=== PATIENT | male | born 1960 | race Caucasian/White ===

== ENCOUNTER 2019-02-24 13:40 | Observation (INO) | payer OTHER ==
[~2019-02-24] VITALS: Ht 177.8 cm; Wt 127.0 kg
--- OUTSIDE RECORDS SUMMARY | 2019-02-24 13:43 | XMS REPORT ---
Author Author [facility] Address Unknown Phone Unavailable Care Team Providers Care Balance Bridge Inspector Name Role Phone ZENIA DAVIS Unavailable Unavailable COOKIE COMBS Unavailable Unavailable Problems This patient has no known problems. Allergies, Adverse Reactions, Alerts This patient has no known allergies or adverse reactions. Medications This patient has no known medications. Results Test Description Test Time Test Comments Text Results Atomic Results Result Comments BASIC METABOLIC PANEL 2018-07-15 05:49:00 SODIUM (BEAKER) (test hwum=167) 142 meq/L 136-145 POTASSIUM (BEAKER) (test wufd=665) 3.9 meq/L 3.5-5.1 CHLORIDE (BEAKER) (test mjma=371) 111 meq/L 98-107 CO2 (BEAKER) (test nboj=469) 22 meq/L 22-29 BLOOD UREA NITROGEN (BEAKER) (test ojmt=957) 16 mg/dL 7-21 CREATININE (BEAKER) (test usxi=147) 1.34 mg/dL 0.57-1.25 GLUCOSE RANDOM (BEAKER) (test relw=294) 94 mg/dL 70-105 CALCIUM (BEAKER) (test oicc=827) 8.6 mg/dL 8.4-10.2 EGFR (BEAKER) (test oucr=8307) 54 mL/min/1.73 sq m ESTIMATED GFR IS NOT ACCURATE CREATININE CLEARANCE IN PREDICTING GLOMERULAR FILTRATION RATE. ESTIMATED GFR IS NOT APPLICABLE FOR DIALYSIS PATIENTS. CBC (HEMOGRAM ONLY)2018-07-15 05:33:00* Test Item Value Reference Range Comments WHITE BLOOD CELL COUNT (BEAKER) (test mjtl=352) 5.8 K/ L 3.5-10.5 RED BLOOD CELL COUNT (BEAKER) (test hebu=355) 3.49 M/ L 4.63-6.08 HEMOGLOBIN (BEAKER) (test fuuy=399) 11.1 GM/DL 13.7-17.5 HEMATOCRIT (BEAKER) (test xgkd=467) 32.1 % 40.1-51.0 MEAN CORPUSCULAR VOLUME (BEAKER) (test qcit=309) 92.0 fL 79.0-92.2 MEAN CORPUSCULAR HEMOGLOBIN (BEAKER) (test xxjp=876) 31.8 pg 25.7-32.2 MEAN CORPUSCULAR HEMOGLOBIN CONC (BEAKER) (test xgxx=659) 34.6 GM/DL 32.3-36.5 RED CELL DISTRIBUTION WIDTH (BEAKER) (test rxrl=224) 13.8 % 11.6-14.4 PLATELET COUNT (BEAKER) (test flau=479) 80 K/CU MM 150-450 MEAN PLATELET VOLUME (BEAKER) (test ouuy=713) 11.7 fL 9.4-12.4 NUCLEATED RED BLOOD CELLS (BEAKER) (test sdby=811) 0 /100 WBC 0-0 [id number] 18:50:00* Test Item Value Reference Range Comments ACTIVATED CLOTTING TIME (BEAKER) (test dhvx=097) 268 sec TESTED AT [place] [id number] 18:50:00* Test Item Value Reference Range Comments ACTIVATED CLOTTING TIME (BEAKER) (test ujvu=936) 252 sec TESTED AT [place] [id number] 18:50:00* Test Item Value Reference Range Comments ACTIVATED CLOTTING TIME (BEAKER) (test tlat=458) 241 sec TESTED AT [address] [id number] 05:27:00* Test Item Value Reference Range Comments PHOSPHORUS (BEAKER) (test qlcp=668) 3.6 mg/dL 2.3-4.7 [id number] 05:27:00* Test Item Value Reference Range Comments MAGNESIUM (BEAKER) (test eceq=185) 2.0 mg/dL 1.6-2.6 BASIC METABOLIC [id number] 05:27:00* Test Item Value Reference Range Comments SODIUM (BEAKER) (test honq=471) 141 meq/L 136-145 POTASSIUM (BEAKER) (test bjhm=878) 3.6 meq/L 3.5-5.1 CHLORIDE (BEAKER) (test rywe=879) 110 meq/L 98-107 CO2 (BEAKER) (test tdlb=733) 22 meq/L 22-29 BLOOD UREA NITROGEN (BEAKER) (test nwwg=173) 19 mg/dL 7-21 CREATININE (BEAKER) (test bkxn=415) 1.37 mg/dL 0.57-1.25 GLUCOSE RANDOM (BEAKER) (test dbvr=960) 95 mg/dL 70-105 CALCIUM (BEAKER) (test pmgp=414) 8.7 mg/dL 8.4-10.2 EGFR (BEAKER) (test chiy=9978) 53 mL/min/1.73 sq m ESTIMATED GFR IS NOT ACCURATE CREATININE CLEARANCE IN PREDICTING GLOMERULAR FILTRATION RATE. ESTIMATED GFR IS NOT APPLICABLE FOR DIALYSIS PATIENTS. CBC (HEMOGRAM ONLY)2018-07-14 05:04:00* Test Item Value Reference Range Comments WHITE BLOOD CELL COUNT (BEAKER) (test cpje=875) 5.5 K/ L 3.5-10.5 RED BLOOD CELL COUNT (BEAKER) (test npzn=067) 3.75 M/ L 4.63-6.08 HEMOGLOBIN (BEAKER) (test yytl=275) 11.7 GM/DL 13.7-17.5 HEMATOCRIT (BEAKER) (test qait=207) 34.1 % 40.1-51.0 MEAN CORPUSCULAR VOLUME (BEAKER) (test ztxv=519) 90.9 fL 79.0-92.2 MEAN CORPUSCULAR HEMOGLOBIN (BEAKER) (test psju=778) 31.2 pg 25.7-32.2 MEAN CORPUSCULAR HEMOGLOBIN CONC (BEAKER) (test uugo=907) 34.3 GM/DL 32.3-36.5 RED CELL DISTRIBUTION WIDTH (BEAKER) (test uyks=759) 13.4 % 11.6-14.4 PLATELET COUNT (BEAKER) (test uitr=585) 91 K/CU MM 150-450 MEAN PLATELET VOLUME (BEAKER) (test lmtk=369) 11.3 fL 9.4-12.4 NUCLEATED RED BLOOD CELLS (BEAKER) (test wsdb=863) 0 /100 WBC 0-0 PET, CARDIAC PERFUSION MULTIPLE STUDIES, REST AND [id number] 15:25:00 Reason for exam:->Chest pain, recent PCIFINAL REPORT PROCEDURE: Rest/Stress MYOCARDIAL PERFUSION PET with regadenoson\XA9\ CPT CODE: 67445 INDICATION: Chest pain HISTORY: Cardiac risk factors: The diabetes, hypertension, hyperlipidemia, CKD. Other cardiovascular history: CAD, MS, PCI, CHF. Recent cardiac symptoms: Chest pain. Current cardiovascular-related medications: Aspirin, carvedilol, bumetanide, atorvastatin. PROTOCOL: Limited low-dose CT imaging was performed for attenuation correction. 40.0 mCi of Rb-82 chloride was injected iv at rest, and gated PET (positron emission tomography) images were obtained. Subsequently, 40.1 mCi of Rb-82 chloride was injected iv at expected peak pharmacologic effect, and gated PET images were obtained. PRELIMINARY STRESS TEST DATA FROM NONINVASIVE CARDIOLOGY: Pharmacologic stress was by 10-second iv infusion of 0 .4 mg of regadenoson. Radiotracer was injected 30 seconds after start of stress. Heart rate was 62 beats/min at rest and 77 beats/min (48% of MPHR) at tracer in jection. BP was 127/74 mmHg at rest and 121/60 mmHg at tracer injection. Stress was stopped for predetermined endpoint. The patient experienced palpitations; tr eatment was not required. Preliminary ECG evaluation revealed sinus rhythm at re st and no ischemic changes with stress. (Final ECG interpretation and other stre ss and monitoring data are reported separately by Cardiology.) IMAGING FINDINGS : Study quality is good. Images obtained after stress injection show redu edita perfusion in the mid anterior wall and basal anterolateral wall. Resting mary kay ges show normal perfusion. LV volume appears normal. RV volume appears normal. G ated images obtained immediately after stress show normal LV wall motion. Gated images obtained at rest show normal LV wall motion. LVEF at rest is 52%. LVEF at stress is 58%. IMPRESSION: 1. Abnormal study. 2. Appropriate pharmacologic s tress. 3. Abnormal myocardial perfusion. There is a mild severity, medium size , reversible, perfusion defect in the midanterior and basal anterolateral LV. 4 . Normal resting LV function. No deterioration of function is noted with pharmac ologic stress. 5. Extracardiac tracer distribution is normal. 6. No previous [facility] study for comparison. Signed: Felipe Chan Verified Date/Time: 07/13/2018 15:25:45 Reading Location: [address] Nuc Med Reading Room [id number] 05:20:00* Test Item Value Reference Range Comments PHOSPHORUS (BEAKER) (test biei=472) 3.8 mg/dL 2.3-4.7 [id number] 05:20:00* Test Item Value Reference Range Comments MAGNESIUM (BEAKER) (test icqq=635) 1.7 mg/dL 1.6-2.6 BASIC METABOLIC [id number] 05:20:00* Test Item Value Reference Range Comments SODIUM (BEAKER) (test lttv=720) 143 meq/L 136-145 POTASSIUM (BEAKER) (test pfqw=154) 3.4 meq/L 3.5-5.1 CHLORIDE (BEAKER) (test lfkn=852) 110 meq/L 98-107 CO2 (BEAKER) (test nkip=658) 21 meq/L 22-29 BLOOD UREA NITROGEN (BEAKER) (test dlym=425) 20 mg/dL 7-21 CREATININE (BEAKER) (test kaka=581) 1.40 mg/dL 0.57-1.25 GLUCOSE RANDOM (BEAKER) (test yvlf=250) 85 mg/dL 70-105 CALCIUM (BEAKER) (test kssn=464) 8.7 mg/dL 8.4-10.2 EGFR (BEAKER) (test hsna=3607) 52 mL/min/1.73 sq m ESTIMATED GFR IS NOT ACCURATE CREATININE CLEARANCE IN PREDICTING GLOMERULAR FILTRATION RATE. ESTIMATED GFR IS NOT APPLICABLE FOR DIALYSIS PATIENTS. CBC (HEMOGRAM ONLY)2018-07-13 04:55:00* Test Item Value Reference Range Comments WHITE BLOOD CELL COUNT (BEAKER) (test ycfw=719) 5.3 K/ L 3.5-10.5 RED BLOOD CELL COUNT (BEAKER) (test imou=848) 3.64 M/ L 4.63-6.08 HEMOGLOBIN (BEAKER) (test wepx=236) 11.5 GM/DL 13.7-17.5 HEMATOCRIT (BEAKER) (test tnqo=639) 33.0 % 40.1-51.0 MEAN CORPUSCULAR VOLUME (BEAKER) (test dqla=758) 90.7 fL 79.0-92.2 MEAN CORPUSCULAR HEMOGLOBIN (BEAKER) (test glxp=219) 31.6 pg 25.7-32.2 MEAN CORPUSCULAR HEMOGLOBIN CONC (BEAKER) (test tjqm=735) 34.8 GM/DL 32.3-36.5 RED CELL DISTRIBUTION WIDTH (BEAKER) (test qbos=162) 13.6 % 11.6-14.4 PLATELET COUNT (BEAKER) (test twrf=349) 81 K/CU MM 150-450 MEAN PLATELET VOLUME (BEAKER) (test czko=074) 11.4 fL 9.4-12.4 NUCLEATED RED BLOOD CELLS (BEAKER) (test rwfk=468) 0 /100 WBC 0-0 BASIC METABOLIC [id number] 22:55:00* Test Item Value Reference Range Comments SODIUM (BEAKER) (test ezvu=136) 139 meq/L 136-145 POTASSIUM (BEAKER) (test gqma=652) 3.4 meq/L 3.5-5.1 CHLORIDE (BEAKER) (test cwjd=704) 106 meq/L 98-107 CO2 (BEAKER) (test ebdl=098) 25 meq/L 22-29 BLOOD UREA NITROGEN (BEAKER) (test nxnf=976) 24 mg/dL 7-21 CREATININE (BEAKER) (test athv=098) 1.45 mg/dL 0.57-1.25 GLUCOSE RANDOM (BEAKER) (test xdyd=819) 129 mg/dL 70-105 CALCIUM (BEAKER) (test dcwn=791) 8.8 mg/dL 8.4-10.2 EGFR (BEAKER) (test ghom=3593) 50 mL/min/1.73 sq m ESTIMATED GFR IS NOT ACCURATE CREATININE CLEARANCE IN PREDICTING GLOMERULAR FILTRATION RATE. ESTIMATED GFR IS NOT APPLICABLE FOR DIALYSIS PATIENTS. [id number] 06:04:00* Test Item Value Reference Range Comments PHOSPHORUS (BEAKER) (test radc=425) 3.9 mg/dL 2.3-4.7 [id number] 06:04:00* Test Item Value Reference Range Comments MAGNESIUM (BEAKER) (test aieb=850) 2.0 mg/dL 1.6-2.6 LIPID [id number] 06:04:00* Test Item Value Reference Range Comments TRIGLYCERIDES (BEAKER) (test vnav=239) 159 mg/dL CHOLESTEROL (JESSICA) (test hvtq=755) 111 mg/dL HDL CHOLESTEROL (JESSICA) (test kduy=319) 30 mg/dL LDL CHOLESTEROL CALCULATED (JESSICA) (test dicn=546) 49 mg/dL Triglyceride Reference Range: Low Risk <150 Borderline 150-199 High Risk 200-499 Very High Risk >=500Cholesterol Reference Range: Low Risk <200 Borderline 200-239 High Risk >240HDL Cholesterol Reference Range: Low Risk >=60 High Risk <40LDL Cholesterol Reference Range: Optimal <100 Near Optimal 100-129 Borderline 130-159 High 160-189 Very High >=190 TROPONIN [id number] 14:44:00* Test Item Value Reference Range Comments TROPONIN I (JESSICA) (test qqiy=234) 0.07 ng/mL 0.00-0.03 Troponin I (TnI) levels must be interpreted in the context of the presenting sym ptoms and the clinical findings. Elevated TnI levels indicate myocardial damage, but are not specific for ischemic heart disease. Elevated TnI levels are seen in patients with other cardiac conditions (including myocarditis and congestive h eart failure), and slight TnI elevations occur in patients with other conditions , including sepsis, renal failure, acidosis, acute neurological disease, and per sistent tachyarrhythmia.TROPONIN [id number] 06:25:00* Test Item Value Reference Range Comments TROPONIN I (JESSICA) (test jojl=688) 0.07 ng/mL 0.00-0.03 Troponin I (TnI) levels must be interpreted in the context of the presenting sym ptoms and the clinical findings. Elevated TnI levels indicate myocardial damage, but are not specific for ischemic heart disease. Elevated TnI levels are seen in patients with other cardiac conditions (including myocarditis and congestive h eart failure), and slight TnI elevations occur in patients with other conditions , including sepsis, renal failure, acidosis, acute neurological disease, and per sistent tachyarrhythmia.RAD, CHEST, 1 VIEW, NON [id number] 01:02:00Reason for exam:->CHEST PAINFINAL REPORT Chest, 1 view. History: Chest pain Comparison: Chest, 02/17/2018.. Findings: The cardiomediastinal silhouette and pulmonary vasculature are within normal limits for a portable exam. The lungs are clear without evidence of consolidation or effusion. The soft tissues and osseous structures are intact. IMPRESSION: No acute cardiopulmonary abnormality. Signed: Cally Moon Verified Date/Time: 07/11/2018 01:02:58 Reading Location: [facility] C013T Transitional Reading Room ONIN [id number] 00:32:00* Test Item Value Reference Range Comments TROPONIN I (BEAKER) (test kezx=049) 0.08 ng/mL 0.00-0.03 Troponin I (TnI) levels must be interpreted in the context of the presenting sym ptoms and the clinical findings. Elevated TnI levels indicate myocardial damage, but are not specific for ischemic heart disease. Elevated TnI levels are seen in patients with other cardiac conditions (including myocarditis and congestive h eart failure), and slight TnI elevations occur in patients with other conditions , including sepsis, renal failure, acidosis, acute neurological disease, and per sistent tachyarrhythmia.B-TYPE NATRIURETIC FACTOR (BNP)2018-07-11 00:29:00* Test Item Value Reference Range Comments B-TYPE NATRIURETIC PEPTIDE (BEAKER) (test xnts=168) 92 pg/mL 0-100 [id number] 00:22:00* Test Item Value Reference Range Comments MAGNESIUM (BEAKER) (test frkb=198) 1.7 mg/dL 1.6-2.6 BASIC METABOLIC [id number] 00:22:00* Test Item Value Reference Range Comments SODIUM (BEAKER) (test nwcx=567) 143 meq/L 136-145 POTASSIUM (BEAKER) (test jhnf=240) 3.8 meq/L 3.5-5.1 CHLORIDE (BEAKER) (test uzsv=506) 107 meq/L 98-107 CO2 (BEAKER) (test btjz=134) 25 meq/L 22-29 BLOOD UREA NITROGEN (BEAKER) (test oyva=145) 24 mg/dL 7-21 CREATININE (BEAKER) (test kvmp=169) 1.71 mg/dL 0.57-1.25 GLUCOSE RANDOM (BEAKER) (test ufgh=586) 85 mg/dL 70-105 CALCIUM (BEAKER) (test ppab=335) 9.1 mg/dL 8.4-10.2 EGFR (BEAKER) (test ftsr=0668) 41 mL/min/1.73 sq m ESTIMATED GFR IS NOT ACCURATE CREATININE CLEARANCE IN PREDICTING GLOMERULAR FILTRATION RATE. ESTIMATED GFR IS NOT APPLICABLE FOR DIALYSIS PATIENTS. [id number] 00:19:00* Test Item Value Reference Range Comments PROTIME (BEAKER) (test ruep=878) 14.3 seconds 11.7-14.7 INR (BEAKER) (test axlz=883) 1.1 <=5.9 PARTIAL THROMBOPLASTIN TIME (BEAKER) (test wewz=931) 34.2 seconds 22.5-36.0 RECOMMENDED COUMADIN/WARFARIN INR THERAPY RANGESSTANDARD DOSE: 2.0 - 3.0 Inclu amy: PROPHYLAXIS for venous thrombosis, systemic embolization; TREATMENT for janet ous thrombosis and/or pulmonary embolus.HIGH RISK: Target INR is 2.5-3.5 for pat ients with mechanical heart valves.CBC W/PLT COUNT & AUTO [id number] 00:14:00* Test Item Value Reference Range Comments WHITE BLOOD CELL COUNT (BEAKER) (test tmdq=541) 6.9 K/ L 3.5-10.5 RED BLOOD CELL COUNT (BEAKER) (test wian=555) 3.82 M/ L 4.63-6.08 HEMOGLOBIN (BEAKER) (test copu=373) 12.2 GM/DL 13.7-17.5 HEMATOCRIT (BEAKER) (test eriu=957) 34.8 % 40.1-51.0 MEAN CORPUSCULAR VOLUME (BEAKER) (test wdmz=748) 91.1 fL 79.0-92.2 MEAN CORPUSCULAR HEMOGLOBIN (BEAKER) (test exve=897) 31.9 pg 25.7-32.2 MEAN CORPUSCULAR HEMOGLOBIN CONC (BEAKER) (test svkq=170) 35.1 GM/DL 32.3-36.5 RED CELL DISTRIBUTION WIDTH (BEAKER) (test gazr=895) 13.4 % 11.6-14.4 PLATELET COUNT (BEAKER) (test dgsj=562) 87 K/CU MM 150-450 MEAN PLATELET VOLUME (BEAKER) (test ytzw=577) 11.2 fL 9.4-12.4 NUCLEATED RED BLOOD CELLS (BEAKER) (test wwoe=598) 0 /100 WBC 0-0 NEUTROPHILS RELATIVE PERCENT (BEAKER) (test btvm=875) 63 % LYMPHOCYTES RELATIVE PERCENT (BEAKER) (test tycn=398) 17 % MONOCYTES RELATIVE PERCENT (BEAKER) (test rxpv=299) 16 % EOSINOPHILS RELATIVE PERCENT (BEAKER) (test uvli=616) 3 % BASOPHILS RELATIVE PERCENT (BEAKER) (test gges=219) 1 % NEUTROPHILS ABSOLUTE COUNT (BEAKER) (test lozh=977) 4.31 K/ L 1.78-5.38 LYMPHOCYTES ABSOLUTE COUNT (BEAKER) (test gddh=604) 1.15 K/ L 1.32-3.57 MONOCYTES ABSOLUTE COUNT (BEAKER) (test csku=931) 1.12 K/ L 0.30-0.82 EOSINOPHILS ABSOLUTE COUNT (BEAKER) (test qbwd=864) 0.21 K/ L 0.04-0.54 BASOPHILS ABSOLUTE COUNT (BEAKER) (test aayu=907) 0.04 K/ L 0.01-0.08 IMMATURE GRANULOCYTES-RELATIVE PERCENT (BEAKER) (test bbae=5441) 0 % 0-1 B-TYPE NATRIURETIC FACTOR (BNP)2018-02-17 03:54:00* Test Item Value Reference Range Comments B-TYPE NATRIURETIC PEPTIDE (BEAKER) (test bpsw=389) 122 pg/mL 0-100 TROPONIN [id number] 03:34:00* Test Item Value Reference Range Comments TROPONIN I (BEAKER) (test xdyb=158) < ng/mL 0.00-0.15 Troponin I (TnI) levels must be interpreted in the context of the presenting sym ptoms and the clinical findings. Elevated TnI levels indicate myocardial damage, but are not specific for ischemic heart disease. Elevated TnI levels are seen in patients with other cardiac conditions (including myocarditis and congestive h eart failure), and slight TnI elevations occur in patients with other conditions , including sepsis, renal failure, acidosis, acute neurological disease, and per sistent tachyarrhythmia.COMPREHENSIVE METABOLIC [id number] 03:31:00* Test Item Value Reference Range Comments TOTAL PROTEIN (BEAKER) (test iutl=237) 6.8 gm/dL 6.0-8.5 Specimen slightly hemolyzed ALBUMIN (BEAKER) (test zujx=4978) 4.3 g/dL 3.5-5.0 Specimen slightly hemolyzed ALKALINE PHOSPHATASE (BEAKER) (test dfdp=757) 68 U/L 30-115 BILIRUBIN TOTAL (BEAKER) (test ldlx=380) 0.6 mg/dL 0.1-1.2 Specimen slightly hemolyzed SODIUM (BEAKER) (test ierb=641) 144 meq/L 135-148 POTASSIUM (BEAKER) (test mdhi=964) 3.8 meq/L 3.6-5.5 Specimen slightly hemolyzed CHLORIDE (BEAKER) (test nqtk=112) 112 meq/L 98-106 CO2 (BEAKER) (test huzd=934) 19 meq/L 20-29 BLOOD UREA NITROGEN (BEAKER) (test zgjy=989) 30 mg/dL 10-26 CREATININE (BEAKER) (test pqog=599) 1.47 mg/dL 0.50-1.20 Specimen slightly hemolyzed GLUCOSE RANDOM (BEAKER) (test afru=958) 106 mg/dL 70-110 CALCIUM (BEAKER) (test qyhh=712) 8.8 mg/dL 8.5-10.5 AST (SGOT) (BEAKER) (test nosz=238) 18 U/L 5-40 Specimen slightly hemolyzed ALT (SGPT) (BEAKER) (test jfzq=875) 21 U/L 5-50 Specimen slightly hemolyzed EGFR (BEAKER) (test sptz=5509) 49 mL/min/1.73 sq m ESTIMATED GFR IS NOT ACCURATE CREATININE CLEARANCE IN PREDICTING GLOMERULAR FILTRATION RATE. ESTIMATED GFR IS NOT APPLICABLE FOR DIALYSIS PATIENTS. RAD, CHEST, 2 [id number] 03:18:00Reason for exam:->DIZZINESSFINAL REPORT Examination: Two view Chest X-ray. CLINICAL HISTORY: Dizziness COMPARISON: 09/30/2015 The cardiomediastinal and hilar contours are unremarkable. There is no focal consolidation, pleural effusion, pneumothorax or evidence of overt pulmonary edema. There is no acute bony abnormality. IMPRESSION: No acute abnormality. Signed: Tarik [place]port Verified Date /Time: 02/17/2018 03:18:42 Reading Location: [address] Reading [facility] W/PLT COUNT & AUTO [id number] 03:14:00* Test Item Value Reference Range Comments WHITE BLOOD CELL COUNT (BEAKER) (test cytr=702) 7.2 K/ L 4.0-10.0 RED BLOOD CELL COUNT (BEAKER) (test cpqr=526) 3.95 M/ L 4.20-5.80 HEMOGLOBIN (BEAKER) (test mrus=898) 12.7 GM/DL 13.0-16.8 HEMATOCRIT (BEAKER) (test hntp=842) 37.0 % 40.0-50.0 MEAN CORPUSCULAR VOLUME (BEAKER) (test tvua=602) 93.7 fL 82.0-98.0 MEAN CORPUSCULAR HEMOGLOBIN (BEAKER) (test ybml=169) 32.1 pg 27.0-33.0 MEAN CORPUSCULAR HEMOGLOBIN CONC (BEAKER) (test rlvy=659) 34.3 GM/DL 32.0-36.0 RED CELL DISTRIBUTION WIDTH (BEAKER) (test tbeg=774) 13.3 % 10.3-14.2 PLATELET COUNT (BEAKER) (test khtw=079) 122 K/CU MM 150-430 MEAN PLATELET VOLUME (BEAKER) (test ldfy=428) 10.0 fL 6.5-10.5 NUCLEATED RED BLOOD CELLS (BEAKER) (test gqcn=239) 0 /100 WBC 0-0 NEUTROPHILS RELATIVE PERCENT (BEAKER) (test osch=191) 65 % LYMPHOCYTES RELATIVE PERCENT (BEAKER) (test lcoj=156) 17 % MONOCYTES RELATIVE PERCENT (BEAKER) (test czzl=968) 13 % EOSINOPHILS RELATIVE PERCENT (BEAKER) (test znwi=401) 5 % BASOPHILS RELATIVE PERCENT (BEAKER) (test idtp=684) 1 % NEUTROPHILS ABSOLUTE COUNT (BEAKER) (test hzjo=119) 4.60 K/ L 1.80-8.00 LYMPHOCYTES ABSOLUTE COUNT (BEAKER) (test umix=164) 1.20 K/ L 1.48-4.50 MONOCYTES ABSOLUTE COUNT (BEAKER) (test qmoq=191) 0.90 K/ L 0.00-1.30 EOSINOPHILS ABSOLUTE COUNT (BEAKER) (test cpjx=950) 0.30 K/ L 0.00-0.50 BASOPHILS ABSOLUTE COUNT (BEAKER) (test ipel=936) 0.10 K/ L 0.00-0.20 CT, BRAIN, WITHOUT [id number] 03:13:00Reason for exam:->DIZZINESSWhat is the patient's sedation requirement?->No SedationFINAL REPORT CT, BRAIN, WITHOUT CONTRAST CLINICAL INDICATION: DIZZINESSvertigo COMPARISON: None TECHNIQUE: Noncontrast axial CT imaging of the brain and skull. DOSE REDUCTION: Dose modulation, iterative reconstruction, and/or weight-based adjustment of the mA/kV was utilized to reduce the radiation dose to as low as reasonably achievable. FINDINGS:Cerebral parenchyma: Unr emarkable.Midline structures: Normally positioned.Cerebellum and brainstem: Norm al.Ventricles: Normal volume.Extra-axial spaces: Unremarkable. Calvarium and sku ll base: Intact.Paranasal sinuses and mastoid air cells: Visible chambers are cl ear.Orbital contents: Included portions unremarkable. Additional findings: None. IMPRESSION: No acute intracranial abnormality. If there is persistent clinical concern for intracranial pathology, MR examination is recommended for further c haracterization. Signed: JR Angelita, Rufina Vallejo Verified Date/Time: 02/17/2018 03:13:59 Reading Location: [address] Body Reading Room [facility] signed by: RUFINA PERLA on 02/17/2018 03:13 AM URINALYSIS W/ [id number] 03:06:00* Test Item Value Reference Range Comments COLOR (BEAKER) (test stin=187) Yellow CLARITY (BEAKER) (test dnud=853) Clear SPECIFIC GRAVITY UA (BEAKER) (test uvxk=304) 1.015 1.001-1.035 PH UA (BEAKER) (test gnmg=605) 6.0 5.0-8.0 PROTEIN UA (BEAKER) (test uvdu=506) Negative Negative GLUCOSE UA (BEAKER) (test kxcp=962) Negative Negative KETONES UA (BEAKER) (test kdij=230) Negative Negative BILIRUBIN UA (BEAKER) (test katp=370) Negative Negative BLOOD UA (BEAKER) (test cnoi=737) Negative Negative NITRITE UA (BEAKER) (test cbpb=292) Negative Negative LEUKOCYTE ESTERASE UA (BEAKER) (test etju=168) Negative Negative UROBILINOGEN UA (BEAKER) (test ytxs=622) 0.2 mg/dL 0.2-1.0 BACTERIA (BEAKER) (test ytuq=411) Occasional RBC UA-MANUAL (BEAKER) (test ydfq=2531) <5 /HPF WBC UA-MANUAL (BEAKER) (test bjvv=1595) <5 /HPF SQUAMOUS EPITHELIAL MANUAL (BEAKER) (test bepp=4182) None Seen /HPF SOURCE(BEAKER) (test nigb=7495)
--- OUTSIDE RECORDS SUMMARY | 2019-02-24 13:43 | XMS REPORT | Clinical Summary ---
Author Author [facility] Address Unknown Phone Unavailable Care Team Providers Care Electrical And Radio Mechanic Name Role Phone Aldo Enriquez MD PCP Elizabeth Coleman MD ([place]) 9 Allergies No Known Allergies Medications End Date Status Medication Sig Dispensed Refills Start Date Active cholecalciferol (VITAMIN Take 5,000 0 D3) 1,000 units tablet Units by mouth daily. Active multivitamin (THERAGRAN) Take 1 tablet 0 tablet by mouth daily. Active glimepiride (AMARYL) 4 MG Take 2 mg by 0 tabletIndications: CAD mouth every (coronary artery morning disease), Hypertension, before Hyperlipidemia breakfast . Active linagliptin (TRADJENTA) 5 Take 5 mg by 0 mg TabIndications: CAD mouth daily. (coronary artery disease), Hypertension, Hyperlipidemia Active gabapentin (NEURONTIN) Take by mouth 0 300 MG 2 (two) times capsuleIndications: CAD daily . (coronary artery disease), Hypertension, Hyperlipidemia Active atorvastatin (LIPITOR) 80 Take 1 tablet 90 tablet 3 05/23/201 MG tabletIndications: CAD (80 mg total) 5 (coronary artery by mouth disease), Hypertension, daily. Hyperlipidemia Active carvedilol (COREG) 25 MG Take 1 tablet 60 tablet 3 tabletIndications: (25 mg total) 5 Hyperlipidemia by mouth 2 (two) times daily with breakfast and dinner. Active olmesartan (BENICAR) 40 Take 1 tablet 30 tablet 3 MG tablet (40 mg total) 5 by mouth daily. Active bumetanide (BUMEX) 0.5 MG Take 0.5 mg 0 tablet by mouth 2 (two) times daily . Active febuxostat 40 mg tablet Take 40 mg by 0 mouth daily. Active predniSONE (DELTASONE) 5 Take 5 mg by 0 MG tablet mouth daily. Active traMADol (ULTRAM) 50 mg Take 50 mg by 0 tablet mouth every 6 (six) hours as needed for Pain. Active amLODIPine (NORVASC) 10 Take 10 mg by 0 MG tablet mouth. 8 Active colchicine (COLCRYS) 0.6 Take 0.6 mg 0 mg tablet by mouth Only takes MWF. Active hydroxychloroquine Take 200 mg 0 (PLAQUENIL) 200 mg tablet by mouth. 6 Active aspirin 325 MG tablet Take 325 mg 0 by mouth daily. Active clopidogrel (PLAVIX) 75 Take 75 mg by 0 mg tablet mouth daily. Active brimonidine-timolol 1 drop 2 0 (COMBIGAN) 0.2-0.5 % (two) times ophthalmic solution daily. 07/08/2019 Active acetaminophen (TYLENOL) Take 2 30 tablet 0 325 MG tablet tablets (650 8 mg total) by mouth every 4 (four) hours as needed for up to 360 days. 07/13/2018 Discontinued olmesartan (BENICAR) 40 Take 40 mg by 0 MG tablet mouth. 8 07/13/2018 Discontinued atorvastatin (LIPITOR) 80 Take 80 mg by 0 MG tablet mouth. 8 07/13/2018 Discontinued bumetanide (BUMEX) 1 MG Take 1 mg by 0 tablet mouth. 8 07/13/2018 Discontinued carvedilol (COREG) 25 MG Take 25 mg by 0 tablet mouth. 7 02/27/2018 meclizine (ANTIVERT) 25 Take 1 tablet 30 tablet 0 mg tablet (25 mg total) 8 by mouth 3 (three) times daily as needed for up to 10 days. 08/13/2018 isosorbide mononitrate Take 1 tablet 30 tablet 0 (IMDUR) 60 MG 24 hr (60 mg total) 8 tablet by mouth daily for 30 days. Active Problems Problem Noted Date Hypokalemia 07/13/2018 Hypomagnesemia 07/13/2018 Hypothyroidism 07/13/2018 RA (rheumatoid arthritis) 07/13/2018 Metabolic acidosis 07/13/2018 Precordial pain 07/11/2018 Sinus tachycardia 12/28/2015 Myositis 12/28/2015 Inflammation around joint 12/28/2015 Pneumonia 09/30/2015 Hypertension 05/23/2015 Hyperlipidemia 05/23/2015 Symptomatic anemia 11/02/2014 Anemia 11/02/2014 Primary hyperparathyroidism 06/16/2014 Chronic kidney failure 04/11/2014 BP (high blood pressure) 04/11/2014 AVINASH (acute kidney injury) 03/26/2014 Hypercalcemia 03/26/2014 Hyperparathyroidism 03/26/2014 Nephrolithiasis 03/26/2014 Gout 03/26/2014 CAD (coronary artery disease) 03/26/2014 Encounters Care Team Description Date Type Specialty Jason Estrada MD L CATH & PCI 07/14/2018 Surgery Tim Grady MD Ibe, MD Sienna Estrada Khannan K., MD Narcisse, Demar Sam III, MD Precordial pain (Primary Dx); Dyspnea on minimal exertion; Elevated troponin; History of hypertension; History of coronary artery stent placement; AVINASH (acute kidney injury) (HCC); Chronic renal failure, stage 3 (moderate) (HCC); Hypertension, unspecified type; Unstable angina (HCC); Coronary artery disease involving [place] coronary artery of [place] heart with angina pectoris (HCC); Essential hypertension; Hypokalemia; Hypomagnesemia; Hypercalcemia; Mixed hyperlipidemia 07/11/2018 Hospital Cardiology - Encounter 07/15/2018 07/10/2018 Orders Only General Internal Medicine after 02/23/2018 Family History Medical History Relation Name Comments Hyperlipidemia Brother Heart disease Father Hypertension Father Colon cancer Mother Diabetes Sister Relation Name Status Comments Brother Father Mother Sister Social History Date Tobacco Use Types Packs/Day Years Used Former Smoker Smokeless Tobacco: Never Used Comments: quit smoking 2006 Alcohol Use Drinks/Week oz/Week Comments No Sex Assigned at Date Recorded Not on file Industry Job Start Date Occupation Not on file Not on file Not on file Travel End Travel History Travel Start No recent travel history available. Last Filed Vital Signs Time Taken Vital Sign Reading 07/15/2018 8:25 AM CDT Blood Pressure 151/71 07/15/2018 8:25 AM CDT Pulse 64 07/15/2018 8:25 AM CDT Temperature 37.2 C (99 F) 07/15/2018 8:25 AM CDT Respiratory Rate 18 07/15/2018 8:25 AM CDT Oxygen Saturation 98% 07/12/2018 7:00 PM CDT Inhaled Oxygen 21% Concentration 07/14/2018 8:14 AM CDT Weight 123.6 kg (272 lb 6.4 oz) 07/11/2018 3:45 AM CDT Height 182.9 cm (6') 07/14/2018 8:14 AM CDT Body Mass Index 36.94 Plan of Treatment Not on file Implants Device Identifier Shelf Expiration Date Model / Serial / Lot Implanted Type Area Manufactur er [id number] 05/26/2020 [id number] / / [id number] Synergy Cardiovasc N/A: Heart [place] Implanted: Qty: 1 on 07/14/2018 by ulJason Izaguirre MD [id number] 04/04/2019 [id number] / / [id number] Device Clsr Angio-Seal Vip 6fr Cardiovasc Right: Groin ST DANI [id number] - [id number] ular MED:CARDIA Implanted: Qty: 1 on 07/14/2018 by Jason Escobedo MD 12/04/2015 [id number] / / [id number] Stent,Uret F/G Contour Injection Uro Stent Bilateral: [place] 6.0/28 - [id number] Ureter SCIENTIFIC Implanted: Qty: 1 on 03/23/2014 by Melvin Loo MD Procedures Comments Procedure Name Priority Date/Time Associated Diagnosis VASCULAR DIAGRAM -SCAN 01/19/2019 12:43 PM CDT CARDIAC CATH REPORT - 07/16/2018 SCAN 11:00 AM CDT RHYTHM STRIP - SCAN 07/16/2018 11:00 AM CDT VASCULAR DIAGRAM -SCAN 07/16/2018 11:00 AM CDT CBC (HEMOGRAM ONLY) Routine 07/15/2018 5:25 AM CDT BASIC METABOLIC PANEL (7) Routine 07/15/2018 5:25 AM CDT L CATH & PCI 07/14/2018 Chest pain, unspecified 7:26 PM CDT type POCT-ACT Routine 07/14/2018 6:28 PM CDT POCT-ACT Routine 07/14/2018 5:53 PM CDT POCT-ACT Routine 07/14/2018 5:27 PM CDT CBC (HEMOGRAM ONLY) Routine 07/14/2018 4:22 AM CDT BASIC METABOLIC PANEL (7) Routine 07/14/2018 4:22 AM CDT PHOSPHORUS Routine 07/14/2018 4:22 AM CDT MAGNESIUM Routine 07/14/2018 4:22 AM CDT NM CARDIAC PET PERFUSION Routine 07/13/2018 REST AND/OR STRESS 8:45 AM CDT TREADMILL Routine 07/13/2018 TOLERANCE(NON-NUCLEAR 8:37 AM CDT TREADMILL) ECG 12-LEAD Routine 07/13/2018 8:25 AM CDT ECG 12-LEAD Routine 07/13/2018 8:25 AM CDT Procedure Note - Interface, External Ris In - 07/13/2018 8:54 AM CDT Ventricula r Rate 57 BPM Atrial Rate 57 BPM QRS Duration 86 ms Q-T Interval 468 ms QTC Calculatio n(Bazett) 455 ms R [place] 92 degrees T [place] 49 degrees Sinus bradycardi a Rightward axis Borderline ECG CBC (HEMOGRAM ONLY) Routine 07/13/2018 4:19 AM CDT BASIC METABOLIC PANEL (7) Routine 07/13/2018 4:19 AM CDT PHOSPHORUS Routine 07/13/2018 4:19 AM CDT MAGNESIUM Routine 07/13/2018 4:19 AM CDT BASIC METABOLIC PANEL (7) STAT 07/12/2018 10:19 PM CDT PHOSPHORUS Routine 07/12/2018 5:07 AM CDT MAGNESIUM Routine 07/12/2018 5:07 AM CDT LIPID PANEL Routine 07/12/2018 5:07 AM CDT TROPONIN I Routine 07/11/2018 2:04 PM CDT ECG 12-LEAD Routine 07/11/2018 8:47 AM CDT ECG 12-LEAD Routine 07/11/2018 8:47 AM CDT Procedure Note - Interface, External Ris In - 07/11/2018 8:52 AM CDT Ventricula r Rate 72 BPM Atrial Rate 72 BPM P-R Interval 166 ms QRS Duration 92 ms Q-T Interval 434 ms QTC Calculatio n(Bazett) 475 ms P [place] 51 degrees R [place] 31 degrees T [place] 28 degrees Normal sinus rhythm Normal ECG When compared with ECG of 8 23:45, No significan t change was found ED ECG INTERPRETATION Routine 07/11/2018 8:30 AM CDT TROPONIN I Routine 07/11/2018 5:45 AM CDT XR CHEST 1 VIEW STAT 07/11/2018 PORTABLE/BEDSIDE 12:41 AM CDT CBC W/PLT COUNT & AUTO STAT 07/10/2018 DIFFERENTIAL 11:59 PM CDT B-TYPE NATRIURETIC FACTOR STAT 07/10/2018 (BNP) 11:59 PM CDT PT/APTT STAT 07/10/2018 11:59 PM CDT CBC W/PLT COUNT & AUTO STAT 07/10/2018 DIFFERENTIAL 11:59 PM CDT TROPONIN I STAT 07/10/2018 11:59 PM CDT MAGNESIUM STAT 07/10/2018 11:59 PM CDT BASIC METABOLIC PANEL (7) STAT 07/10/2018 11:59 PM CDT ECG 12-LEAD STAT 07/10/2018 11:45 PM CDT after 02/23/2018 Results * VASCULAR DIAGRAM -SCAN (01/19/2019 12:43 PM CDT) Only the most recent of 2 results within the time period is included. Narrative Performed At * CARDIAC CATH REPORT - SCAN (07/16/2018 11:00 AM CDT) Narrative Performed At * RHYTHM STRIP - SCAN (07/16/2018 11:00 AM CDT) Narrative Performed At * CBC (Hemogram only) (07/15/2018 5:25 AM CDT) Only the most recent of 3 results within the time period is included. WBC 5.8 3.5 - 10.5 K/L [facility] RBC 3.49 (L) 4.63 - 6.08 M/L [facility] Hemoglobin 11.1 (L) 13.7 - 17.5 GM/DL [facility] Hematocrit 32.1 (L) 40.1 - 51.0 % [facility] MCV 92.0 79.0 - 92.2 fL [facility] MCH 31.8 25.7 - 32.2 pg [facility] MCHC 34.6 32.3 - 36.5 GM/DL [facility] RDW 13.8 11.6 - 14.4 % [facility] Platelets 80 (L) 150 - 450 K/CU MM [facility] MPV 11.7 9.4 - 12.4 fL [facility] nRBC 0 0 - 0 /100 WBC [facility] Specimen Blood Performing Organization Address City/State/Zipcode Phone Number [facility] [address] [place] [address] MEDICAL [facility]ENTER * Basic Metabolic Panel (07/15/2018 5:25 AM CDT) Only the most recent of 5 results within the time period is included. Sodium 142 136 - 145 meq/L [facility] Potassium 3.9 3.5 - 5.1 meq/L [facility] Chloride 111 (H) 98 - 107 meq/L [facility] CO2 22 22 - 29 meq/L [facility] BUN 16 7 - 21 mg/dL [facility] Creatinine 1.34 (H) 0.57 - 1.25 mg/dL [facility] Glucose 94 70 - 105 mg/dL [facility] Calcium 8.6 8.4 - 10.2 mg/dL [facility] EGFR 54Comment: ESTIMATED GFR IS mL/min/1.73 sq m [facility] NOT ACCURATE CREATININE [facility] CLEARANCE IN PREDICTING GLOMERULAR FILTRATION RATE. ESTIMATED GFR IS NOT APPLICABLE FOR DIALYSIS PATIENTS. Specimen Blood Performing Organization Address City/[facility] Phone Number [place] [phone] * POC ACTIVATED CLOTTING TIME (07/14/2018 6:28 PM CDT) Only the most recent of 3 results within the time period is included. Activated Clotting Time 268Comment: [place] [place] [address] Specimen Blood Performing Organization Address [facility] Cent[facility]ode Phone Number [place] [phone] [place] [address] * Phosphorus (07/14/2018 4:22 AM CDT) Only the most recent of 3 results within the time period is included. Phosphorus 3.6 2.3 - 4.7 mg/dL [facility] Specimen Blood Performing Organization Address City/[facility] [place] [address] [phone] [place] [address] * Magnesium (07/14/2018 4:22 AM CDT) Only the most recent of 4 results within the time period is included. Magnesium 2.0 1.6 - 2.6 mg/dL [facility] Specimen Blood Performing Organization Address City/State/Zipcode Phone Number [facility] [address] [place] [address] MEDICAL CENTER * NM myocardial perfusion PET (rest and stress) (07/13/2018 8:45 AM CDT) Specimen Narrative Performed At FINAL REPORT [facility] PROCEDURE:Rest/Stress MYOCARDIAL PERFUSION PET with regadenoson\XA9\ CPT CODE:11544 INDICATION:Chest pain HISTORY:Cardiac risk factors: The diabetes, hypertension, hyperlipidemia, CKD. Other cardiovascular history: CAD, MN, PCI, CHF. Recent cardiac symptoms: Chest pain. Current cardiovascular-related medications: Aspirin, carvedilol, bumetanide, atorvastatin. PROTOCOL:Limited low-dose CT imaging was performed for attenuation correction. 40.0 mCi of Rb-82 chloride was injected iv at rest, and gated PET (positron emission tomography) images were obtained. Subsequently, 40.1 mCi of Rb-82 chloride was injected iv at expected peak pharmacologic effect, and gated PET images were obtained. PRELIMINARY STRESS TEST DATA FROM NONINVASIVE CARDIOLOGY: Pharmacologic stress was by 10-second iv infusion of 0.4 mg of regadenoson. Radiotracer was injected 30 seconds after start of stress. Heart rate was 62 beats/min at rest and 77 beats/min (48% of MPHR) at tracer injection. BP was 127/74 mmHg at rest and 121/60 mmHg at tracer injection. Stress was stopped for predetermined endpoint. The patient experienced palpitations; treatment was not required. Preliminary ECG evaluation revealed sinus rhythm at rest and no ischemic changes with stress. (Final ECG interpretation and other stress and monitoring data are reported separately by Cardiology.) IMAGING FINDINGS:Study quality is good. Images obtained after stress injection show reduced perfusion in the mid anterior wall and basal anterolateral wall. Resting images show normal perfusion. LV volume appears normal. RV volume appears normal. Gated images obtained immediately after stress show normal LV wall motion. Gated images obtained at rest show normal LV wall motion. LVEF at rest is 52%. LVEF at stress is 58%. IMPRESSION: 1. Abnormal study.2. Appropriate pharmacologic stress.3. Abnormal myocardial perfusion.There is a mild severity, medium size, reversible, perfusion defect in the midanterior and basal anterolateral LV.4. Normal resting LV function. No deterioration of function is noted with pharmacologic stress.5. Extracardiac tracer distribution is normal.6. No previous [facility] study for comparison. Signed: Yuri Chan MD Report Verified Date/Time:07/13/2018 15:25:45 Reading Location: [address] [id number] [facility] Reading Room Procedure Note Interface, External Ris In - 07/13/2018 3:27 PM CDT FINAL REPORT PROCEDURE: Rest/Stress MYOCARDIAL PERFUSION PET with regadenoson\XA9\ CPT CODE: 74127 INDICATION: Chest pain HISTORY: Cardiac risk factors: The diabetes, hypertension, hyperlipidemia, CKD. Other cardiovascular history: CAD, MN, PCI, CHF. Recent cardiac symptoms: Chest pain. [...] stress was by 10-second iv infusion of 0.4 mg of regadenoson. Radiotracer was injected 30 seconds after start of stress. Heart rate was 62 beats/min at rest and 77 beats/min (48% of MPHR) at tracer injection. BP was 127/74 mmHg at rest and 121/60 mmHg at tracer injection. Stress was stopped for predetermined endpoint. The patient experienced palpitations; treatment was not required. Preliminary ECG evaluation revealed sinus rhythm at rest and no ischemic changes with stress. (Final ECG interpretation and other stress and monitoring data are reported separately by Cardiology.) IMAGING FINDINGS: Study quality is good. Images obtained after stress injection show reduced perfusion in the mid anterior wall and basal anterolateral wall. Resting images show normal perfusion. LV volume appears normal. RV volume appears normal. Gated images obtained immediately after stress show normal LV wall motion. Gated images obtained at rest show normal LV wall motion. LVEF at rest is 52%. LVEF at stress is 58%. IMPRESSION: 1. Abnormal study. 2. Appropriate pharmacologic stress. 3. Abnormal myocardial perfusion. There is a mild severity, medium size, reversible, perfusion defect in the midanterior and basal anterolateral LV. 4. Normal resting LV function. No deterioration of function is noted with pharmacologic stress. 5. Extracardiac tracer distribution is normal. 6. No previous [facility] study for comparison. Signed: Yuri Chan MD Report Verified Date/Time: 07/13/2018 15:25:45 Reading Location: [address] Reading Room Performing Organization Address City/State/Zipcode Phone Number [facility] * Treadmill tolerance(Non-Nuclear Treadmill) (07/13/2018 8:37 AM CDT) Specimen Narrative Performed At Protocol Name Regadenoson [facility] MUSE Time In Exercise Phase 00:01:00 Max. Systolic BP 121 mmHg Max Diastolic BP 60 mmHg Max Heart Rate 77 BPM Max Predicted Heart Rate 160 BPM Reason For Termination Predetermined end point Reason for Test Chest Pain Target HR Formula (220 - Age)*100% Arrhythmias none Resting ECG Normal sinus rhythm ST Changes No Significant Changes Overall Impression Indeterminate due to pharmacological stress Chest Pain none HR Response To Exercise BP Response To Exercise ASA,Carvedilol BUMEX lovenox LIPITOR Labetolol NORVASC Confirmed by fellow Allan Payne ([id number]) on 07/13/2018 9:04:12 AM Confirmed by MD ROWELL JOSEPH P ([id number]) on 08/07/2018 6:08:09 AM Procedure Note Interface, External Ris In - 08/07/2018 6:08 AM CDT Protocol Name Regadenoson Time In Exercise Phase 00:01:00 Max. Systolic BP 121 mmHg Max Diastolic BP 60 mmHg Max Heart Rate 77 BPM Max Predicted Heart Rate 160 BPM Reason For Termination Predetermined end point Reason for Test Chest Pain Target HR Formula (220 - Age)*100% Arrhythmias none Resting ECG Normal sinus rhythm ST Changes No Significant Changes Overall Impression Indeterminate due to pharmacological stress Chest Pain none HR Response To Exercise BP Response To Exercise ASA,Carvedilol BUMEX lovenox LIPITOR Labetolol NORVASC Confirmed by fellow Allan Payne ([id number]) on 07/13/2018 9:04:12 AM Confirmed by MD ROWELL JOSEPH P ([id number]) on 08/07/2018 6:08:09 AM Performing Organization Address City/State/Zipcode Phone Number [employer] MUSE * ECG 12 lead (07/13/2018 8:25 AM CDT) Only the most recent of 3 results within the time period is included. Specimen Narrative Performed At Ventricular Rate 57 BPM [facility] Atrial Rate 57 BPM QRS Duration 86 ms Q-T Interval 468 ms QTC Calculation(Bazett) 455 ms R Wood[place] 92 degrees T [place] 49 degrees Sinus bradycardia Rightward axis Borderline ECG Confirmed by MD NORMAN, IHAB ([id number]) on 07/13/2018 1:43:20 PM Procedure Note Interface, External Ris In - 07/13/2018 1:43 PM CDT Ventricular Rate 57 BPM Atrial Rate 57 BPM QRS Duration 86 ms Q-T Interval 468 ms QTC Calculation(Bazett) 455 ms R [place] 92 degrees T [place] 49 degrees Sinus bradycardia Rightward axis Borderline ECG Confirmed by MD NORMAN, IHAB ([id number]) on 07/13/2018 1:43:20 PM Performing Organization Address City/[facility] Phone Number [facility] * Lipid panel (07/12/2018 5:07 AM CDT) Triglycerides 159 mg/dL [facility] Cholesterol 111 mg/dL [facility] HDL 30 mg/dL [facility] LDL Calculated 49 mg/dL [facility] Specimen Blood Narrative Performed At Triglyceride Reference Range: [facility] Low Risk <150 [facility] [id number] High Risk 200-499 Very High Risk>=500 Cholesterol Reference Range: Low Risk <200 [id number] High Risk>240 HDL Cholesterol Reference Range: Low Risk >=60 High Risk <40 LDL Cholesterol Reference Range: Optimal<100 Near [id number] Very High >=190 Performing Organization Address City/State/Zipcode Phone Number [place] [phone] [place] [address] MEDICAL CENTER * Troponin I (07/11/2018 2:04 PM CDT) Only the most recent of 3 results within the time period is included. Troponin I 0.07 (H) 0.00 - 0.03 ng/mL [facility] Specimen Blood Narrative Performed At Troponin I (TnI) levels must be interpreted in the context of the presenting [facility] symptoms and the clinical findings. Elevated TnI levels indicate myocardial [facility] damage, but are not specific for ischemic heart disease. Elevated TnI levels are seen in patients with other cardiac conditions (including myocarditis and congestive heart failure), and slight TnI elevations occur in patients with other conditions, including sepsis, renal failure, acidosis, acute neurological disease, and persistent tachyarrhythmia. Performing Organization Address City/State/Zipcode Phone Number [facility] [address] [place] [address] [facility] * ED ECG Interpretation (07/11/2018 8:30 AM CDT) Narrative Performed At Tim Grady MD 07/11/20188:30 AM ECG/EKG Interpretation Date/Time: 07/10/2018 11:45 PM Performed by: TIM GRADY Authorized by: TIM GRADY The ECG was interpreted by ED physician. This ECG was compared with previous ECG(s).Rate is normal rate. Heart rate is 73 BPM. Conduction: conduction normal. ST segments normal. T waves normal. [place] is normal. Other findings: no other findings. Clinical Impression: normal ECGECG reviewed and does not meet STEMI criteria. * XR chest 1 view portable / bedside (07/11/2018 12:41 AM CDT) Specimen Narrative Performed At FINAL REPORT [facility] Chest, 1 view. History: Chest pain Comparison: Chest, 02/17/2018.. Findings: The cardiomediastinal silhouette and pulmonary vasculature are within normal limits for a portable exam. The lungs are clear without evidence of consolidation or effusion.The soft tissues and osseous structures are intact. IMPRESSION: No acute cardiopulmonary abnormality. Signed: Cally Moon MD Report Verified Date/Time:07/11/2018 01:02:58 Reading Location: [facility] C0[facility] Transitional Reading Room Procedure Note Interface, External Ris In - 07/11/2018 1:05 AM CDT FINAL REPORT Chest, 1 view. History: Chest pain Comparison: Chest, 02/17/2018.. Findings: The cardiomediastinal silhouette and pulmonary vasculature are within normal limits for a portable exam. The lungs are clear without evidence of consolidation or effusion. The soft tissues and osseous structures are intact. IMPRESSION: No acute cardiopulmonary abnormality. Signed: Cally Moon MD Report Verified Date/Time: 07/11/2018 01:02:58 Reading Location: [address] Transitional Reading Room Performing Organization Address City/[facility]/Zipcode Phone Number [facility] * PT/PTT (07/10/2018 11:59 PM CDT) Protime 14.3 11.7 - 14.7 seconds [facility] INR 1.1 <=5.9 [facility] PTT 34.2 22.5 - 36.0 seconds [facility] Specimen Blood Narrative Performed At RECOMMENDED COUMADIN/WARFARIN INR THERAPY RANGES [facility] STANDARD DOSE: 2.0 - 3.0 Includes: PROPHYLAXIS for venous thrombosis, [facility] systemic embolization; TREATMENT for venous thrombosis and/or pulmonary embolus. HIGH RISK: Target INR is 2.5-3.5 for patients with mechanical heart valves. Performing Organization Address [facility] Cent[facility]ode Phone Number [place] [phone] [place] [address] MEDICAL CENTER * CBC with platelet count + automated diff (07/10/2018 11:59 PM CDT) WBC 6.9 3.5 - 10.5 K/L [facility] RBC 3.82 (L) 4.63 - 6.08 M/L [facility] Hemoglobin 12.2 (L) 13.7 - 17.5 GM/DL [facility] [facility] Hematocrit 34.8 (L) 40.1 - 51.0 % [facility] MCV 91.1 79.0 - 92.2 fL [facility] MCH 31.9 25.7 - 32.2 pg [facility] MCHC 35.1 32.3 - 36.5 GM/DL [facility] RDW 13.4 11.6 - 14.4 % [facility] Platelets 87 (L) 150 - 450 K/CU MM [facility] MPV 11.2 9.4 - 12.4 fL [facility] nRBC 0 0 - 0 /100 WBC [facility] % Neutros 63 % [facility] % Lymphs 17 % [facility] % Monos 16 % [facility] % Eos 3 % [facility] % Baso 1 % [facility] # Neutros 4.31 1.78 - 5.38 K/L [facility] # Lymphs 1.15 (L) 1.32 - 3.57 K/L [facility] # Monos 1.12 (H) 0.30 - 0.82 K/L [facility] # Eos 0.21 0.04 - 0.54 K/L [facility] # Baso 0.04 0.01 - 0.08 K/L [facility] Immature 0 0 - 1 % [facility] Granulocytes-[facility] Specimen Blood Performing Organization Address City/State/Zipcode Phone Number [facility] [address] [place] [address] [facility] * B-type Natriuretic Factor (BNP) (07/10/2018 11:59 PM CDT) BNP 92 0 - 100 pg/mL [facility] Specimen Blood Performing Organization Address City/State/Zipcode Phone Number [facility] [address] [place] [address] [facility] after 02/23/2018 Insurance Payer Benefit Subscriber ID Type Phone Address Plan / Group AETNA - MGD CARE AETNA HMO xxxxxxxxxx HMO/POS POS QPOS Advance Directives For more information, please contact: [address] [phone] Date Inactivated Comments Code Status Date Activated 07/15/2018 1:58 PM Full Code 07/11/2018 5:15 AM This code status was determined by: Patient 01/03/2016 1:04 PM Full Code 12/28/2015 8:50 AM This code status was determined by: Patient 10/01/2015 4:50 PM Full Code 09/30/2015 5:06 AM This code status was determined by: Patient 11/08/2014 7:55 PM Full Code 11/02/2014 10:11 PM This code status was determined by: Patient 06/16/2014 6:24 PM Full Code 06/16/2014 7:54 AM This code status was determined by: Patient
[2019-02-24] MEDS ORDERED: ALBUTEROL/IPRATROPIUM 3 ML NEB NEB ONE (14:00)
[2019-02-24] MEDS ORDERED: ALBUTEROL/IPRATROPIUM 3 ML NEB ONE (14:22)
--- NOTE | 2019-02-24 14:32 | Diagnostic Imaging Report ---
Examination: Single AP view of the chest. COMPARISON: None. INDICATION: Chest pain shortness of breath DISCUSSION: The lungs are well-inflated and without focal consolidation, pleural effusion, or pneumothorax. Cardiomediastinal contour and pulmonary vasculature are within normal limits for portable, AP technique. No acute osseous abnormalities. IMPRESSION: 1. No acute cardiopulmonary abnormalities. Signed by: Dr. Jaspreet Landaverde M.D. on 02/24/2019 2:28 PM
--- NOTE | 2019-02-24 14:46 | NUR ---
DECLINED FLU TESTING. STATES, "I JUST JUST HAD A FLU TEST, AND IT WAS NEGATIVE." NOTIFIED.
--- OUTSIDE RECORDS SUMMARY | 2019-02-24 16:00 | XMS REPORT | Clinical Summary ---
Author Author DARIN [facility] Address Unknown Phone Unavailable Care Team Providers Care Earth Moving Technician Name Role Phone Aldo Enriquez MD PCP [...] Unstable angina (HCC); Coronary artery disease involving [place] coronary artery of [place] heart with angina pectoris (HCC); Essential hypertension; [...] / Lot Implanted Type Area Manufactur er [id number] 05/26/2020 [id number] / / [id number] Synergy Cardiovasc N/A: Heart [place] Implanted: Qty: 1 on 07/14/2018 by ulJason Izaguirre MD [id number] 04/04/2019 [id number] / / [id number] Device Clsr Angio-Seal Vip 6fr Cardiovasc Right: Groin ST DANI [id number] - [id number] ular MED:CARDIA Implanted: Qty: 1 on 07/14/2018 by Jason Escobedo MD 12/04/2015 [id number] / / [id number] Stent,Uret F/G Contour Injection Uro Stent Bilateral: [place] 6.0/28 - [id number] Ureter SCIENTIFIC Implanted: Qty: 1 on 03/23/2014 [...] ms QTC Calculatio n(Bazett) 455 ms R [place] 92 degrees T [place] 49 degrees Sinus bradycardi a Rightward axis [...] ms QTC Calculatio n(Bazett) 475 ms P [place] 51 degrees R [place] 31 degrees T [place] 28 degrees Normal sinus rhythm Normal ECG [...] included. WBC 5.8 3.5 - 10.5 K/L [facility] RBC 3.49 (L) 4.63 - 6.08 M/L [facility] Hemoglobin 11.1 (L) 13.7 - 17.5 GM/DL [facility] Hematocrit 32.1 (L) 40.1 - 51.0 % [facility] MCV 92.0 79.0 - 92.2 fL [facility] MCH 31.8 25.7 - 32.2 pg [facility] MCHC 34.6 32.3 - 36.5 GM/DL [facility] RDW 13.8 11.6 - 14.4 % [facility] Platelets 80 (L) 150 - 450 K/CU MM [facility] MPV 11.7 9.4 - 12.4 fL [facility] nRBC 0 0 - 0 /100 WBC [facility] Specimen Blood Performing Organization Address City/State/Zipcode Phone Number [facility] [address] [place] [address] MEDICAL [facility]ENTER * Basic Metabolic Panel (07/15/2018 5:25 AM CDT) Only the most recent of 5 results within the time period is included. Sodium 142 136 - 145 meq/L [facility] Potassium 3.9 3.5 - 5.1 meq/L [facility] Chloride 111 (H) 98 - 107 meq/L [facility] CO2 22 22 - 29 meq/L [facility] BUN 16 7 - 21 mg/dL [facility] Creatinine 1.34 (H) 0.57 - 1.25 mg/dL [facility] Glucose 94 70 - 105 mg/dL [facility] Calcium 8.6 8.4 - 10.2 mg/dL [facility] EGFR 54Comment: ESTIMATED GFR IS mL/min/1.73 sq m [facility] NOT ACCURATE CREATININE [facility] CLEARANCE IN PREDICTING GLOMERULAR FILTRATION RATE. ESTIMATED GFR IS NOT APPLICABLE FOR DIALYSIS PATIENTS. Specimen Blood Performing Organization Address City/[facility] Phone Number [place] [phone] * POC ACTIVATED CLOTTING TIME (07/14/2018 6:28 PM CDT) Only the most recent of 3 results within the time period is included. Activated Clotting Time 268Comment: [facility] sec [address] Specimen Blood Performing Organization Address [facility] Centercode Phone Number [place] [phone] [place] [address] * Phosphorus (07/14/2018 4:22 AM CDT) Only the most recent of 3 results within the time period is included. Phosphorus 3.6 2.3 - 4.7 mg/dL [facility] Specimen Blood Performing Organization Address City/[facility] [place] [address] [phone] [place] [address] * Magnesium (07/14/2018 4:22 AM CDT) Only the most recent of 4 results within the time period is included. Magnesium 2.0 1.6 - 2.6 mg/dL [facility] Specimen Blood Performing Organization Address City/State/Zipcode Phone Number [facility] [address] [place] [address] MEDICAL CENTER * NM myocardial perfusion PET (rest and stress) (07/13/2018 8:45 AM CDT) Specimen Narrative Performed At FINAL REPORT [employer] PROCEDURE:Rest/Stress MYOCARDIAL PERFUSION PET with regadenoson\XA9\ CPT CODE:81940 INDICATION:Chest pain HISTORY:Cardiac risk factors: The diabetes, hypertension, hyperlipidemia, CKD. Other cardiovascular history: CAD, VA, PCI, CHF. Recent cardiac symptoms: Chest pain. [...] Extracardiac tracer distribution is normal.6. No previous [facility] study for comparison. Signed: Yuri Chan MD Report Verified Date/Time:07/13/2018 15:25:45 Reading Location: [address] [id number] [facility] Reading Room Procedure Note Interface, External Ris In - 07/13/2018 3:27 PM CDT FINAL REPORT PROCEDURE: Rest/Stress MYOCARDIAL PERFUSION PET with regadenoson\XA9\ CPT CODE: [id number] INDICATION: Chest pain HISTORY: Cardiac risk factors: The diabetes, hypertension, hyperlipidemia, CKD. Other cardiovascular history: CAD, VA, PCI, CHF. Recent cardiac symptoms: Chest pain. [...] tracer distribution is normal. 6. No previous [facility] study for comparison. Signed: Yuri Chan MD Report Verified Date/Time: 07/13/2018 15:25:45 Reading Location: [address] Reading Room Performing Organization Address City/State/Zipcode [...] AM Confirmed by MD ROWELL JOSEPH P ([id number]) on 08/07/2018 6:08:09 AM Procedure Note Interface, [...] Labetolol NORVASC Confirmed by fellow Allan Payne ([id number]) on 07/13/2018 9:04:12 AM Confirmed by MD ROWELL JOSEPH P ([id number]) on 08/07/2018 6:08:09 AM Performing Organization Address City/State/Zipcode Phone Number [employer] MUSE * ECG 12 lead (07/13/2018 8:25 AM CDT) Only the most recent of 3 results within the time period is included. Specimen Narrative Performed At Ventricular Rate 57 BPM [facility] Atrial Rate 57 BPM QRS Duration 86 ms Q-T Interval 468 ms QTC Calculation(Bazett) 455 ms R [place] 92 degrees T [place] 49 degrees Sinus bradycardia Rightward axis Borderline ECG Confirmed by MD NORMAN, IHAB ([id number]) on 07/13/2018 1:43:20 PM Procedure Note Interface, External Ris In - 07/13/2018 1:43 PM CDT Ventricular Rate 57 BPM Atrial Rate 57 BPM QRS Duration 86 ms Q-T Interval 468 ms QTC Calculation(Bazett) 455 ms R [place] 92 degrees T [place] 49 degrees Sinus bradycardia Rightward axis Borderline ECG Confirmed by MD NORMAN, IHAB ([id number]) on 07/13/2018 1:43:20 PM Performing Organization Address City/[facility] Phone Number [facility] * Lipid panel (07/12/2018 5:07 AM CDT) Triglycerides 159 mg/dL [facility] Cholesterol 111 mg/dL [facility] HDL 30 mg/dL [facility] LDL Calculated 49 mg/dL [facility] Specimen Blood Narrative Performed At Triglyceride Reference Range: [facility] Low Risk <150 [facility] [id number] High Risk 200-499 Very High Risk>=500 Cholesterol Reference Range: Low Risk <200 [id number] High Risk>240 HDL Cholesterol Reference Range: Low Risk >=60 High Risk <40 LDL Cholesterol Reference Range: Optimal<100 Near [id number] [id number] [id number] Very High >=190 Performing Organization Address City/State/Zipcode Phone Number [place] [phone] [place] [address] MEDICAL CENTER * Troponin I (07/11/2018 2:04 PM CDT) Only the most recent of 3 results within the time period is included. Troponin I 0.07 (H) 0.00 - 0.03 ng/mL [facility] Specimen Blood Narrative Performed At Troponin I (TnI) levels must be interpreted in the context of the presenting [facility] symptoms and the clinical findings. Elevated TnI levels indicate myocardial [facility] damage, but are not specific for ischemic heart disease. Elevated TnI levels are seen in patients with other cardiac conditions (including myocarditis and congestive heart failure), and slight TnI elevations occur in patients with other conditions, including sepsis, renal failure, acidosis, acute neurological disease, and persistent tachyarrhythmia. Performing Organization Address City/State/Zipcode Phone Number [facility] [address] [place] [address] [facility] * ED ECG Interpretation (07/11/2018 8:30 AM CDT) Narrative Performed At Tim Grady MD 07/11/20188:30 AM ECG/EKG Interpretation Date/Time: 07/10/2018 11:45 PM Performed by: TIM GRADY Authorized by: TIM GRADY The ECG was interpreted by ED physician. This ECG was compared with previous ECG(s).Rate is normal rate. Heart rate is 73 BPM. Conduction: conduction normal. ST segments normal. T waves normal. [place] is normal. Other findings: no other findings. Clinical Impression: normal ECGECG reviewed and does not meet STEMI criteria. * XR chest 1 view portable / bedside (07/11/2018 12:41 AM CDT) Specimen Narrative Performed At FINAL REPORT [facility] Chest, 1 view. History: Chest pain Comparison: Chest, 02/17/2018.. Findings: The cardiomediastinal silhouette and pulmonary vasculature are within normal limits for a portable exam. The lungs are clear without evidence of consolidation or effusion.The soft tissues and osseous structures are intact. IMPRESSION: No acute cardiopulmonary abnormality. Signed: Cally Moon MD Report Verified Date/Time:07/11/2018 01:02:58 Reading Location: [facility] C0[facility] Transitional Reading Room Procedure Note Interface, External [...] Report Verified Date/Time: 07/11/2018 01:02:58 Reading Location: [address] Transitional Reading Room Performing Organization Address City/[facility]/Zipcode Phone Number GE RIS * PT/PTT (07/10/2018 11:59 PM CDT) Protime 14.3 11.7 - 14.7 seconds [facility] INR 1.1 <=5.9 [facility] PTT 34.2 22.5 - 36.0 seconds [facility] Specimen Blood Narrative Performed At RECOMMENDED COUMADIN/WARFARIN INR THERAPY RANGES [facility] STANDARD DOSE: 2.0 - 3.0 Includes: PROPHYLAXIS for venous thrombosis, [facility] systemic embolization; TREATMENT for venous thrombosis and/or pulmonary embolus. HIGH RISK: Target INR is 2.5-3.5 for patients with mechanical heart valves. Performing Organization Address [facility] Centercode Phone Number [place] [phone] [place] [address] MEDICAL CENTER * CBC with platelet count + automated diff (07/10/2018 11:59 PM CDT) WBC 6.9 3.5 - 10.5 K/L [facility] RBC 3.82 (L) 4.63 - 6.08 M/L [facility] Hemoglobin 12.2 (L) 13.7 - 17.5 GM/DL [facility] Hematocrit 34.8 (L) 40.1 - 51.0 % [facility] MCV 91.1 79.0 - 92.2 fL [facility] MCH 31.9 25.7 - 32.2 pg [facility] MCHC 35.1 32.3 - 36.5 GM/DL [facility] RDW 13.4 11.6 - 14.4 % [facility] Platelets 87 (L) 150 - 450 K/CU MM [facility] MPV 11.2 9.4 - 12.4 fL [facility] nRBC 0 0 - 0 /100 WBC [facility] % Neutros 63 % [facility] % Lymphs 17 % [facility] % Monos 16 % [facility] % Eos 3 % [facility] % Baso 1 % [facility] # Neutros 4.31 1.78 - 5.38 K/L [facility] # Lymphs 1.15 (L) 1.32 - 3.57 K/L [facility] # Monos 1.12 (H) 0.30 - 0.82 K/L [facility] # Eos 0.21 0.04 - 0.54 K/L [facility] # Baso 0.04 0.01 - 0.08 K/L [facility] Immature 0 0 - 1 % [facility] Granulocytes-[facility] Specimen Blood Performing Organization Address City/State/Zipcode Phone Number [facility] [address] [place] [address] [facility] * B-type Natriuretic Factor (BNP) (07/10/2018 11:59 PM CDT) BNP 92 0 - 100 pg/mL [facility] Specimen Blood Performing Organization Address City/State/Zipcode Phone Number [facility] [address] [place] [address] MEDICAL CENTER after 02/23/2018 Insurance Payer Benefit Subscriber ID Type Phone Address Plan / Group AETNA - MGD CARE AETNA HMO xxxxxxxxxx HMO/POS POS QPOS Advance Directives For more information, please contact: [address] [phone] Date Inactivated Comments Code Status Date Activated [...]
--- NOTE | 2019-02-24 16:01 | NUR ---
CALLED [facility] FOR TRANSPORT
[2019-02-24] MEDS ORDERED: ASPIRIN 81 MG CHEW TAB PO ONE (16:45)
--- NOTE | 2019-02-24 17:15 | NUR ---
received pt via stretcher from free standing ER. no c/o pain or SOB. AAOx4. left FA 20gauge SL. oriented to room and use of call light, call light placed within reach. states girlfriend will bring med list.
[2019-02-24 17:29] VITALS: BP 134/69
[2019-02-24] MEDS ORDERED: ALBUTEROL/IPRATROPIUM 3 ML NEB NEB PRN (17:45)
[2019-02-24] MEDS ORDERED: ACETAMINOPHEN 325 MG TAB PO PRN (17:45)
[2019-02-24] MEDS ORDERED: HYDROCODONE/APAP 5MG-325MG TAB PO PRN (18:00)
[2019-02-24] MEDS ORDERED: DEXTROSE 50% SYRINGE 50 ML IV PRN (18:00)
[2019-02-24] MEDS ORDERED: ONDANSETRON HCL INJ 2MG/ML 2ML 2 MG/ML VIAL IV PRN (18:00)
[2019-02-24 18:24] VITALS: BP 134/69
[2019-02-24 18:32] VITALS: BP 134/69
[2019-02-24 19:01] LABS: CREATINE KINASE MB 1.5 ng/mL (0-5.0)
[2019-02-24 20:00] VITALS: BP 174/78
[2019-02-24] MEDS: INSULIN REGULAR, HUMAN 100 UNIT/1 ML 3ML VIAL SQ SCH (20:35)
--- NOTE | 2019-02-24 20:35 | NUR ---
Patient refused to have finger stick to check his blood sugar
--- NOTE | 2019-02-24 20:39 | Diagnostic Imaging Report ---
Perfusion/Aerosol Lung Study Clinical Information: Shortness of breath Comparison: Chest radiograph 02/24/2019 Discussion: Ventilation images of the lungs were obtained in multiple projections following administration of 40 mCi of Tc-99m DTPA via nebulization. Distribution of tracer activity appears physiologic throughout the lungs. No segmental ventilatory defects are identified. Perfusion images of the lungs in multiple projections were obtained following intravenous administration of 7.5 mCi of Tc-99m MAA. Distribution of tracer activity appears physiologic throughout the lungs. There are no segmental perfusion defects of any size. The perfusion images are well matched to the aerosol images. The cardiac silhouette is unremarkable. Impression: Normal ventilation perfusion lung scan. Scan findings represent a VERY LOW probability for acute pulmonary embolic disease based on the PIOPED II criteria. Signed by: Dr. Geneva Castro M.D. on 02/24/2019 8:36 PM
[2019-02-24] MEDS ORDERED: ENOXAPARIN SODIUM INJ 100 MG/ML SYR SC SCH (21:00)
[2019-02-24] MEDS ORDERED: METHYLPREDNISOLONE SOD SUCC 125 MG/2ML VIAL IV ONE (22:30)
[2019-02-24] MEDS ORDERED: FUROSEMIDE INJ 10 MG/ML 2 ML VIAL IV ONE (22:30)
--- NOTE | 2019-02-24 23:45 | NUR ---
Continuity of care received. Rounded on pt and pt resting in bed and in no apparent distress. All safety measures ensured, bed alarm on, and pt call guzman near.
[2019-02-25] VITALS: BP 155/70
--- NOTE | 2019-02-25 02:51 | Consultation ---
DATE OF CONSULTATION: 02/24/2019 Pulmonary Medicine Consult REASON FOR REFERRAL: Shortness of breath. HISTORY OF PRESENT ILLNESS: Mr. Osei is a pleasant 58-year-old gentleman with shortness of breath. The patient began with a cold about six days ago. The patient with subjective fevers. He has had some airways congestion. He went to his doctor and was given Levaquin as well as diagnosed with urinary tract infection. He remains on his baseline Lasix 40 mg per day. Due to the presence of unrelenting and worsening, he comes to the hospital for evaluation and I am consulted. BNP level is high. Chest x-ray with vascular hyperemia. The patient normally on Lasix 40 mg a day for what he calls diastolic heart failure, but since he has had recent stents last in 2013, he has not had any heart failure problems. The patient normally at baseline has unlimited exercise tolerance. However, now he just goes to the restroom, he is extremely short of breath. The patient with obstructive sleep apnea on CPAP at ? 11 cm for two years, no asthma, no allergies. He does have GERD that is resolved when on famotidine. PAST MEDICAL HISTORY: 1. Gout, coronary artery disease, status post DC, status post three stents, last in 2013. 2. History of diabetes. 3. Hypertension. 4. Hyperlipidemia. MEDICATIONS: Medication list reviewed per the chart record. ALLERGIES: NO KNOWN DRUG ALLERGIES. SOCIAL HISTORY: No alcohol. No drugs. Denies smoking now. Smoked ages [age], 2ppd. FAMILY HISTORY: Noncontributory to this condition. REVIEW OF SYSTEMS: GENERAL: No weight changes. OPHTHALMOLOGIC: No double vision. ENT: No mouth ulcers. ENDOCRINE: No known thyroid disease. PULMONARY: No hemoptysis. CARDIAC: No recent arrhythmias. GI: There is no bleeding. : No dysuria. DERMATOLOGIC: No rashes. NEUROLOGIC: No seizures. PSYCHIATRIC: No depression. MUSCULOSKELETAL: There is mild arthritis. OBJECTIVE: VITAL SIGNS: Currently afebrile, vital signs noted and reviewed per the chart record. GENERAL: In no acute distress, alert and calm, while in bed. HEENT: Normocephalic and atraumatic. NECK: Supple. Throat midline. LUNGS: Bilateral air entry, limited breath sounds, limited air entry. CARDIOVASCULAR: S1, S2. No murmurs, rubs, or gallops. ABDOMEN: Soft and nontender. EXTREMITIES: No clubbing, no cyanosis, there is only trace edema. INTEGUMENT: No rash or purpura. LABORATORY DATA: Labs reviewed per the chart record. Internal labs are pending. IMPRESSION AND PLAN: 1. Severe shortness of breath, multifactorial and under evaluation. 2. Radiographic venous hyperemia, treat as bronchitis exacerbation. 3. Venous hyperemia treat for diastolic congestive heart failure exacerbation. 4. Known coronary artery disease, status post myocardial infarction and three stents. 5. History of diabetes. 6. Hypertension. 7. Hyperlipidemia. 8. History of gout. 9. Obesity. 10. Obstructive sleep apnea. 11. former smoker We will give a dose of steroids or two. Bronchodilators. We will also give diuretics. The patient, if he does not improve, we need to see if he has features that suggest bronchitis as the underlying problem or we need to think about his heart being causative to this condition. The patient will benefit for outpatient pulmonary function test. Sleep apnea treatment with CPAP. Furthermore, he deserves to have that GERD treatment to prevent more reflux. Thank you very much, Dr. Christiansen for this consult. Please feel free to call me with any questions. MD DYLAN Oneill/AGUS /[id number] MTDD
[2019-02-25 04:00] VITALS: BP 153/72
[2019-02-25 05:32] LABS: BASOPHILS % 0.4 % (0.0-1.0); EOSINOPHILS % 0.4 % (0.0-6.0); HEMATOCRIT 36.8 % (38.2-49.6); HEMOGLOBIN 12.2 g/dL (14.0-18.0); LYMPHOCYTES # (AUTO) 0.8 (1.0-3.2); LYMPHOCYTES % 10.4 % (18.0-39.1); MEAN CORPUSCULAR HEMOGLOBIN 31.4 pg (28-32); MEAN CORPUSCULAR HGB CONC 33.2 g/dL (31-35); MEAN CORPUSCULAR VOLUME 94.6 fL (81-99); MONOCYTES # (AUTO) 0.1 (0.2-0.8); MONOCYTES % 1.9 % (4.4-11.3); NEUTROPHILS # (AUTO) 6.4 (2.1-6.9); NEUTROPHILS % 85.2 % (38.7-80.0); PLATELET COUNT 162 x10e3/uL (140-360); RED BLOOD COUNT 3.89 x10e6/uL (4.3-5.7); RED CELL DISTRIBUTION WIDTH 12.8 % (11.7-14.4)
[2019-02-25 05:53] LABS: CREATINE KINASE MB 1.6 ng/mL (0-5.0)
--- NOTE | 2019-02-25 05:54 | Diagnostic Imaging Report ---
Examination: Single AP view of the chest. COMPARISON: None. INDICATION: Congestive heart failure DISCUSSION: Lines/tubes: None. Lungs: Pulmonary venous congestion Pleura: No pleural effusion or pneumothorax. Heart and mediastinum: Mild cardiomegaly. Bones and soft tissues: No acute bony abnormalities. IMPRESSION: 1. Mild cardiomegaly with pulmonary venous congestion Signed by: Dr. Jose Cuevas M.D. on 02/25/2019 5:51 AM
[2019-02-25 06:22] LABS: CHOL/HDL RATIO 3.5 (3.9-4.7)
--- NOTE | 2019-02-25 06:43 | NUR ---
Pt in bed playing his video games. Pt has no complaints and in no apparent distress. All safety measures ensured and pt call guzman near. Pt encouraged to use call guzman for assistance.
[2019-02-25 06:55] LABS: ALBUMIN 3.8 g/dL (3.5-5.0); ALBUMIN/GLOBULIN RATIO 1.1 (0.8-2.0); ANION GAP 19.2 mmol/L (8-16); CALCIUM 9.2 mg/dL (8.4-10.2); CREATININE, SERUM 2.07 mg/dL (0.72-1.25); POTASSIUM 4.2 mmol/L (3.5-5.1)
[2019-02-25] MEDS: INSULIN REGULAR, HUMAN 100 UNIT/1 ML 3ML VIAL SQ SCH ×2 (07:30→11:30)
[2019-02-25] MEDS ORDERED: HYDROCODONE/APAP 5MG-325MG TAB PO PRN (08:00)
[2019-02-25 08:03] VITALS: BP 147/76
[2019-02-25 08:50] VITALS: BP 147/76
[2019-02-25] MEDS ORDERED: HYDRALAZINE HCL50 MG (08:53)
[2019-02-25] MEDS ORDERED: FUROSEMIDE40 MG (08:53)
[2019-02-25] MEDS ORDERED: LEVOFLOXACIN500 MG (08:53)
[2019-02-25] MEDS ORDERED: ATORVASTATIN CA80 MG (08:53)
[2019-02-25] MEDS ORDERED: CLOPIDOGREL75 MG (08:53)
[2019-02-25] MEDS ORDERED: CARVEDILOL25 MG (08:53)
[2019-02-25] MEDS ORDERED: PREDNISONE5 MG (08:53)
[2019-02-25] MEDS ORDERED: AMLODIPINE BESY10 MG (08:53)
[2019-02-25] MEDS ORDERED: GLIMEPIRIDE4 MG (08:53)
[2019-02-25] MEDS ORDERED: ATORVASTATIN CA20 MG PO (08:59)
[2019-02-25] MEDS ORDERED: CLOPIDOGREL75 MG PO (08:59)
[2019-02-25] MEDS ORDERED: LEVAQUIN500 MG PO (08:59)
[2019-02-25] MEDS ORDERED: GLIMEPIRIDE4 MG PO (08:59)
[2019-02-25] MEDS ORDERED: AMLODIPINE BESY10 MG PO (08:59)
[2019-02-25] MEDS ORDERED: HYDRALAZINE HCL25 MG PO (08:59)
[2019-02-25] MEDS ORDERED: PREDNISONE5 MG PO (08:59)
[2019-02-25] MEDS ORDERED: CARVEDILOL12.5 MG PO (08:59)
[2019-02-25] MEDS ORDERED: FUROSEMIDE40 MG PO (08:59)
[2019-02-25] MEDS ORDERED: FUROSEMIDE INJ 10 MG/ML 4 ML VIAL IV SCH (09:00)
[2019-02-25] MEDS ORDERED: FUROSEMIDE 40 MG TAB PO SCH (10:30)
[2019-02-25] MEDS ORDERED: PREDNISONE 5 MG TAB PO SCH (10:30)
[2019-02-25] MEDS ORDERED: AMLODIPINE BESYLATE 10 MG TAB PO SCH (10:30)
[2019-02-25] MEDS ORDERED: LEVOFLOXACIN 500 MG TAB PO SCH (10:30)
[2019-02-25] MEDS ORDERED: CARVEDILOL 12.5 MG TAB PO SCH (10:30)
[2019-02-25] MEDS ORDERED: CLOPIDOGREL BISULFATE 75 MG TAB PO SCH (10:30)
[2019-02-25 12:06] VITALS: BP 137/71
[2019-02-25] MEDS ORDERED: PREDNISONE20 MG PO (12:26)
[2019-02-25] MEDS ORDERED: PROAIR HFA INH8.5 GM IH (12:26)
--- NOTE | 2019-02-25 12:36 | NUR ---
girlfriend came to nurses station to report patient leaving and stating he will call an "uber." patient found in front lobby sitting down with all personal belongings. explained to patient of this nurse obtaining d/c home order at this time and will take approx. 10mins to remove PIV, review d/c instructions with him and he will receive RX, patient refused to wait and states "I'm not waiting any longer." patient pulled out PIV from left arm with tip intact. he removed telemetry box, stood up while gathering his belongings and when this nurse asked him to sign AMA form if unwilling to await d/c instructions and RX he refused and states "I'm not signing anything." walked out the front lobby entrance with girlfriend following. in facility notified. air cargo specialist supervisor notified.
[2019-02-25] MEDS ORDERED: FUROSEMIDE INJ 10 MG/ML 4 ML VIAL IV NR (13:30)
[2019-02-25] MEDS ORDERED: HYDRALAZINE HCL 25 MG TAB PO SCH (15:00)
--- NOTE | 2019-02-25 16:45 | History and Physical ---
CHIEF COMPLAINT: Shortness of breath. HISTORY OF PRESENT ILLNESS: This is a 58-year-old male morbidly obese with history of hypertension, hyperlipidemia, type 2 diabetes, who comes into the ED with complaints of shortness of breath, chest pain ongoing since early yesterday morning on the day of arrival to the ED. The patient reports that earlier in the week, he was complaining of some dysuria and fever. At that time, he was evaluated by his [facility] physician, had a significant workup, found to have urinary tract infection and was given some oral Levaquin for underlying UTI. Since then, the patient was doing well. He reports that his fever improved and his dysuria improved, but of note yesterday, he noticed that he was very short of breath upon ambulation. He denies any chest pain or any palpitations. He reports that fever has ceased. No abdominal pain, cough or congestion. The patient was seen and evaluated at bedside on the medical floor. Currently, he is doing well with no other complaints at this time. The patient was seen at the outside ER, sent here to get a V/Q scan due to underlying CKD, found to be negative. REVIEW OF SYSTEMS: Pertinent positives: Shortness of breath on exertion. Pertinent negatives: Denies any chest pain, palpitation, nausea, vomiting, diarrhea, dysuria, hematuria, frequency, urgency, lightheadedness, dizziness, abdominal pain, headaches, cough, congestion, fever, or any other complaints. The rest of 14-point review of systems has been reviewed with the patient and are negative. ALLERGIES: NO KNOWN DRUG ALLERGIES. HOME MEDICATIONS: Amlodipine 10 mg daily, Lipitor 80 mg a day. Coreg 25 mg p.o. b.i.d., Plavix 75 mg daily, furosemide 40 mg daily, hydralazine 50 mg p.o. t.i.d., Levaquin 500 mg daily, prednisone 5 mg daily, glimepiride 4 mg daily. PAST MEDICAL HISTORY: Type 2 diabetes, hypertension, history of CAD, hyperlipidemia. PAST SURGICAL HISTORY: Reports none. FAMILY HISTORY: Hypertension, diabetes. SOCIAL HISTORY: No drugs. No alcohol. Was a former smoker. Currently nonsmoker and history of COPD. PHYSICAL EXAMINATION: VITAL SIGNS: Temperature is 97.4, pulse 68, respiratory rate is 20, blood pressure 147/76, pulse ox 100% on room air. GENERAL: Not in acute distress. Alert and oriented x3. Cooperative on examination. HEENT: Head is normocephalic and atraumatic. Eyes; pupils are equal, round, and reactive to light bilaterally. Extraocular movements are intact bilaterally. Throat, no evidence of any erythema or exudates in the posterior pharynx. Has poor dentition. NECK: Supple. Good range of motion. PULMONARY: Clear to auscultation bilaterally. No wheezing, no rales, no rhonchi, no crackles appreciated. PULMONARY: Clear to auscultation bilaterally. No wheezing, no rales, no rhonchi, no crackles appreciated. CARDIOVASCULAR: Positive S1, S2. No murmurs, rubs, or gallops. ABDOMEN: Soft, nondistended, and nontender to palpation. Bowel sounds present. MUSCULOSKELETAL: Strength is 5/5 throughout. No evidence of any muscle deficits on examination. No weakness appreciated. NEUROLOGICAL: Cranial nerves II through XII grossly intact. No evidence of any neurological deficits on exam. SKIN: Intact. Warm to touch. Good cap refill. PSYCHIATRIC: Normal affect and mood. EXTREMITIES: No edema. Good range of motion throughout. LAB FINDINGS: Show white count 7.4, hemoglobin 12.2, hematocrit is 36.8, platelets of 162. Chemistry; sodium 138, potassium 4.3, chloride 103, bicarb 20, anion gap of 19, BUN 35, creatinine is 2, glucose 155, , magnesium 2.1. Troponins were negative x2. LDL was 80. Albumin 3.8. MICROBIOLOGY: None. IMAGING STUDIES: V/Q scan was normal V/Q scan. Very low probability. Chest x-ray found to be negative. Repeat chest x-ray this morning shows some mild pulmonary venous congestion. IMPRESSION: 1. Acute shortness of breath, likely secondary to acute bronchitis with negative V/Q scan. 2. Recent urinary tract infection, on oral Levaquin. 3. Morbidly obese. 4. Type 2 diabetes. 5. Hypertension. 6. History of chronic obstructive pulmonary disease, on inhalers and steroids. PLAN: At this time, his shortness of breath seemed to have resolved. He has no wheezing on examination. Imaging studies showed negative V/Q scan. Chest x-ray was found to show mild pulmonary congestion. Pulmonary was consulted. The patient is already on steroids at home, which we will continue as well as neb treatments. Awaiting on a 2D echo for today. The patient already is on Levaquin as an outpatient for UTI, so in the event he does have underlying acute bronchitis, the Levaquin will take care of this issue. We are going to go ahead and resume here as well. He has 10 days worth of Levaquin, so there is no need for any more prescriptions. He is currently doing well with no other complaints. Resume same home medications. Await final recommendations from Pulmonary as well as echo for discharge home later today. The patient is otherwise doing well, doing great with no complaints. He seems very happy to be discharged home today. I did get repeat labs for today as well. MD TIFFANIE Brink/AGUS /[id number]
[2019-02-25] MEDS ORDERED: ATORVASTATIN 20 MG TAB PO SCH (21:00)
[2019-02-25] MEDS ORDERED: ATORVASTATIN 40 MG TAB PO SCH (21:00)
--- NOTE | 2019-02-26 00:31 | Progress Note ---
DATE: 02/25/2019 Pulmonary Medicine Progress Note SUBJECTIVE: Mr. Mendosa was seen and examined at bedside. The patient continues to have some improvement. He responded to combination of diuretics as well as medicines for airway disease. Today's oxygen saturation is 100% on room air FiO2 he says. Chest x-ray continues to show mild vascular congestion with left lower lobe atelectasis versus pneumonia. The patient does cite ability to move around independently. REVIEW OF SYSTEMS: No bleeding, no chest pain. OBJECTIVE: VITAL SIGNS: Afebrile, vital signs noted reviewed per the chart record. GENERAL: In no acute distress. Alert and calm. HEENT: Normocephalic, atraumatic. NECK: Supple. Throat midline. LUNGS: Bilateral air entry, mild rhonchi. CARDIOVASCULAR: S1, S2. No murmurs, rubs, or gallops. ABDOMEN: Soft, nontender. EXTREMITIES: No clubbing. No cyanosis. There is trace edema. INTEGUMENT: No rash or purpura. LABORATORY DATA: BUN 35, creatinine 2.1, 4.2 potassium, 20 bicarbonate, 8 white count, 37 hematocrit and 162 platelets. IMPRESSION AND PLAN: 1. Dyspnea, multifactorial. 2. Fluid overload, likely exacerbated by diastolic dysfunction plus chronic kidney disease. 3. Treat as bronchitis exacerbation, acute. Possible chronic obstructive pulmonary disease. 4. Obstructive sleep apnea. 5. Former smoker. Additional diuretic dose is recommended. The patient was given a dose of steroids yesterday and is recommended for further bronchodilators. Mobilization is important. Continue BiPAP during sleep. Continue to avoid nephrotoxic agents. For now, the patient is close to discharge soon and discussed with primary adult care provider regarding discharge planning if he continues to improve. I have left scripts in the chart. I then called in to follow as an outpatient. MD DYLAN Oneill/AGUS /[id number]
[2019-02-26] MEDS ORDERED: PANTOPRAZOLE SOD 40 MG TABEC PO SCH (08:15)
--- NOTE | 2019-02-27 03:13 | Discharge Summary ---
FINAL DISCHARGE DIAGNOSES: 1. He left against medical advice. 2. Acute bronchitis with negative V/Q scan. 3. Urinary tract infection on oral Levaquin as an outpatient. 4. Morbid obesity. 5. Type 2 diabetes. 6. Hypertension. 7. History of chronic obstructive pulmonary disease. CONSULTANTS: Pulmonary. PHYSICAL EXAMINATION: VITAL SIGNS: Temperature 97.1, pulse 66, respiratory rate is 18, blood pressure 137/71, and pulse ox 98% on room air. LAB FINDINGS: Show white count 7.4, hemoglobin 12, hematocrit is 37, and platelets are low at 162. Chemistry; sodium 138, potassium creatinine is 2, glucose 155, calcium 9.2. LFTs were normal. Troponins were negative. LDL was 80. MICROBIOLOGY: None. IMAGING STUDIES: V/Q scan showed very low probability for acute pulmonary embolism. Otherwise normal V/Q scan. Chest x-ray shows some mild pulmonary congestion. HOSPITAL COURSE: This is a 58-year-old male, came into the ED with complaints of shortness of breath that began one day prior to arrival to the hospital. The patient reports he was recently diagnosed with urinary tract infection by his PCP and was given Levaquin earlier in the week. Since then, he was sitting much throughout. He is doing well up until the day before admission. He complains of shortness of breath. The patient was admitted and Pulmonary was consulted. V/Q scan was found to be negative for any pulmonary embolism. The patient was given some IV diuretics as well. He was started on IV antibiotics as well. The patient was cleared from Pulmonary to discharge home and scripts were written to give to the patient, but the patient left against medical advice. The patient signed appropriate documentation and left the hospital. MEDICATIONS: Left against medical advice. DISPOSITION: Left medical advice. The patient left against medical advice prior to being further evaluated and monitored. MD TIFFANIE Brink/AGUS /[id number]
== END 2019-02-25 12:36 | disposition left against medical advice (07) ==
LOC: FSED 13:40 → ERHOLD 15:52 → IMCU 17:15
PROVIDERS: ADMIT Internal Medicine; ATTEND Internal Medicine
DX: I13.0 Hypertensive heart and chronic kidney disease with heart failure and stage 1 through stage 4 chronic kidney disease, or unspecified chronic kidney disease (principal); J20.9 Acute bronchitis, unspecified; N39.0 Urinary tract infection, site not specified; E66.01 Morbid (severe) obesity due to excess calories; Z68.41 Body mass index [BMI] 40.0-44.9, adult; M10.9 Gout, unspecified; I25.10 Atherosclerotic heart disease of native coronary artery without angina pectoris; Z95.5 Presence of coronary angioplasty implant and graft; I25.2 Old myocardial infarction; Z87.891 Personal history of nicotine dependence; I50.31 Acute diastolic (congestive) heart failure; G47.33 Obstructive sleep apnea (adult) (pediatric); E11.22 Type 2 diabetes mellitus with diabetic chronic kidney disease; N18.9 Chronic kidney disease, unspecified
CPT/HCPCS: 36415 ×2; 71045 ×2; 78582; 80053 ×2; 80061; 82550 ×2; 82553 ×2; 83735; 83880; 84484 ×2; 85025 ×2; 85379; 85610; 93005; 93306; 99284; G0378 ×2; J1650; J1817; J1940 ×2; J2930; J7512; S0164

== ENCOUNTER 2020-05-14 11:17 | Emergency (ER) | payer OTHER ==
[~2020-05-14] VITALS: Ht 177.8 cm; Wt 129.0 kg
[~2020-05-14 11:17] MED LIST: AMLODIPINE BESY10 MG; AMLODIPINE BESY10 MG PO; ATORVASTATIN CA20 MG PO; ATORVASTATIN CA80 MG; CARVEDILOL12.5 MG PO; CARVEDILOL25 MG; CLOPIDOGREL75 MG; CLOPIDOGREL75 MG PO; FUROSEMIDE40 MG; FUROSEMIDE40 MG PO; GLIMEPIRIDE4 MG; GLIMEPIRIDE4 MG PO; HYDRALAZINE HCL25 MG PO; HYDRALAZINE HCL50 MG; LEVAQUIN500 MG PO; LEVOFLOXACIN500 MG; PREDNISONE20 MG PO; PREDNISONE5 MG; PREDNISONE5 MG PO; PROAIR HFA INH8.5 GM IH
--- NOTE | 2020-05-14 11:36 | Emergency Department Note ---
History of Present Illnes History of Present Illness Chief Complaint: Chest Pain History of Present Illness This is a 60 year old male hx of CAD, gout, htn c/o chest pain twice this am, similar to his RI in the past. He has had 5 stents placed before. Historian: Patient Arrival Mode: Car Supervisor Education Required: No Onset (how long ago): hour(s) Radiation: Reports neck Severity: moderate Onset quality: gradual Duration (how long): hour(s) Progression: waxing and waning Chronicity: recurrent Relieving factors: none Exacerbating factors: none Associated symptoms: Reports other Treatments prior to arrival: aspirin Past Medical/Family History Physician Review I have reviewed the patient's past medical and family history. Any updates have been documented here. Past Medical History Past Medical History: Hypertension, Diabetes, Kidney Stones, Chronic Kidney Disease Other Medical History: CHRONIC GOUT (GETS IV INFUSIONS Q 2 WKS FOR TREATMENT) Past Surgical History: PCI Other Surgery: cardiac stent placement x 5 Social History Smoking Cessation: Never Smoker Alcohol Use: Social Any Illegal Drug Use: No TB Exposure/Symptoms: No Physically hurt or threatened: No Other Any Pre-Existing Lines (PICC,: No Review of Systems Review of Systems Constitutional: Reports no symptoms EENTM: Reports no symptoms Cardiovascular: Reports as per HPI Respiratory: Reports no symptoms Gastrointestinal: Reports no symptoms Genitourinary: Reports no symptoms Musculoskeletal: Reports no symptoms Integumentary: Reports no symptoms Neurological: Reports no symptoms Psychological: Reports no symptoms Endocrine: Reports no symptoms Hematological/Lymphatic: Reports no symptoms Physical Exam Related Data Allergies: Coded Allergies: No Known Allergies (Unverified , 02/24/19) Vital signs reviewed: Yes Physical Exam CONSTITUTIONAL Constitutional: Present well-developed, Present well-nourished HENT HENT: Present normocephalic, Present atraumatic, Present oropharynx clear/moist, Present nose normal HENT L/R: Present left ext ear normal, Present right ext ear normal EYES Eyes: Reports PERRL, Reports conjunctivae normal NECK Neck: Present ROM normal PULMONARY Pulmonary: Present effort normal, Present breath sounds normal CARDIOVASCULAR Cardiovascular: Present regular rhythm, Present heart sounds normal, Present capillary refill normal, Present normal rate GASTROINTESTINAL Abdominal: Present soft, Present nontender, Present bowel sounds normal GENITOURINARY Genitourinary: Present exam deferred SKIN Skin: Present warm, Present dry MUSCULOSKELETAL Musculoskeletal: Present ROM normal, Present deformity (gouty tophi elbows, knees) NEUROLOGICAL Neurological: Present alert, Present oriented x 3, Present no gross motor or sensory deficits PSYCHOLOGICAL Psychological: Present mood/affect normal, Present judgement normal Results Laboratory Lab results reviewed: Yes Imaging Imaging results reviewed: Yes Procedures 12 Lead ECG Interpretation ECG Interpretation : ECG: ECG 1 Supervisor Education: Interpreted by ED physician Date: May 14, 2020 Time: 11:24 Prior ECG tracings: reviewed Rhythm: sinus rhythm Rate: normal QRS axis: normal ST segments normal: Yes T waves flattening: III Clinical Impression: abnormal ECG Critical Care Time Total Critical Care Time (min): 45 Time ED Physician saw patient: 11:15 Critical care time exclusive o: treating other patients Critcal care necessary due to: other (Lovenox, nitro, ASA, statin, morphine) Critcal care time spent by me: develop tx plan w patient/surrogate, discussion w consultants, discussion w primary provider, evaluation patient response to tx, examination of patient, obtaining hx from patient/surrogate, order/perform tx or interventions, order/review laboratory studies, order/review radiographic studies, pulse oximetry, re-evaluation of patient condition Comments Critical care for unstable angina, treated with Lovenox, nitro, ASA, statin, morphine Clinical Decision Tools HEART Score Date Taken: May 14, 2020 HEART Score: HEART Score Response (Comments) Value History Highly suspicious 2 EKG Normal 0 Age 45 - 65 1 Risk factors 1 or 2 risk factors 1 Troponin < or = to normal limit Total 4 Assessment & Plan Medical Decision Making MDM ACS Reassessment Reassessment no chest pain now Assessment & Plan Final Impression: (1) Unstable angina Depart Disposition: ADMITTED Home Meds Active Scripts Albuterol Sulf* (PROAIR HFA INHALER*) 8.5 Gm Inh, 2 INH IH Q4HR PRN for SHORTNESS OF BREATH, #1 2 Refills Prov:COLE OAKLEY MD, ABIM 02/25/19 Reported Medications Olmesartan Medoxomil (BENICAR) 40 Mg Tablet, DAILY 05/14/20 Prednisone (PREDNISONE) 5 Mg Tablet, 5 MG PO DAILY 02/25/19 Hydralazine Hcl (HYDRALAZINE HCL) 25 Mg Tab, 50 MG PO TID, TAB 02/25/19 Glimepiride (GLIMEPIRIDE) 4 Mg Tablet, 4 MG PO DAILY 02/25/19 Furosemide (FUROSEMIDE) 40 Mg Tablet, 40 MG PO Daily, #30 TAB 02/25/19 Clopidogrel Bisulfate (CLOPIDOGREL) 75 Mg Tablet, 75 MG PO DAILY, #30 TAB 02/25/19 Carvedilol (CARVEDILOL) 12.5 Mg Tablet, 25 MG PO BID, #60 TAB 02/25/19 Atorvastatin Calcium (ATORVASTATIN CALCIUM) 20 Mg Tablet, 80 MG PO HS, #30 TAB 02/25/19 Amlodipine Besylate (AMLODIPINE BESYLATE) 10 Mg Tablet, 10 MG PO DAILY, #30 TAB 02/25/19 Discontinued Reported Medications Levofloxacin (LEVAQUIN) 500 Mg Tablet, 500 MG PO DAILY for 10 Days, TAB 02/25/19 Discontinued Scripts Prednisone (PREDNISONE) 20 Mg Tab, 20 MG PO DAILY, #5 0 Refills Prov:COLE OAKLEY MD, ABIM 02/25/19 Medications in the ED Lovenox, nitro, ASA, statin, morphine. Physician Attestation Provider Attestation case discussed with Dr Mcmanus, ROQUE Adrian MD May 14, 2020 11:36
[2020-05-14] MEDS ORDERED: ONDANSETRON HCL INJ 2MG/ML 2ML 2 MG/ML VIAL IV PRN ×2 (11:45→12:00)
[2020-05-14] MEDS ORDERED: ACETAMINOPHEN 325 MG TAB PO ONE (11:45)
[2020-05-14] MEDS ORDERED: NITROGLYCERIN 2% OINT 1 GM PKT TOP ONE (11:45)
[2020-05-14] MEDS ORDERED: ONDANSETRON HCL INJ 2MG/ML 2ML 2 MG/ML VIAL ONE (11:54)
[2020-05-14] MEDS ORDERED: ACETAMINOPHEN 325 MG TAB ONE (11:54)
[2020-05-14] MEDS ORDERED: NITROGLYCERIN 2% OINT 1 GM PKT ONE (11:55)
--- OUTSIDE RECORDS SUMMARY | 2020-05-14 11:58 | XMS REPORT | Summary of Care ---
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 Name Role Phone Aldo Enriquez MD PCP Reason for Referral * Radiology Services (Routine) Referred By Contact Referred To Contact Status Reason Specialty Diagnoses / Procedures Jason Estrada MD [address] [place] [address] Pending Cardiology Diagnoses Essential hypertension Coronary artery disease involving habematolel coronary artery of habematolel heart without angina pectoris P rocedures ECHO, COMPLETE Reason for Visit * Reason Comments Cardiology Follow-up Encounter Details Care Team Description Date Type Department Jason Estrada MD [address] [place] [address] Cardiology Follow-up 05/07/2019 Office Visit [facility] [address] [facility] [address] [place] [address] Allergies No Known Allergiesdocumented as of this encounter (statuses as of 05/07/2019) Medications End Date Status Medication Sig Dispensed Refills Start Date Active colchicine (COLCRYS) 0.6 Take 0.6 mg 0 MG tablet by mouth 3 times weekly. Active Cholecalciferol (VITAMIN Take 5,000 0 D OR) Units by mouth. Active Multiple Take by 0 Vitamins-Minerals mouth daily. (MULTIVITAL-M OR) Active famotidine (PEPCID) 20 MG Take 20 mg by 0 tablet mouth 2 times daily as needed for Other. Active aspirin 81 MG tablet Take 81 mg by 0 mouth daily. Active gabapentin (NEURONTIN) Take 300 mg 0 300 MG capsule by mouth 3 times daily. Active sodium chloride 0.9 % Inject 8 mg 0 SOLN 250 mL with into the vein pegloticase 8 MG/ML SOLN every 14 8 mg days. Active glimepiride (AMARYL) 4 MG Take 2 mg by 0 tablet mouth every morning. Active Linagliptin 5 MG TABS Take 5 mg by 0 mouth. Active predniSONE (DELTASONE) 5 Take 5 mg by 0 MG tablet mouth. Active tramadol (ULTRAM) 50 MG Take 50 mg by 0 tablet mouth. Active carvedilol (COREG) 25 MG Take 1 Tab by 180 Tab 3 tabletIndications: mouth two 8 Essential hypertension, times daily. Coronary artery disease involving habematolel coronary artery of habematolel heart without angina pectoris Active hydrALAZINE (APRESOLINE) Take 1 Tab by 270 Tab 3 50 MG tablet mouth 3 times 8 daily. Active clopidogrel (PLAVIX) 75 Take 1 Tab by 90 Tab 3 201 MG tablet mouth daily. 8 Active isosorbide mononitrate Take 1 Tab by 90 Tab 0 1 (IMDUR) 60 MG CR tablet mouth every 8 morning. Active amlodipine (NORVASC) 10 Take 1 Tab by 90 Tab 3 11/12/ MG tablet mouth daily. 9 Active furosemide (LASIX) 40 MG Take 1 Tab by 90 Tab 3 tablet mouth daily. 9 Active olmesartan (BENICAR) 40 Take 1 Tab by 90 Tab 3 MG tabletIndications: mouth daily. 9 Essential hypertension Active atorvastatin (LIPITOR) 80 Take 1 Tab by 90 Tab 1 MG tabletIndications: CKD mouth daily. 9 (chronic kidney disease) stage 3, GFR 30-59 ml/min, Essential hypertension, Hypercalcemia documented as of this encounter (statuses as of 05/07/2019) Active Problems Problem Noted Date Nephrolithiasis 12/23/2017 Hypercalcemia 04/14/2014 Hyperparathyroidism 04/14/2014 CAD (coronary artery disease) 04/11/2014 CRI (chronic renal insufficiency) 04/11/2014 HTN (hypertension) 04/11/2014 HLD (hyperlipidemia) 04/11/2014 documented as of this encounter (statuses as of 05/07/2019) Immunizations Name Administration Dates Next Due Influenza (whole) 06/29/2015 documented as of this encounter Social History Date Tobacco Use Types Packs/Day Years Used Never Smoker Smokeless Tobacco: Never Used Drinks/Week oz/Week Comments Alcohol Use Yes Sex Assigned at Date Recorded Not on file Industry Job Start Date Occupation Not on file Not on file Not on file Travel End Travel History Travel Start No recent travel history available. documented as of this encounter Last Filed Vital Signs Reading Time Taken Comments Vital Sign 134/73 05/07/2019 9:13 AM CDT Blood Pressure 52 05/07/2019 9:13 AM CDT Pulse - - Temperature 16 05/07/2019 9:13 AM CDT Respiratory Rate 96% 05/07/2019 9:13 AM CDT Oxygen Saturation - - Inhaled Oxygen Concentration 125.2 kg (276 lb) 05/07/2019 9:13 AM CDT Weight 182.9 cm (6') 05/07/2019 9:13 AM CDT Height 37.43 05/07/2019 9:13 AM CDT Body Mass Index documented in this encounter Progress Notes * Jason Estrada MD - 05/07/2019 9:40 AM CDT Chief Complaint Cardiology Follow-up History of Presenting Illness Deondre Osei is a 59 y.o. male with PMHX outlined including CAD s/p PCI to mid-L CX (Bare Metal Integrity 3.0 x 18mm stent) on 03/21/2014. He had staged PCI of mi d-RCA (Vision 3.0 x 15) and distal RCA (Vision 2.5 x 15mm) on 04/22/2014. Has und ergone parathyroidectomy for hypercalcemia resulting in CRI. He has been doing w ell. He has been compliant with his medications, no chest pain, did run out of h ydralazine a few weeks ago and felt short of breath. He has noticed skin itching and rash. He also is concerned about his anemia, hx of upper GI bleeding from an ulcer, had endoscopy at [facility]. Clinic Visit 05/07/19: Here for follow-up. Since last visit, he has been doing w ell. He had PCI to LAD done 07/14/18. No chest pain, doing overall better. No di zziness.Compliant with his medications. On CPAP for severe ERIC and feels a lot b gabi. Has minor bleeding due to hemorrhoids. He has no chest pain or shortness of breath with exertion. Review of Systems Review of Systems Constitution: Positive for weight loss. HENT: Negative. Eyes: Negative. Cardiovascular: Negative for chest pain, dyspnea on exertion and leg swelling. Respiratory: Negative. Gastrointestinal: Negative. Past Medical History Past Medical History: Diagnosis Date Arthritis Cardiomyopathy DM (diabetes mellitus) ED (erectile dysfunction) GERD (gastroesophageal reflux disease) Gout HTN (hypertension) Past Surgical History Past Surgical History: Procedure Laterality Date HX THYROID SURGERY Family History Family History Problem Relation Name Age of Onset Elevated Lipids Father Other (cad) Father Colon Cancer Mother Current Outpatient Medications Current Outpatient Medications Medication Sig Dispense Refill amlodipine (NORVASC) 10 MG tablet Take 1 Tab by mouth daily. 90 Tab 3 aspirin 81 MG tablet Take 81 mg by mouth daily. atorvastatin (LIPITOR) 80 MG tablet Take 1 Tab by mouth daily. 90 Tab 1 carvedilol (COREG) 25 MG tablet Take 1 Tab by mouth two times daily. 180 Tab 3 Cholecalciferol (VITAMIN D OR) Take 5,000 Units by mouth. clopidogrel (PLAVIX) 75 MG tablet Take 1 Tab by mouth daily. 90 Tab 3 colchicine (COLCRYS) 0.6 MG tablet Take 0.6 mg by mouth 3 times weekly. famotidine (PEPCID) 20 MG tablet Take 20 mg by mouth 2 times daily as needed for Other. furosemide (LASIX) 40 MG tablet Take 1 Tab by mouth daily. 90 Tab 3 gabapentin (NEURONTIN) 300 MG capsule Take 300 mg by mouth 3 times daily. glimepiride (AMARYL) 4 MG tablet Take 2 mg by mouth every morning. hydrALAZINE (APRESOLINE) 50 MG tablet Take 1 Tab by mouth 3 times daily. 270 Tab 3 isosorbide mononitrate (IMDUR) 60 MG CR tablet Take 1 Tab by mouth every mor chetna. 90 Tab 0 Linagliptin 5 MG TABS Take 5 mg by mouth. Multiple Vitamins-Minerals (MULTIVITAL-M OR) Take by mouth daily. olmesartan (BENICAR) 40 MG tablet Take 1 Tab by mouth daily. 90 Tab 3 predniSONE (DELTASONE) 5 MG tablet Take 5 mg by mouth. sodium chloride 0.9 % SOLN 250 mL with pegloticase 8 MG/ML SOLN 8 mg Inject 8 mg into the vein every 14 days. tramadol (ULTRAM) 50 MG tablet Take 50 mg by mouth. No current facility-administered medications for this visit. Allergies No Known Allergies Social History Social History Tobacco Use Smoking Status Never Smoker Smokeless Tobacco Never Used Social History Substance and Sexual Activity Alcohol Use Yes Social History Substance and Sexual Activity Drug Use Not on file Social History Substance and Sexual Activity Sexual Activity Not on file Physical Examination Vitals: Vital Signs Height: 6' (182.9 cm) Weight - Scale: 276 lb (125.2 kg) Pulse: 52 Respirations: 16 BP: 134/73 Physical Exam Constitutional: He appears healthy. No distress. HENT: Mouth/Throat: Oropharynx is clear. Eyes: Conjunctivae are normal. Neck: Thyroid normal. Neck supple. No JVD present. No neck adenopathy. Cardiovascular: Normal rate, regular rhythm, S1 normal and S2 normal. No extras ystoles are present. PMI is not displaced. Exam reveals no S3, no S4 and no decr eased pulses. No murmur heard. Pulmonary/Chest: Effort normal and breath sounds normal. He has no wheezes. He h as no rales. He exhibits no tenderness. Abdominal: Soft. There is no tenderness. Neurological: He is alert and oriented to person, place, and time. He has normal motor skills and intact cranial nerves. Gait normal. Skin: Skin is warm and dry. No jaundice or pallor. Laboratory Data Lab Results Component Value Date WBC 7.2 05/12/2014 HGB 11.7 (L) 06/13/2014 HCT 33.4 (L) 05/12/2014 MCV 85.0 05/12/2014 PLT 190 05/12/2014 Lab Results Component Value Date NA 145 12/23/2017 Lab Results Component Value Date K 4.3 12/23/2017 Lab Results Component Value Date BUN 22 (H) 12/23/2017 Lab Results Component Value Date CREATININE 1.57 (H) 12/23/2017 Lab Results Component Value Date ALT 9 10/20/2015 AST 13 10/20/2015 ALKPHOS 65 10/20/2015 BILITOT 0.7 10/20/2015 Lab Results Component Value Date CHOL 100 10/20/2015 LDLCALC 36 10/20/2015 TRIG 119 10/20/2015 No results found for: BNP 09/18/2016 Total Cholesterol 112 HDL 28 LDL 37 TG 237 CMP - normal Uric Acid 8.8 Recent Lipid Panel: MPI 09/2017 IMPRESSION: 1. Study performed per Hybrid protocol. Patient exercised on treadmill per the Protocol, completing a total of 07 minutes and 56 seconds. Max work load was 7 Mets. At 5 minutes into exercise, pharmacologic stress was performed by IV injection of Regadenoson ( Lexiscan) 0.4 mg over 10 seconds. Patient continued to exercise after injection of the Lexiscan. The heart rate was 60 at baseline and robert to 107 beats per minute during the hybrid protocol ( 66% of age predict ed max heart rate). Blood pressure was 131/77 mm Hg at baseline and 139/72 at p eak pharmacologic effect. The patient did not develop significant symptoms. 2. Small size, mild severity, reversible apical defect noted. Rest of the segmen ts show normal perfusion at rest and with stress. 3. LV is mildly dilated at stress and with rest. The post stress left ventricula r ejection fraction is 50 % with mild global hypokinesis. Interpreting Physician: Paola Rolon MD Op Note - Mike Stuart MD - 07/14/2018 6:51 PM CDT CARDIAC CATHETERIZATION LABORATORY Patient Information Name: Deondre Osei : 1960 (58 y.o. male) Setting Date: 07/14/2018 Sales Correspondence Clerk: Jason Estrada MD Chemicals Distiller(s): Mike Stuart MD; Dr. Draper, Dr. Duarte Pre-Procedure Diagnosis: UA, CAD Post-Procedure Diagnosis: Same Procedure(s) Performed Left heart catheterization Coronary arteriogram of the habematolel coronary arteries Percutaneous coronary intervention (PCI) with stent placement in the LAD Right femoral arteriogram Vascular closure device (Angio-Seal) iFR and FFR of the LAD Orbital Atherectomy of the LAD Description Presentation to Instrumentation Technician Indication(s) Unstable Angina - Progressively Worsening. Priority Status Urgent Chest Pain Symptoms Typical Angina Cardiovascular Instability Persistent Ischemic Symptoms (ongoing chest pain o r ST elevation) Ventricular Support None Vascular Access Vessel Size Closure Right common femoral artery 6F Angio-Seal Coronary Arteriogram Vessel Engagement: LCA: JL4.0 (5F) RCA: 3DRC (5F) [place] Vessels (Right Dominant) LM No significant obstructive disease. LAD Mid LAD (80% stenosis, FFR 0.80, iFR .89). + Calcified LCx Distal Stent Patent RCA Patent proximal and distal stent LVEDP 10-15 No gradient on LV to Ao pullback. Percutaneous Coronary Intervention Medications administered during procedure or within 24 hours prior: Antiplatelet: Aspirin and Clopidogrel Anticoagulant: Unfractionated Heparin Vessel Engagement: Guide Catheter(s): XB3.5 (6F) Guide Wire(s): [place], Whisper ; Tayo Blue Lesions # Segment(s) Culprit Previous PCI Pre-PCI Complexity Post-PCI 1 Mid LAD Yes No 80%. 15mm. ASNDRO-3. Type A/B. 0%. SANDRO-3. Intra-Coronary Devices Device Associated Lesion #'s Pre-Dilation Balloon: Emerge 2.0 x 12 mm 1 Pre-Dilation Balloon: Emerge 2.5 x 12 mm 1 Atherectomy: Diamondback 360 Coronary Orbital Atherectomy 1 Stent: Synergy 3.0 x 16 mm 1 Case Log Anesthesia Lidocaine 2% SQ, Moderate Sedation (60 min) Contrast 150 mL Specimens None Grafts/Implants Coronary Artery Stent(s) - see table above Estimated Blood Loss 30 mL Blood Products Administered None Complications None Condition on Transfer Chest Pain None Cardiac Rhythm Normal sinus rhythm. ST-Segment Deviation None Hemodynamic Status Stable Access Site Concerns None Impression Successful percutaneous coronary intervention. Recommendations Aspirin loading dose was not given. Continue 81mg daily. The next dose is due tomorrow morning. Clopidogrel loading dose was not given. Continue 75mg daily. The next dose is due tomorrow morning. Medications Taking/AdministeredAspirin Yes Statin Yes Other Lipid-Lowering No Beta Maribel Yes Calcium Channel Maribel Yes Long-Acting Nitrate No Ranolazine No Antiarrhythmic No Functional StatusHeart Failure No. CSHA Frailty Score 4 - Vulnerable (Activites are limited by symptoms. However, n ot dependent on others) Note Created By: Mike Stuart MD [facility] Dr. Estrada Associated attestation - Jason Estrada MD - 07/21/2018 11:49 PM CDT I was present for the entire procedure. I performed critical steps of the proced ure myself. I have reviewed the procedure details as documented by Cardiology fe llow Dr. Stuart and concur with the findings and recommendations. Jason Estrada MD, [facility], [facility] Grading Machine Feeder Medicine Section of Cardiology Department of Medicine [facility], [place], [place] Assessment and Plan Deondre Osei is a 57 y.o. male with PMHX outlined including CAD s/p PCI to mid-L CX (Bare Metal Integrity 3.0 x 18mm stent) on 03/21/2014. He had staged PCI of mi d-RCA (Vision 3.0 x 15) and distal RCA (Vision 2.5 x 15mm) on 04/22/2014. Has und ergone parathyroidectomy for hypercalcemia resulting in CRI. He has been doing w ell. He has been compliant with his medications, no chest pain, did run out of h ydralazine a few weeks ago and felt short of breath. He has noticed skin itching and rash. He also is concerned about his anemia, hx of upper GI bleeding from an ulcer, had endoscopy at [facility]. Clinic Visit 05/07/19: Here for follow-up. Since last visit, he has been doing w ell. He had PCI to LAD done 07/14/18. No chest pain, doing overall better. No di zziness.Compliant with his medications. On CPAP for severe ERIC and feels a lot b gabi. Has minor bleeding due to hemorrhoids. He has no chest pain or shortness of breath with exertion. 1. Stable CAD. Continue current medical therapy. S/p recent PCI to LAD in-stent restenosis. 2. Tolerating Coreg to 25mg BID, Hydralazine/Amlodipine. 3. Recommend compression stockings. 4. Echocardiogram prior to next visit. 5. Lipid panel and LPa levels. RTC in 6 months. ICD-10-CM 1. Coronary artery disease involving habematolel coronary artery of habematolel heart with out angina pectoris I25.10 2. Essential hypertension I10 3. Dyslipidemia E78.5 documented in this encounter Plan of Treatment Date/Time Name Type Priority Associated Diag noses 05/07/2019 9:15 AM CDT ELECTROCARDIOGRAM ECG Routine Essential hy pertension COMPLETE Order Schedule Name Type Priority Associated Diag noses Ordered: 05/07/2019 LIPID PANEL Lab Routine Essential hyper tension Coronary artery disease involving habematolel coronary artery of habematolel heart without angina pectoris Dyslipidemia Expected: 05/07/2019, Expires: 0 ECHO, COMPLETE Cardiac Routine Essential hyper tension Services Coronary artery disease involving habematolel coronary artery of habematolel heart without angina pectoris Ordered: 05/07/2019 LIPOPROTEIN A (LPA) Lab Routine Essential hypertension Coronary artery disease involving habematolel coronary artery of habematolel heart without angina pectoris Dyslipidemia Health Maintenance Due Date Last Done Comments BMI FOLLOW UP PLAN 1976 HEPATITIS C SCREENING 1976 HIV SCREENING 1976 FLU VACCINE > 6 MONTHS 05/06/2019 06/29/2015 COLON CANCER SCREENIN11/08/2024 11/08/2014 COLONOSCOPY TETANUS SHOT (ADULT) 12/28/2028 12/28/2018 documented as of this encounter Procedures Comments Procedure Name Priority Date/Time Associated Diag nosis ELECTROCARDIOGRAM Routine 05/07/2019 Essential hy pertension COMPLETE 9:15 AM CDT documented in this encounter Results Not on filedocumented in this encounter Visit Diagnoses Diagnosis Coronary artery disease involving nativ e coronary artery of habematolel heart without angina pectoris - Primary Essential hypertension Unspecified essential hypertension Dyslipidemia Other and unspecified hyperlipidemia documented in this encounter Insurance Type Payer Benefit Subscriber ID Effective Phone Address Plan / Dates Group PPO CARDIOVASCULAR CARE CVCP-AETNA xxxxxxxxxx [id number] PROVIDERS resent [facility] [address] [place] [address] Guarantor Name Account Relation to Date of Phone Gee calderón Address Type Patient Deondre Osei Personal/F Self 1960 [address] 1960 [address] (Home) [place] [address] documented as of this encounter
--- OUTSIDE RECORDS SUMMARY | 2020-05-14 11:58 | XMS REPORT | Continuity of Care Document ---
Author Author [facility] t Organization [facility] Address [address] [place] [address] Phone Unavailable Care Team Providers Care Theatre Instructor Name Role Phone NONSTAFF PCP Unavailable Sean MAYNARD, Jason Attphys DAHU, S JIRIES Attphys Unavailable ZENIA DAVIS Attphys Unavailable GARRETCOOKIE Attphys Unavailable DAHU, S JIRIES Admphys Unavailable JUD, TONYA CHIMKAMA Admphys Unavailable Payers Payer Name Policy Type Policy Number Effective Date Expiration Date Filemon Ramos Pos [id number] 2015 00:00:00 [facility] Problems Condition Name Condition Details Condition Category Status Onset Date Resolution Date Last Treatment Date Treating Clinician Comments Source Hypokalemia Hypokalemia Disease Active 2018-07-13 00:00:00 [facility] Hypomagnesemia Hypomagnesemia Disease Active 2018-07-13 00:00:00 [facility] Hypothyroidism Hypothyroidism Disease Active 2018-07-13 00:00:00 [facility] RA (rheumatoid arthritis) RA (rheumatoid arthritis) Disease Ac tive 2018-07-13 00:00:00 [facility] Metabolic acidosis Metabolic acidosis Disease Active 2018-07-13 00:00:0 0 [facility] Precordial pain Precordial pain Disease Active 2018-07-11 00:00:00 [facility] Sinus tachycardia Sinus tachycardia Disease Active 2015-12-28 00:00:00 [facility] Myositis Myositis Disease Active 2015-12-28 00:00:00 [facility] Inflammation around joint Inflammation around joint Disease Ac tive 2015-12-28 00:00:00 [facility] Pneumonia Pneumonia Disease Active 2015-09-30 00:00:00 [facility] Hypertension Hypertension Disease Active 2015-05-23 00:00:00 [facility] Hyperlipidemia Hyperlipidemia Disease Active 2015-05-23 00:00:00 [facility] Anemia Anemia Disease Active 2014-11-02 00:00:00 [facility] Primary hyperparathyroidism Primary hyperparathyroidism Disease Active 2014-06-16 00:00:00 [facility] Chronic kidney failure Chronic kidney failure Disease Active 2014-04-11 00:00:00 [facility] BP (high blood pressure) BP (high blood pressure) Disease Acti ve 2014-04-11 00:00:00 [facility] AVINASH (acute kidney injury) AVINASH (acute kidney injury) Disease Ac tive 2014-03-26 00:00:00 [facility] Hypercalcemia Hypercalcemia Disease Active 2014-03-26 00:00:00 [facility] Hyperparathyroidism Hyperparathyroidism Disease [facility] 2014-03[facility]26 [facility] Nephrolithiasis Disease Active 2014-03-26 00:00:00 [facility] Gout Gout Disease Active 2014-03-26 00:00:00 [facility] CAD (coronary artery disease) CAD (coronary artery disease) Disease Active 2014-03-26 00:00:00 [facility] Exercise-induced angina Angina effort Problem Active [facility] Dyspnea Dyspnea Problem Active [facility] Allergies, Adverse Reactions, Alerts This patient has no known allergies or adverse reactions. Family History Family Member Diagnosis Comments Start Date Stop Date Source Natural brother Hyperlipidemia [facility] Natural father Heart disease [facility] Natural father Hypertension [facility] Natural mother Colon cancer [facility] Natural sister Diabetes [facility] Social History Social Habit Start Date Stop Date Quantity Comments Source Sex Assigned At [facility] Tobacco Comment 2014-06-13 00:00:00 2014-06-13 00:00:00 quit smoking 2006 [facility] Smoking Status Start Date Stop Date Source Former smoker 2018-07-15 00:00:00 2018-07-15 00:00:00 [facility] Medications Ordered Medication Name Filled Medication Name Start Date Stop Da te Current Medication? Ordering Clinician Indication Dosage Frequency Signature (SIG) Comments Components Source Albuterol Sulfate (Proair Hfa Inhaler*) 8.5 Gm Inh Alb uterol Sulfate (Proair Hfa Inhaler*) 8.5 Gm Inh 2019-02-25 00:00:00 Yes Cole Oakley Md 2 Every 4 Hours as needed for Shortness Of Breath [facility] Prednisone 20 Mg Tab Prednisone 20 Mg Tab 2019-02-25 00:00:00 Yes Cole Oakley Md 20 Daily [facility] acetaminophen (TYLENOL) 325 MG tablet 2018-07-13 00:00 :00 2019-07-08 23:59:00 No 650mg Take 2 tablets (650 mg total) by mouth every 4 (four) hours as needed for up to 360 days. [facility] brimonidine-timolol (COMBIGAN) 0.2-0.5 % ophthalmic solution 2018-07-11 04:15:39 Yes 1[drp] Q.5D 1 drop 2 (two) times daily. [facility] gabapentin (NEURONTIN) 300 MG capsule 2018-07-11 01:09:46 Yes Hyperlipidemia Q.5D Take by mouth 2 (two) times daily . [facility] clopidogrel (PLAVIX) 75 mg tablet 2018-07-11 01:09:46 Yes 75mg QD Take 75 mg by mouth daily. [facility] glimepiride (AMARYL) 4 MG tablet 2018-07-11 01:07:42 Yes Hyperlipidemia 2mg Take 2 mg by mouth every morning before breakfast . [facility] bumetanide (BUMEX) 0.5 MG tablet 2018-07-11 01:07:42 Yes .5mg Q.5D Take 0.5 mg by mouth 2 (two) times daily . [facility] colchicine (COLCRYS) 0.6 mg tablet 2018-07-11 01:07:42 Yes .6mg Take 0.6 mg by mouth Only takes MWF. [facility] aspirin 325 MG tablet 2018-07-11 01:07:42 Yes 325mg QD Take 325 mg by mouth daily. [facility] amLODIPine (NORVASC) 10 MG tablet 2017-11-19 00:00:00 Yes 10mg Take 10 mg by mouth. [facility] predniSONE (DELTASONE) 5 MG tablet 2015-12-28 18:50:22 Yes 5mg QD Take 5 mg by mouth daily. [facility] traMADol (ULTRAM) 50 mg tablet 2015-12-28 18:50:22 Yes 50mg Take 50 mg by mouth every 6 (six) hours as needed for Pain. [facility] febuxostat 40 mg tablet 2015-12-28 04:52:49 Yes 40mg QD Take 40 mg by mouth daily. [facility] hydroxychloroquine (PLAQUENIL) 200 mg tablet 2015-11-24 00:00:00 Yes 200mg Take 200 mg by mouth. [facility] olmesartan (BENICAR) 40 MG tablet 2015-10-01 00:00:00 Yes 40mg QD Take 1 tablet (40 mg total) by mouth daily. [facility] carvedilol (COREG) 25 MG tablet 2015-06-16 00:00:00 Yes Hyperlipidemia 25mg Take 1 tablet (25 mg total) by mouth 2 (two) times daily with breakfast and dinner. [facility] linagliptin (TRADJENTA) 5 mg Tab 2015-05-23 10:21:23 Yes Hyperlipidemia 5mg QD Take 5 mg by mouth daily. [facility] atorvastatin (LIPITOR) 80 MG tablet 2015-05-23 00:00:00 Yes Hyperlipidemia 80mg QD Take 1 tablet (80 mg total) by mouth daily. [facility] cholecalciferol (VITAMIN D3) 1,000 units tablet 2014-04-21 12:56 :22 Yes 5000U QD Take 5,000 Units by mouth daily. [facility] multivitamin (THERAGRAN) tablet 2014-04-21 12:56:22 Yes 1{tbl} QD Take 1 tablet by mouth daily. [facility] Amlodipine Besylate 10 Mg Tablet Amlodipine Besylate 10 Mg Tablet Yes 10 Daily [facility] Atorvastatin Calcium 20 Mg Tablet Atorvastatin Calcium 20 Mg Tablet Yes 80 Bedtime [facility] Carvedilol 12.5 Mg Tablet Carvedilol 12.5 Mg Tablet Yes 25 Twice A Day [facility] Clopidogrel Bisulfate (Clopidogrel) 75 Mg Tablet Clopi dogrel Bisulfate (Clopidogrel) 75 Mg Tablet Yes 75 Daily [facility] Furosemide 40 Mg Tablet Furosemide 40 Mg Tablet Yes 40 Daily [facility] Glimepiride 4 Mg Tablet Glimepiride 4 Mg Tablet Yes 4 Daily [facility] Hydralazine Hcl 25 Mg Tab Hydralazine Hcl 25 Mg Tab Yes 50 Three Times A Day [facility] Levofloxacin (Levaquin) 500 Mg Tablet Levofloxacin (Levaquin) 500 M g Tablet Yes 500 Daily [facility] Prednisone 5 Mg Tablet Prednisone 5 Mg Tablet Yes 5 Daily [facility] Amlodipine Besylate 10 Mg Tablet, Amlodipine Besylate 10 Mg Tabl et, 2019-02-25 00:00:[address] [facility] Atorvastatin Calcium 80 Mg Tablet, Atorvastatin Calcium 80 Mg Ta blet, 2019-02-25 00:00:00 [facility] Carvedilol 25 Mg Tablet, Carvedilol 25 Mg Tablet, 2019-02-25 00: 00:00 [facility] Clopidogrel Bisulfate (Clopidogrel) 75 Mg Tablet, Clop idogrel Bisulfate (Clopidogrel) 75 Mg Tablet, 2019-02-25 00:00:00 [facility] Furosemide 40 Mg Tablet, Furosemide 40 Mg Tablet, 2019-02-25 00: 00:00 [facility] Glimepiride 4 Mg Tablet, Glimepiride 4 Mg Tablet, 2019-02-25 00: 00:00 [facility] Hydralazine Hcl 50 Mg Tablet, Hydralazine Hcl 50 Mg Tablet, 2019-02-25 00:00:00 No [facility] Levofloxacin 500 Mg Tablet, Levofloxacin 500 Mg Tablet, 2019-02-25 00:00:00 No [facility] Prednisone 5 Mg Tablet, Prednisone 5 Mg Tablet, 2019-02-25 00:00 :00 No [facility] Procedures This patient has no known procedures. Plan of Care Planned Activity Planned Date Details Comments Source Future Scheduled Test 2024-11-08 00:00:00 Screening for jasvir gnant neoplasm of colon (procedure) [code = 811819112] [facility] Future Scheduled Test 2021-07-12 00:00:00 Lipid panel (proce dure) [code = 33413036] [facility] Future Scheduled Test 2020-06-06 00:00:00 INFLUENZA VACCINE (#1) [code = INFLUENZA VACCINE (#1)] [facility] Future Scheduled Test 1966 00:00:00 PNEUMOCOCCAL VACCI NE 2-64 YEARS AT RISK (1 of 3 - PCV13) [code = PNEUMOCOCCAL VACCINE 2-64 YEARS AT RISK (1 of 3 - PCV13)] [facility] Encounters Start Date/Time End Date/Time Encounter Type Ad[facility] Encounter ID Source 2019-05-07 08:16:36 2019-05-07 09:51:34 Office Visit Jason Estrada [facility] [id number] 2019-02-24 15:52:00 2019-02-25 12:36:00 Discharged Inpatient (obs) 1 JAVIER HITCHCOCK [facility] [id number] [facility] Results Test Description Test Time Test Comments Results Result Comments Source Sodium Level 2019-02-25 07:00:00 Test Item Sodium Level (test code = 2951-2) 138 136-145 [facility] [id number] 07:00:00* Test Item Value Reference Range Interpretation Comments Potassium Level (test code = 2823-3) 4.2 3.5-5.1 [facility]Chloride Fpewp0217-12-45 07:00:00* Test Item Value Reference Range Interpretation Comments Chloride Level (test code = 2075-0) 103 98-107 [facility]Car[facility] Dioxide Jwxga8891-79-38 07:00:00* Test Item Value Reference Range Interpretation Comments Carbon Dioxide Level (test code = 2028-9) 20 22-29 L [facility] HospitalAnion Qsx5902-00-00 07:00:00* Test Item Value Reference Range Interpretation Comments Anion Gap (test code = 71983-3) 19.2 8-16 H [facility] Urea Hqwyapgl8138-93-11 07:00:00* Test Item Value Reference Range Interpretation Comments Blood Urea Nitrogen (test code = 3094-0) 35 7-26 H [facility] HospitalCreatinine2019-05-23 07:00:00* Test Item Value Reference Range Interpretation Comments Creatinine (test code = 2160-0) 2.07 0.72-1.25 H [facility] HospitalBUN/Creatinine Qooac3950-59-43 07:00:00* Test Item Value Reference Range Interpretation Comments BUN/Creatinine Ratio (test code = 3097-3) 17 6-25 [facility]Estimat Glomerular Filtration Rate 2019-02-25 07:00:00* Test Item Value Reference Range Interpretation Comments Estimat Glomerular Filtration Rate (test code = 623695034) 33 >60 L Ranges were taken from the National Kidney Disease Education Program and the [facility] literature.Reference ranges:60 or greater: Drgbat92-21 ( for 3 consecutive months): Chronic kidney disease 15 or less: Kidney failureSeymour HospitalGlucose Juhlg6921-97-03 07:00:00* Test Item Value Reference Range Interpretation Comments Glucose Level (test code = ZBC0649) 155 74-118 H [facility] HospitalCalcium Dauao6458-14-29 07:00:00* Test Item Value Reference Range Interpretation Comments Calcium Level (test code = 53664-5) 9.2 8.4-10.2 [facility] HospitalTotal Dyvpqlfho5692-11-28 07:00:00* Test Item Value Reference Range Interpretation Comments Total Bilirubin (test code = 1975-2) 0.6 0.2-1.2 [facility] HospitalAspartate Amino Transf (AST/SGOT) 2019-02-25 07:00:00* Test Item Value Reference Range Interpretation Comments Aspartate Amino Transf (AST/SGOT) (test code = Aspartate Amino Transf (AST/SGOT)) 32 5-34 [facility] HospitalAlanine Aminotransferase (ALT/SGPT) 2019-02-25 07:00:00* Test Item Value Reference Range Interpretation Comments Alanine Aminotransferase (ALT/SGPT) (test code = 1742-6) 43 0-55 [facility] HospitalTotal Wmhrlkk4162-89-75 07:00:00* Test Item Value Reference Range Interpretation Comments Total Protein (test code = 2885-2) 7.2 6.5-8.1 [facility] HospitalAlbumin2019-05-23 07:00:00* Test Item Value Reference Range Interpretation Comments Albumin (test code = 1751-7) 3.8 3.5-5.0 [facility] HospitalGlobulin2019-05-23 07:00:00* Test Item Value Reference Range Interpretation Comments Globulin (test code = 89181-3) 3.4 2.3-3.5 [facility] HospitalAlbumin/Globulin Ltbvv4620-49-98 07:00:00 * Test Item Value Reference Range Interpretation Comments Albumin/Globulin Ratio (test code = 1759-0) 1.1 0.8-2.0 [facility] HospitalAlkaline Agfaukfvwxv4046-91-98 07:00:00* Test Item Value Reference Range Interpretation Comments Alkaline Phosphatase (test code = 6768-6) 52 40-150 [facility] HospitalTriglycerides Buyjy5745-54-30 06:22:00* Test Item Value Reference Range Interpretation Comments Triglycerides Level (test code = 2571-8) 106 0-149 [facility] HospitalCholesterol Arncp0482-53-62 06:22:00* Test Item Value Reference Range Interpretation Comments Cholesterol Level (test code = 2093-3) 141 0-199 Less than 200 mg/dL Low Rwod311 - 239 mg/dL Borderline Voxo710 m g/dl and greater High Risk [facility] HospitalLDL Axfegvuyxik0750-70-76 06:22:00* Test Item Value Reference Range Interpretation Comments LDL Cholesterol (test code = 2089-1) 80 60-130 [facility] HospitalHDL Vlixcywunly1121-58-73 06:22:00* Test Item Value Reference Range Interpretation Comments HDL Cholesterol (test code = 2085-9) 40 40-60 [facility] HospitalCholesterol/HDL Txtbk5320-74-09 06:22:00 * Test Item Value Reference Range Interpretation Comments Cholesterol/HDL Ratio (test code = 9830-1) 3.5 3.9-4.7 L [facility] HospitalMagnesium Wztgo7425-55-44 06:07:00* Test Item Value Reference Range Interpretation Comments Magnesium Level (test code = 89495-2) 2.1 1.3-2.1 [facility] HospitalCreatine Prunmg6765-12-46 05:59:00* Test Item Value Reference Range Interpretation Comments Creatine Kinase (test code = 2157-6) 219 30-200 H [facility] HospitalCreatine Kinase LU4703-87-88 05:54:00* Test Item Value Reference Range Interpretation Comments Creatine Kinase MB (test code = 34470-1) 1.60 0-5.0 [facility] HospitalTroponin D8145-92-65 05:54:00* Test Item Value Reference Range Interpretation Comments Troponin I (test code = KBM7244) 0.009 0-0.300 [facility] HospitalCHEST SINGLE (PORTABLE)2019-02-25 05:49:00 [facility] [address] [address] Patient Name: SUHA MARIE MR #: [id number] : 1960 Age/Sex: 58/M Req #: [id number] Adm Physician: JAVIER HITCHCOCK MD Ordered by: COLE OAKLEY MD Report #: [id number] Location: [facility] Room/Bed: [address] [address] Procedure: [id number] DX/ CHEST SINGLE (PORTABLE) Exam Date: 02/25/19 Exam Edward e: 0530 REPORT STATUS: Signed Ex amination: Single AP view of the chest. COMPARISON: None. INDICATION: Congestive heart failure DISCUSSION: Lines/tubes: None. Dominic gs: Pulmonary venous congestion Pleura: No pleural effusion or pneumothor ax. Heart and mediastinum: Mild cardiomegaly. Bones and soft tissues: No acute bony abnormalities. IMPRESSION: 1. Mild cardiomegaly with pulmonary venous congestion Signed by: Dr. Hahn Santana M.D. on 5:51 AM Dictated By: HANH SANTANA MD 0 Transcribed By: HOLGER on 02/25/19 COPY TO: COLE OAKLEY MD, [facility] White Blood Hgzap2574-96-61 05:35:00* Test Item Value Reference Range Interpretation Comments White Blood Count (test code = 6690-2) 7.47 4.8-10.8 [facility] HospitalRed Blood Lynjl2663-34-97 05:35:00* Test Item Value Reference Range Interpretation Comments Red Blood Count (test code = 789-8) 3.89 4.3-5.7 L [facility] HospitalHemoglobin2019-05-23 05:35:00* Test Item Value Reference Range Interpretation Comments Hemoglobin (test code = 29592-1) 12.2 14.0-18.0 L [facility] HospitalHematocrit2019-05-23 05:35:00* Test Item Value Reference Range Interpretation Comments Hematocrit (test code = 4544-3) 36.8 38.2-49.6 L [facility] HospitalMean Corpuscular Rnkkiq4557-68-06 05:35:00* Test Item Value Reference Range Interpretation Comments Mean Corpuscular Volume (test code = 787-2) 94.6 81-99 [facility] HospitalMean Corpuscular Uhnlkycgln0380-36-49 05:35:00* Test Item Value Reference Range Interpretation Comments Mean Corpuscular Hemoglobin (test code = 785-6) 31.4 28-32 [facility] HospitalMean Corpuscular Hemoglobin Concent 2019-02-25 05:35:00* Test Item Value Reference Range Interpretation Comments Mean Corpuscular Hemoglobin Concent (test code = 786-4) 33.2 31-35 [facility] HospitalRed Cell Distribution Zqaah5310-68-77 05:35:00* Test Item Value Reference Range Interpretation Comments Red Cell Distribution Width (test code = 27755-8) 12.8 11.7 -14.4 [facility] HospitalPlatelet Doqqx0301-37-44 05:35:00* Test Item Value Reference Range Interpretation Comments Platelet Count (test code = 777-3) 162 140-360 [facility] HospitalNeutrophils (%) (Auto)2019-02-25 05:35:00 * Test Item Value Reference Range Interpretation Comments Neutrophils (%) (Auto) (test code = 10702-8) 85.2 38.7-80.0 H [facility] HospitalLymphocytes (%) (Auto)2019-02-25 05:35:00 * Test Item Value Reference Range Interpretation Comments Lymphocytes (%) (Auto) (test code = 736-9) 10.4 18.0-39.1 L [facility] HospitalMonocytes (%) (Auto)2019-02-25 05:35:00* Test Item Value Reference Range Interpretation Comments Monocytes (%) (Auto) (test code = 5905-5) 1.9 4.4-11.3 L [facility] HospitalEosinophils (%) (Auto)2019-02-25 05:35:00 * Test Item Value Reference Range Interpretation Comments Eosinophils (%) (Auto) (test code = 713-8) 0.4 0.0-6.0 [facility] HospitalBasophils (%) (Auto)2019-02-25 05:35:00* Test Item Value Reference Range Interpretation Comments Basophils (%) (Auto) (test code = 706-2) 0.4 0.0-1.0 [facility] HospitalIM GRANULOCYTES %2019-02-25 05:35:00* Test Item Value Reference Range Interpretation Comments IM GRANULOCYTES % (test code = IM GRANULOCYTES %) 1.7 0.0- 1.0 H [facility] HospitalNeutrophils # (Auto)2019-02-25 05:35:00* Test Item Value Reference Range Interpretation Comments Neutrophils # (Auto) (test code = 751-8) 6.4 2.1-6.9 [facility] HospitalLymphocytes # (Auto)2019-02-25 05:35:00* Test Item Value Reference Range Interpretation Comments Lymphocytes # (Auto) (test code = 47529-9) 0.8 1.0-3.2 L [facility] HospitalMonocytes # (Auto)2019-02-25 05:35:00* Test Item Value Reference Range Interpretation Comments Monocytes # (Auto) (test code = 742-7) 0.1 0.2-0.8 L [facility] HospitalEosinophils # (Auto)2019-02-25 05:35:00* Test Item Value Reference Range Interpretation Comments Eosinophils # (Auto) (test code = 711-2) 0.0 0.0-0.4 [facility] HospitalBasophils # (Auto)2019-02-25 05:35:00* Test Item Value Reference Range Interpretation Comments Basophils # (Auto) (test code = 704-7) 0.0 0.0-0.1 [facility] HospitalAbsolute Immature Granulocyte (auto 2019-02-25 05:35:00* Test Item Value Reference Range Interpretation Comments Absolute Immature Granulocyte (auto (brittany t code = Absolute Immature Granulocyte (auto) 0.13 0-0.1 H [facility] SYFKRQAVU7174-24-48 20:33:00 [facility] [address] [address] Patient Name: SUHA MARIE MR #: [id number] : 1960 Age/Sex: 58/M Req #: [id number] Adm Physician: JAVIER HITCHCOCK MD Ordered by: DELROY KUHN MD Report #: [id number] Location: [facility] Room/Bed: [address] [address] Procedure: [id number] N M/VQ LUNG SCAN VENT PERFUSION Exam Date: Exam Ti me: REPORT STATUS: Signed Perfu angela/Aerosol Lung Study Clinical Information: Shortness of breath Comp arison: Chest radiograph 02/24/2019 Discussion: Ventilation images of the [facility] were obtained in multiple projections following administration of 40 mCi o f Tc-99m DTPA via nebulization. Distribution of tracer activity appears physi ologic throughout the lungs. No segmental ventilatory defects are identified. Perfusion images of the lungs in multiple projections were obtained follow ing intravenous administration of 7.5 mCi of Tc-99m MAA. Distribution of trace r activity appears physiologic throughout the lungs. There are no segmental perfusion defects of any size. The perfusion images are well matched to the a erosol images. The cardiac silhouette is unremarkable. Impression: Normal ventilation perfusion lung scan. Scan findings represent a VERY LOW probability for acute pulmonary embolic disease based on the PIOPED II criteri a. Signed by: Dr. Twyla Castro M.D. on 02/24/2019 8:36 PM Di ctated By: TWYLA CASTRO MD 35 Transcribed By: HOLGER on 02/24/192035 COPY TO: DELROY KUHN MD CXR 1 VEW - [id number] 14:26:[address] [address] Patient Name: SUHA MARIE MR #: [id number] : 1960 Age/Sex: 58/M Req #: [id number] Adm Physician: Ordered by: DELROY KUHN MD Report #: [id number] Location: [facility] Room/Bed: Procedure: [id number] PD[facility] 1 [facility] Ex[facility] Date: 02/24/19 Exam Time: REPORT STATUS: Signed Examin ation: Single AP view of the chest. COMPARISON: None. INDICATION: Ches t pain shortness of breath DISCUSSION: The lungs are well-inflate d and without focal consolidation, pleural effusion, or pneumothorax. Cardiome diastinal contour and pulmonary vasculature are within normal limits for jasmina ble, AP technique. No acute osseous abnormalities. IMPRESSION: 1. No acute cardiopulmonary abnormalities. Signed by: Dr. Sen hayden M.D. on 02/24/2019 2:28 PM Dictated By: SEN NDIAYE MD Electronica lly Signed By: SEN NDIAYE MD on 02/24/191427 Transcribed By: HOLGER on 1427 COPY TO: DELROY KUHN MD BASIC METABOLIC PANEL 2018-07-15 05:49:00* Test Item Value Reference Range Interpretation Comments SODIUM (BEAKER) (test code = 381) 142 meq/L 136-145 POTASSIUM (BEAKER) (test code = 379) 3.9 meq/L 3.5-5.1 CHLORIDE (BEAKER) (test code = 382) 111 meq/L 98-107 H CO2 (BEAKER) (test code = 355) 22 meq/L 22-29 BLOOD UREA NITROGEN (BEAKER) (test code = 354) 16 mg/dL 7-21 CREATININE (BEAKER) (test code = 358) 1.34 mg/dL 0.57-1.25 H GLUCOSE RANDOM (BEAKER) (test code = 652) 94 mg/dL 70-105 CALCIUM (BEAKER) (test code = 697) 8.6 mg/dL 8.4-10.2 EGFR (BEAKER) (test code = 1092) 54 mL/min/1.73 sq m ESTIMATED GFR IS NOT ACCURATE CREATININE CLEARANCE IN PREDICTING GLOMERULAR FILTRATION RATE. ESTIMATED GFR IS NOT APPLICABLE FOR DIALYSIS PATIENTS. CBC (HEMOGRAM ONLY)2018-07-15 05:33:00* Test Item Value Reference Range Interpretation Comments WHITE BLOOD CELL COUNT (BEAKER) (test code = 775) 5.8 K/ L 3.5- 10.5 RED BLOOD CELL COUNT (BEAKER) (test code = 761) 3.49 M/ L 4.63-6 .08 L HEMOGLOBIN (BEAKER) (test code = 410) 11.1 GM/DL 13.7-17.5 L HEMATOCRIT (BEAKER) (test code = 411) 32.1 % 40.1-51.0 L MEAN CORPUSCULAR VOLUME (BEAKER) (test code = 753) 92.0 fL 79. 0-92.2 MEAN CORPUSCULAR HEMOGLOBIN (BEAKER) (test code = 751) 31.8 pg 25.7-32.2 MEAN CORPUSCULAR HEMOGLOBIN CONC (BEAKER) (test code = 752) 34.6 GM/DL 32.3-36.5 RED CELL DISTRIBUTION WIDTH (BEAKER) (test code = 412) 13.8 % 11.6-14.4 PLATELET COUNT (BEAKER) (test code = 756) 80 K/CU MM 150-450 L MEAN PLATELET VOLUME (BEAKER) (test code = 754) 11.7 fL 9.4-12 .4 NUCLEATED RED BLOOD CELLS (BEAKER) (test code = 413) 0 /100 WBC 0 -0 [id number]-[id number] 18:50:00* Test Item Value Reference Range Interpretation Comments ACTIVATED CLOTTING TIME (BEAKER) (test code = 441) 268 sec TESTED AT [facility] [address] [facility] [address] [id number] 18:50:00* Test Item Value Reference Range Interpretation Comments ACTIVATED CLOTTING TIME (BEAKER) (test code = 441) 252 sec TESTED AT [place] [id number] [facility] [address] [id number] 18:50:00* Test Item Value Reference Range Interpretation Comments ACTIVATED CLOTTING TIME (BEAKER) (test code = 441) 241 sec TESTED AT [address] [address] [id number] 05:27:00* Test Item Value Reference Range Interpretation Comments PHOSPHORUS (BEAKER) (test code = 604) 3.6 mg/dL 2.3-4.7 [id number] 05:27:00* Test Item Value Reference Range Interpretation Comments MAGNESIUM (BEAKER) (test code = 627) 2.0 mg/dL 1.6-2.6 BASIC METABOLIC [id number] 05:27:00* Test Item Value Reference Range Interpretation Comments SODIUM (BEAKER) (test code = 381) 141 meq/L 136-145 POTASSIUM (BEAKER) (test code = 379) 3.6 meq/L 3.5-5.1 CHLORIDE (BEAKER) (test code = 382) 110 meq/L 98-107 H CO2 (BEAKER) (test code = 355) 22 meq/L 22-29 BLOOD UREA NITROGEN (BEAKER) (test code = 354) 19 mg/dL 7-21 CREATININE (BEAKER) (test code = 358) 1.37 mg/dL 0.57-1.25 H GLUCOSE RANDOM (BEAKER) (test code = 652) 95 mg/dL 70-105 CALCIUM (BEAKER) (test code = 697) 8.7 mg/dL 8.4-10.2 EGFR (BEAKER) (test code = 1092) 53 mL/min/1.73 sq m ESTIMATED GFR IS NOT ACCURATE CREATININE CLEARANCE IN PREDICTING GLOMERULAR FILTRATION RATE. ESTIMATED GFR IS NOT APPLICABLE FOR DIALYSIS PATIENTS. CBC (HEMOGRAM ONLY)2018-07-14 05:04:00* Test Item Value Reference Range Interpretation Comments WHITE BLOOD CELL COUNT (BEAKER) (test code = 775) 5.5 K/ L 3.5- 10.5 RED BLOOD CELL COUNT (BEAKER) (test code = 761) 3.75 M/ L 4.63-6 .08 L HEMOGLOBIN (BEAKER) (test code = 410) 11.7 GM/DL 13.7-17.5 L HEMATOCRIT (BEAKER) (test code = 411) 34.1 % 40.1-51.0 L MEAN CORPUSCULAR VOLUME (BEAKER) (test code = 753) 90.9 fL 79. 0-92.2 MEAN CORPUSCULAR HEMOGLOBIN (BEAKER) (test code = 751) 31.2 pg 25.7-32.2 MEAN CORPUSCULAR HEMOGLOBIN CONC (BEAKER) (test code = 752) 34.3 GM/DL 32.3-36.5 RED CELL DISTRIBUTION WIDTH (BEAKER) (test code = 412) 13.4 % 11.6-14.4 PLATELET COUNT (BEAKER) (test code = 756) 91 K/CU MM 150-450 L MEAN PLATELET VOLUME (BEAKER) (test code = 754) 11.3 fL 9.4-12 .4 NUCLEATED RED BLOOD CELLS (BEAKER) (test code = 413) 0 /100 WBC 0 -0 PET, CARDIAC PERFUSION MULTIPLE STUDIES, REST AND [id number] 15:25:00 Reason for exam:->Chest pain, recent PCIFINAL REPORT PROCEDURE: Rest/Stress MYOCARDIAL PERFUSION PET with regadenoson\XA9\ CPT CODE: 86242 INDICATION: Chest pain HISTORY: Cardiac risk factors: The diabetes, hypertension, hyperlipidemia, CKD. Other cardiovascular history: CAD, MT, PCI, CHF. Recent cardiac symptoms: Chest pain. [...] tracer distribution is normal. 6. No previous [facility] study for comparison. Signed: Yuri Chan MDReport Verified Date/Time: 07/13/2018 15:25:45 Reading Location: [address] Reading Room [id number] 05:20:00* Test Item Value Reference Range Interpretation Comments PHOSPHORUS (BEAKER) (test code = 604) 3.8 mg/dL 2.3-4.7 [id number] 05:20:00* Test Item Value Reference Range Interpretation Comments MAGNESIUM (BEAKER) (test code = 627) 1.7 mg/dL 1.6-2.6 BASIC METABOLIC [id number] 05:20:00* Test Item Value Reference Range Interpretation Comments SODIUM (BEAKER) (test code = 381) 143 meq/L 136-145 POTASSIUM (BEAKER) (test code = 379) 3.4 meq/L 3.5-5.1 L CHLORIDE (BEAKER) (test code = 382) 110 meq/L 98-107 H CO2 (BEAKER) (test code = 355) 21 meq/L 22-29 L BLOOD UREA NITROGEN (BEAKER) (test code = 354) 20 mg/dL 7-21 CREATININE (BEAKER) (test code = 358) 1.40 mg/dL 0.57-1.25 H GLUCOSE RANDOM (BEAKER) (test code = 652) 85 mg/dL 70-105 CALCIUM (BEAKER) (test code = 697) 8.7 mg/dL 8.4-10.2 EGFR (BEAKER) (test code = 1092) 52 mL/min/1.73 sq m ESTIMATED GFR IS NOT ACCURATE CREATININE CLEARANCE IN PREDICTING GLOMERULAR FILTRATION RATE. ESTIMATED GFR IS NOT APPLICABLE FOR DIALYSIS PATIENTS. CBC (HEMOGRAM ONLY)2018-07-13 04:55:00* Test Item Value Reference Range Interpretation Comments WHITE BLOOD CELL COUNT (BEAKER) (test code = 775) 5.3 K/ L 3.5- 10.5 RED BLOOD CELL COUNT (BEAKER) (test code = 761) 3.64 M/ L 4.63-6 .08 L HEMOGLOBIN (BEAKER) (test code = 410) 11.5 GM/DL 13.7-17.5 L HEMATOCRIT (BEAKER) (test code = 411) 33.0 % 40.1-51.0 L MEAN CORPUSCULAR VOLUME (BEAKER) (test code = 753) 90.7 fL 79. 0-92.2 MEAN CORPUSCULAR HEMOGLOBIN (BEAKER) (test code = 751) 31.6 pg 25.7-32.2 MEAN CORPUSCULAR HEMOGLOBIN CONC (BEAKER) (test code = 752) 34.8 GM/DL 32.3-36.5 RED CELL DISTRIBUTION WIDTH (BEAKER) (test code = 412) 13.6 % 11.6-14.4 PLATELET COUNT (BEAKER) (test code = 756) 81 K/CU MM 150-450 L MEAN PLATELET VOLUME (BEAKER) (test code = 754) 11.4 fL 9.4-12 .4 NUCLEATED RED BLOOD CELLS (BEAKER) (test code = 413) 0 /100 WBC 0 -0 BASIC METABOLIC [id number] 22:55:00* Test Item Value Reference Range Interpretation Comments SODIUM (BEAKER) (test code = 381) 139 meq/L 136-145 POTASSIUM (BEAKER) (test code = 379) 3.4 meq/L 3.5-5.1 L CHLORIDE (BEAKER) (test code = 382) 106 meq/L 98-107 CO2 (BEAKER) (test code = 355) 25 meq/L 22-29 BLOOD UREA NITROGEN (BEAKER) (test code = 354) 24 mg/dL 7-21 H CREATININE (BEAKER) (test code = 358) 1.45 mg/dL 0.57-1.25 H GLUCOSE RANDOM (BEAKER) (test code = 652) 129 mg/dL 70-105 H CALCIUM (BEAKER) (test code = 697) 8.8 mg/dL 8.4-10.2 EGFR (BEAKER) (test code = 1092) 50 mL/min/1.73 sq m ESTIMATED GFR IS NOT ACCURATE CREATININE CLEARANCE IN PREDICTING GLOMERULAR FILTRATION RATE. ESTIMATED GFR IS NOT APPLICABLE FOR DIALYSIS PATIENTS. [id number] 06:04:00* Test Item Value Reference Range Interpretation Comments PHOSPHORUS (BEAKER) (test code = 604) 3.9 mg/dL 2.3-4.7 [id number] 06:04:00* Test Item Value Reference Range Interpretation Comments MAGNESIUM (BEAKER) (test code = 627) 2.0 mg/dL 1.6-2.6 LIPID [id number] 06:04:00* Test Item Value Reference Range Interpretation Comments TRIGLYCERIDES (BEAKER) (test code = 540) 159 mg/dL CHOLESTEROL (BEAKER) (test code = 631) 111 mg/dL HDL CHOLESTEROL (BEAKER) (test code = 976) 30 mg/dL LDL CHOLESTEROL CALCULATED (BEAKER) (test code = 633) 49 mg/dL Triglyceride Reference Range: Low Risk <150 Borderline 150-199 High Risk 200-499 Very High Risk >=500Cholesterol Reference Range: Low Risk <200 Borderline 200-239 High Risk >240HDL Cholesterol Reference Range: Low Risk >=60 High Risk <40LDL Cholesterol Reference Range: Optimal <100 Near Optimal 100-129 Borderline 130-159 High 160-189 Very High >=190 TROPONIN [id number] 14:44:00* Test Item Value Reference Range Interpretation Comments TROPONIN I (JESSICA) (test code = 397) 0.07 ng/mL 0.00-0.03 H Troponin I (TnI) levels must be interpreted [...] acute neurological disease, and per sistent tachyarrhythmia.TROPONIN [id number] 06:25:00* Test Item Value Reference Range Interpretation Comments TROPONIN I (JESSICA) (test code = 397) 0.07 ng/mL 0.00-0.03 H Troponin I (TnI) levels must be interpreted [...] per sistent tachyarrhythmia.RAD, CHEST, 1 VIEW, NON [id number] 01:02:00Reason for exam:->CHEST PAINFINAL REPORT Chest, 1 view. History: Chest pain Comparison: Chest, 02/17/2018.. Findings: The cardiomediastinal silhouette and pulmonary vasculature are within normal limits for a portable exam. The lungs are clear without evidence of consolidation or effusion. The soft tissues and osseous structures are intact. IMPRESSION: No acute cardiopulmonary abnormality. Signed: Cally Moon Verified Date/Time: 07/11/2018 01:02:58 Reading Location: [address] Reading Room ONIN [id number] 00:32:00* Test Item Value Reference Range Interpretation Comments TROPONIN I (BEAKER) (test code = 397) 0.08 ng/mL 0.00-0.03 H Troponin I (TnI) levels must be interpreted [...] (BNP)2018-07-11 00:29:00* Test Item Value Reference Range Interpretation Comments B-TYPE NATRIURETIC PEPTIDE (BEAKER) (test code = 700) 92 pg/mL 0-100 [id number] 00:22:00* Test Item Value Reference Range Interpretation Comments MAGNESIUM (BEAKER) (test code = 627) 1.7 mg/dL 1.6-2.6 BASIC METABOLIC [id number] 00:22:00* Test Item Value Reference Range Interpretation Comments SODIUM (BEAKER) (test code = 381) 143 meq/L 136-145 POTASSIUM (BEAKER) (test code = 379) 3.8 meq/L 3.5-5.1 CHLORIDE (BEAKER) (test code = 382) 107 meq/L 98-107 CO2 (BEAKER) (test code = 355) 25 meq/L 22-29 BLOOD UREA NITROGEN (BEAKER) (test code = 354) 24 mg/dL 7-21 H CREATININE (BEAKER) (test code = 358) 1.71 mg/dL 0.57-1.25 H GLUCOSE RANDOM (BEAKER) (test code = 652) 85 mg/dL 70-105 CALCIUM (BEAKER) (test code = 697) 9.1 mg/dL 8.4-10.2 EGFR (BEAKER) (test code = 1092) 41 mL/min/1.73 sq m ESTIMATED GFR IS NOT ACCURATE CREATININE CLEARANCE IN PREDICTING GLOMERULAR FILTRATION RATE. ESTIMATED GFR IS NOT APPLICABLE FOR DIALYSIS PATIENTS. [id number] 00:19:00* Test Item Value Reference Range Interpretation Comments PROTIME (BEAKER) (test code = 759) 14.3 seconds 11.7-14.7 INR (BEAKER) (test code = 370) 1.1 <=5.9 PARTIAL THROMBOPLASTIN TIME (BEAKER) (test code = 760) 34.2 seconds 22.5-36.0 RECOMMENDED COUMADIN/WARFARIN INR THERAPY RANGESSTANDARD DOSE: 2.0 - 3.0 Inclu amy: PROPHYLAXIS for venous thrombosis, systemic embolization; TREATMENT for janet ous thrombosis and/or pulmonary embolus.HIGH RISK: Target INR is 2.5-3.5 for pat ients with mechanical heart valves.CBC W/PLT COUNT & AUTO [id number] 00:14:00* Test Item Value Reference Range Interpretation Comments WHITE BLOOD CELL COUNT (BEAKER) (test code = 775) 6.9 K/ L 3.5- 10.5 RED BLOOD CELL COUNT (BEAKER) (test code = 761) 3.82 M/ L 4.63-6 .08 L HEMOGLOBIN (BEAKER) (test code = 410) 12.2 GM/DL 13.7-17.5 L HEMATOCRIT (BEAKER) (test code = 411) 34.8 % 40.1-51.0 L MEAN CORPUSCULAR VOLUME (BEAKER) (test code = 753) 91.1 fL 79. 0-92.2 MEAN CORPUSCULAR HEMOGLOBIN (BEAKER) (test code = 751) 31.9 pg 25.7-32.2 MEAN CORPUSCULAR HEMOGLOBIN CONC (BEAKER) (test code = 752) 35.1 GM/DL 32.3-36.5 RED CELL DISTRIBUTION WIDTH (BEAKER) (test code = 412) 13.4 % 11.6-14.4 PLATELET COUNT (BEAKER) (test code = 756) 87 K/CU MM 150-450 L MEAN PLATELET VOLUME (BEAKER) (test code = 754) 11.2 fL 9.4-12 .4 NUCLEATED RED BLOOD CELLS (BEAKER) (test code = 413) 0 /100 WBC 0 -0 NEUTROPHILS RELATIVE PERCENT (BEAKER) (test code = 429) 63 % LYMPHOCYTES RELATIVE PERCENT (BEAKER) (test code = 430) 17 % MONOCYTES RELATIVE PERCENT (BEAKER) (test code = 431) 16 % EOSINOPHILS RELATIVE PERCENT (BEAKER) (test code = 432) 3 % BASOPHILS RELATIVE PERCENT (BEAKER) (test code = 437) 1 % NEUTROPHILS ABSOLUTE COUNT (BEAKER) (test code = 670) 4.31 K/ L 1.78-5.38 LYMPHOCYTES ABSOLUTE COUNT (BEAKER) (test code = 414) 1.15 K/ L 1.32-3.57 L MONOCYTES ABSOLUTE COUNT (BEAKER) (test code = 415) 1.12 K/ L 0. 30-0.82 H EOSINOPHILS ABSOLUTE COUNT (BEAKER) (test code = 416) 0.21 K/ L 0.04-0.54 BASOPHILS ABSOLUTE COUNT (BEAKER) (test code = 417) 0.04 K/ L 0. 01-0.08 IMMATURE GRANULOCYTES-RELATIVE PERCENT (BEAKER) (test code = 2801) 0 % 0-1 B-TYPE NATRIURETIC FACTOR (BNP)2018-02-17 03:54:00* Test Item Value Reference Range Interpretation Comments B-TYPE NATRIURETIC PEPTIDE (BEAKER) (test code = 700) 122 pg/mL 0-100 H TROPONIN [id number] 03:34:00* Test Item Value Reference Range Interpretation Comments TROPONIN I (BEAKER) (test code = 397) < ng/mL 0.00-0.15 Troponin I (TnI) levels [...] neurological disease, and per sistent tachyarrhythmia.COMPREHENSIVE METABOLIC [id number] 03:31:00* Test Item Value Reference Range Interpretation Comments TOTAL PROTEIN (BEAKER) (test code = 770) 6.8 gm/dL 6.0-8.5 Specimen slightly hemolyzed ALBUMIN (BEAKER) (test code = 1145) 4.3 g/dL 3.5-5.0 Specimen slightly hemolyzed ALKALINE PHOSPHATASE (BEAKER) (test code = 346) 68 U/L 30-115 BILIRUBIN TOTAL (BEAKER) (test code = 377) 0.6 mg/dL 0.1-1.2 Specimen slightly hemolyzed SODIUM (BEAKER) (test code = 381) 144 meq/L 135-148 POTASSIUM (BEAKER) (test code = 379) 3.8 meq/L 3.6-5.5 Specimen slightly hemolyzed CHLORIDE (BEAKER) (test code = 382) 112 meq/L 98-106 H CO2 (BEAKER) (test code = 355) 19 meq/L 20-29 L BLOOD UREA NITROGEN (BEAKER) (test code = 354) 30 mg/dL 10-26 H CREATININE (BEAKER) (test code = 358) 1.47 mg/dL 0.50-1.20 H Specimen slightly hemolyzed GLUCOSE RANDOM (BEAKER) (test code = 652) 106 mg/dL 70-110 CALCIUM (BEAKER) (test code = 697) 8.8 mg/dL 8.5-10.5 AST (SGOT) (BEAKER) (test code = 353) 18 U/L 5-40 Specimen slightly hemolyzed ALT (SGPT) (BEAKER) (test code = 347) 21 U/L 5-50 Specimen slightly hemolyzed EGFR (BEAKER) (test code = 1092) 49 mL/min/1.73 sq m ESTIMATED GFR IS NOT ACCURATE CREATININE CLEARANCE IN PREDICTING GLOMERULAR FILTRATION RATE. ESTIMATED GFR IS NOT APPLICABLE FOR DIALYSIS PATIENTS. RAD, CHEST, 2 [id number] 03:18:00Reason for exam:->DIZZINESSFINAL REPORT Examination: Two view Chest X-ray. CLINICAL HISTORY: Dizziness COMPARISON: 09/30/2015 The cardiomediastinal and hilar contours are unremarkable. There is no focal consolidation, pleural effusion, pneumothorax or evidence of overt pulmonary edema. There is no acute bony abnormality. IMPRESSION: No acute abnormality. Signed: Tarik Beth MDReport Verified Date /Time: 02/17/2018 03:18:42 Reading Location: [address] Reading [facility] W/PLT COUNT & AUTO [id number] 03:14:00* Test Item Value Reference Range Interpretation Comments WHITE BLOOD CELL COUNT (BEAKER) (test code = 775) 7.2 K/ L 4.0- 10.0 RED BLOOD CELL COUNT (BEAKER) (test code = 761) 3.95 M/ L 4.20-5 .80 L HEMOGLOBIN (BEAKER) (test code = 410) 12.7 GM/DL 13.0-16.8 L HEMATOCRIT (BEAKER) (test code = 411) 37.0 % 40.0-50.0 L MEAN CORPUSCULAR VOLUME (BEAKER) (test code = 753) 93.7 fL 82. 0-98.0 MEAN CORPUSCULAR HEMOGLOBIN (BEAKER) (test code = 751) 32.1 pg 27.0-33.0 MEAN CORPUSCULAR HEMOGLOBIN CONC (BEAKER) (test code = 752) 34.3 GM/DL 32.0-36.0 RED CELL DISTRIBUTION WIDTH (BEAKER) (test code = 412) 13.3 % 10.3-14.2 PLATELET COUNT (BEAKER) (test code = 756) 122 K/CU MM 150-430 L MEAN PLATELET VOLUME (BEAKER) (test code = 754) 10.0 fL 6.5-10 .5 NUCLEATED RED BLOOD CELLS (BEAKER) (test code = 413) 0 /100 WBC 0 -0 NEUTROPHILS RELATIVE PERCENT (BEAKER) (test code = 429) 65 % LYMPHOCYTES RELATIVE PERCENT (BEAKER) (test code = 430) 17 % MONOCYTES RELATIVE PERCENT (BEAKER) (test code = 431) 13 % EOSINOPHILS RELATIVE PERCENT (BEAKER) (test code = 432) 5 % BASOPHILS RELATIVE PERCENT (BEAKER) (test code = 437) 1 % NEUTROPHILS ABSOLUTE COUNT (BEAKER) (test code = 670) 4.60 K/ L 1.80-8.00 LYMPHOCYTES ABSOLUTE COUNT (BEAKER) (test code = 414) 1.20 K/ L 1.48-4.50 L MONOCYTES ABSOLUTE COUNT (BEAKER) (test code = 415) 0.90 K/ L 0. 00-1.30 EOSINOPHILS ABSOLUTE COUNT (BEAKER) (test code = 416) 0.30 K/ L 0.00-0.50 BASOPHILS ABSOLUTE COUNT (BEAKER) (test code = 417) 0.10 K/ L 0. 00-0.20 CT, BRAIN, WITHOUT [id number] 03:13:00Reason for exam:->DIZZINESSWhat is the patient's sedation [...] recommended for further c haracterization. Signed: JR Goldstein Robert MDReport Verified Date/Time: 02/17/2018 03:13:59 Reading Location: [facility] C013Y CT Body Reading Room [facility] signed by: RUFINA GOLDSTEIN on 02/17/2018 03:13 AM URINALYSIS W/ [id number] 03:06:00* Test Item Value Reference Range Interpretation Comments COLOR (BEAKER) (test code = 470) Yellow CLARITY (BEAKER) (test code = 469) Clear SPECIFIC GRAVITY UA (BEAKER) (test code = 468) 1.015 1.001-1 .035 PH UA (BEAKER) (test code = 467) 6.0 5.0-8.0 PROTEIN UA (BEAKER) (test code = 464) Negative Negative GLUCOSE UA (BEAKER) (test code = 365) Negative Negative KETONES UA (BEAKER) (test code = 371) Negative Negative BILIRUBIN UA (BEAKER) (test code = 462) Negative Negative BLOOD UA (BEAKER) (test code = 461) Negative Negative NITRITE UA (BEAKER) (test code = 465) Negative Negative LEUKOCYTE ESTERASE UA (BEAKER) (test code = 466) Negative Negat barbara UROBILINOGEN UA (BEAKER) (test code = 463) 0.2 mg/dL 0.2-1.0 BACTERIA (BEAKER) (test code = 517) Occasional RBC UA-MANUAL (BEAKER) (test code = 1659) <5 /HPF WBC UA-MANUAL (BEAKER) (test code = 1661) <5 /HPF SQUAMOUS EPITHELIAL MANUAL (BEAKER) (test code = 1663) None Seen /H PF SOURCE(Adify) (test code = 2795)
--- OUTSIDE RECORDS SUMMARY | 2020-05-14 11:58 | XMS REPORT | Clinical Summary ---
Author Author DARIN [facility]St[facility] CenterAmminexAst[facility] Organization [facility] Address Unknown Phone Unavailable Care Team Providers Care Cable Reeler Name Role Phone Aldo Enriquez MD PCP Unavailable Elizabeth Coleman MD ([place]) 9 Unavaila ble Allergies No Known Allergies Medications End Date [...] 80 Take 1 tablet 90 tablet 3 MG tabletIndications: CAD (80 mg total) 5 [...] % (two) times ophthalmic solution daily. 07/08/2019 acetaminophen (TYLENOL) Take 2 30 tablet 0 325 MG tablet tablets (650 8 mg total) by mouth every 4 (four) hours as needed for up to 360 days. Active Problems Problem Noted Date Hypokalemia [...] Gout 03/26/2014 CAD (coronary artery disease) 03/26/2014 Family History Medical History Relation Name Comments Hyperlipidemia Brother Heart disease Father Hypertension Father Colon cancer Mother Diabetes Sister Relation Name Status Comments Brother Father Mother Sister Social History Date Tobacco Use Types Packs/Day Years Used Former Smoker Smokeless Tobacco: Never Used Comments: quit smoking 2005 Alcohol Use Drinks/Week oz/Week Comments No Sex Assigned at Date Recorded Not on file Industry Job Start Date Occupation Not on file Not on file Not on file Travel End Travel History Travel Start No recent travel history available. Last Filed Vital Signs Not on file Plan of Treatment Health Maintenance Due Date Last Done Comments PNEUMOCOCCAL VACCINE 2-64 1966 YEARS AT RISK (1 of 3 - PCV13) INFLUENZA VACCINE (#1) 2020 06/29/2015 LIPID PANEL 07/12/2021 07/12/2018, 014 COLON CANCER SCREENING 11/08/2024 11/08/2014 COLONOSCOPY Implants Device Identifier Shelf Expiration Date Model / Serial / L ot Implanted Type Area Manufactur er [id number] 05/26/2020 [id number] / / [id number] Synergy Cardiovasc N/A: Heart [place] Implanted: Qty: 1 on 07/14/2018 by lukas SCI ENTIFIC Jason Estrada MD [id number] 04/04/2019 [id number] / / [id number] Device Clsr Angio-Seal Vip 6fr Cardiovasc Right: Groin ST DANI [id number] - [id number] ular MED:CARDIA Implanted: Qty: 1 on 07/14/2018 by C SURG Jason Estrada MD 12/04/2015 [id number] / / [id number] Stent,Uret F/G Contour Injection Uro Stent Bilateral: [place] 6.0/28 - [id number] Ureter SCIENTIFIC Implanted: Qty: 1 on 03/23/2014 by Melvin Loo MD Results Not on fileafter 05/14/2019 Insurance Payer Benefit Subscriber ID Type Phone Address Plan / Group AETNA - MGD CARE AETNA HMO xxxxxxxxxx HMO/POS POS QPOS Guarantor Name Account Relation to Date of Phone Billin g Address Type Patient Deondre Osei Personal/F Self 1960 [address] (Home) [place] [address] Advance Directives For more information, please contact: [facility] [address] [place] [address] Date Inactivated Comments Code Status Date Activated [...]
[2020-05-14] MEDS ORDERED: ZOLPIDEM TARTRATE 5 MG TAB PO PRN (12:00)
[2020-05-14] MEDS ORDERED: NITROGLYCERIN 2% OINT 1 GM PKT TOP SCH (12:00)
[2020-05-14] MEDS ORDERED: ACETAMINOPHEN 325 MG TAB PO PRN (12:00)
[2020-05-14] MEDS ORDERED: MORPHINE SULFATE 2 MG/ML SYR 1ML IV PRN (12:00)
[2020-05-14] MEDS ORDERED: DIPHENHYDRAMINE HCL INJ 50 MG/ML VIAL IV PRN (12:00)
[2020-05-14] MEDS ORDERED: ENOXAPARIN SOD INJ 40 MG/0.4 ML SYR SC ONE (12:00)
[2020-05-14] MEDS ORDERED: ENALAPRILAT IV INJ 1.25 MG/ML VIAL IV PRN (12:00)
[2020-05-14] MEDS ORDERED: MORPHINE SULFATE INJ 4 MG/ML INJ 1ML IV PRN (12:00)
[2020-05-14] MEDS ORDERED: FAMOTIDINE 20 MG TAB PO SCH (12:00)
--- NOTE | 2020-05-14 12:13 | Diagnostic Imaging Report ---
EXAMINATION: CXR 2 VIEW - HOPD INDICATION: ^chest pain ^[id number] ^1158 COMPARISON: Chest x-ray 02/25/2019 FINDINGS: PA and lateral views TUBES and LINES: None. LUNGS: Lung volumes are diminished but clear. There is no evidence of pneumonia or pulmonary edema. PLEURA: Mild eventration of the left diaphragm. No pleural effusion or pneumothorax. HEART AND MEDIASTINUM: The cardiomediastinal silhouette is unremarkable. BONES AND SOFT TISSUES: No focal osseous lesions. Soft tissues are unremarkable. UPPER ABDOMEN: Unremarkable. IMPRESSION: No acute thoracic abnormality. Signed by: Dr. Sylvester Gray MD on 05/14/2020 12:10 PM
[2020-05-14] MEDS ORDERED: ENOXAPARIN SODIUM INJ 100 MG/ML SYR SC ONE ×2 (12:15→12:57)
[2020-05-14] MEDS ORDERED: DEXTROSE 50% SYRINGE 50 ML IV PRN (12:30)
[2020-05-14] MEDS ORDERED: BENICAR40 MG (12:31)
--- NOTE | 2020-05-14 12:55 | NUR ---
Called [facility] for transport to room 205
[2020-05-14] MEDS ORDERED: FAMOTIDINE 20 MG TAB ONE (12:56)
--- OUTSIDE RECORDS SUMMARY | 2020-05-14 13:02 | XMS REPORT | Clinical Summary ---
Author Author DARIN Pencil [facility]Port[facility]uf [facility] CenterT[facility] SquareAst[facility] Organization [facility] Address Unknown Phone Unavailable Care Team Providers Care Lead Software Developer Name Role Phone Aldo Enriquez MD PCP [...] L ot Implanted Type Area Manufactur er [id number] 05/26/2020 [id number] / / [id number] Synergy Cardiovasc N/A: Heart [place] Implanted: Qty: 1 on 07/14/2018 by lukas SCI ENTIFIC Jason Estrada MD [id number] 04/04/2019 [id number] / / [id number] Device Clsr Angio-Seal Vip 6fr Cardiovasc Right: Groin ST DANI [id number] - [id number] ular MED:CARDIA Implanted: Qty: 1 on 07/14/2018 by C SURG Jason Estrada MD 12/04/2015 [id number] / / [id number] Stent,Uret F/G Contour Injection Uro Stent Bilateral: [place] 6.0/28 - [id number] Ureter SCIENTIFIC Implanted: Qty: 1 on 03/23/2014 by Melvin Loo MD Results Not on fileafter 05/14/2019 Insurance Payer Benefit Subscriber ID Type Phone Address Plan / Group AETNA - MGD CARE AETNA HMO xxxxxxxxxx HMO/POS POS QPOS Guarantor Name Account Relation to Date of Phone Billin g Address Type Patient Deondre Osei Personal/F Self 1960 [address] (Home) [place] [address] Advance Directives For more information, please contact: [facility] [address] [place] [address] Date Inactivated Comments Code Status [...]
--- OUTSIDE RECORDS SUMMARY | 2020-05-14 13:02 | XMS REPORT | Continuity of Care Document ---
Author Author [facility] t Organization [facility] t Address [address] [place] [address] Phone Unavailable Care Team Providers Care Electric Welder Helper Name Role Phone NONSTAFF PCP Unavailable Codie GUSTAFSON Attphys Unavailable Sean [facility]ARD[facility] DAHU, S JIRIES Attphys Unavailable ZENIA DAVIS Attphys Unavailable COOKIE COMBS Attphys Unavailable NELSONKARMA SHELBY Admphys Unavailable DAHU, S JIRIES Admphys Unavailable JUD, TONYA CHIMKAMA Admphys Unavailable Payers Payer Name Policy Type Policy Number Effective Date Expiration Date Filemon Ramos Pos [id number] 2015 00:00:00 [facility] Problems Condition Name Condition Details Condition Category Status Onset Date Resolution Date Last Treatment Date Treating Clinician Comments Source Hypokalemia Hypokalemia Disease Active 2018-07-13 00:00:00 [facility] Hypomagnesemia Hypomagnesemia Disease Active 2018-07-13 00:00:00 [facility] Hypothyroidism Hypothyroidism Disease Active 2018-07-13 00:00:00 [facility] RA (rheumatoid arthritis) RA (rheumatoid arthritis) Disease Ac tive 2018-07-13 00:00:00 [facility] Metabolic acidosis Metabolic acidosis Disease Active 2018-07-13 00:00:0 0 [facility] Precordial pain Precordial pain Disease Active 2018-07-11 00:00:00 [facility] Sinus tachycardia Sinus tachycardia Disease Active 2015-12-28 00:00:00 [facility] Myositis Myositis Disease Active 2015-12-28 00:00:00 [facility] Inflammation around joint Inflammation around joint Disease Ac tive 2015-12-28 00:00:00 [facility] Pneumonia Pneumonia Disease Active 2015-09-30 00:00:00 [facility] Hypertension Hypertension Disease Active 2015-05-23 00:00:00 [facility] Hyperlipidemia Hyperlipidemia Disease Active 2015-05-23 00:00:00 [facility] Anemia Anemia Disease Active 2014-11-02 00:00:00 [facility] Primary hyperparathyroidism Primary hyperparathyroidism Disease Active 2014-06-16 00:00:00 [facility] Chronic kidney failure Chronic kidney failure Disease Active 2014-04-11 00:00:00 [facility] BP (high blood pressure) BP (high blood pressure) Disease Acti ve 2014-04-11 00:00:00 [facility] AVINASH (acute kidney injury) AVINASH (acute kidney injury) Disease Ac tive 2014-03-26 00:00:00 [facility] Hypercalcemia Hypercalcemia Disease Active 2014-03-26 00:00:00 [facility] Hyperparathyroidism Hyperparathyroidism Disease Active 2014-03-26 [facility] Ne[facility]rolithiasis Nephrolithiasis Disease Active 2014-03-26 00:00:00 [facility] Gout Gout Disease Active 2014-03-26 00:00:00 [facility] CAD (coronary artery disease) CAD (coronary artery disease) Disease Active 2014-03-26 00:00:00 [facility] Exercise-induced angina Angina effort Problem Active [facility] Dyspnea Dyspnea Problem Active [facility] Allergies, Adverse Reactions, Alerts This patient has no known allergies or adverse reactions. Family History Family Member Diagnosis Comments Start Date Stop Date Source Natural brother Hyperlipidemia [facility] Natural father Heart disease [facility] Natural father Hypertension [facility] Natural mother Colon cancer [facility] Natural sister Diabetes [facility] Social History Social Habit Start Date Stop Date Quantity Comments Source Sex Assigned At [facility] Tobacco Comment 2014-06-13 00:00:00 2014-06-13 00:00:00 quit smoking 2006 [facility] Smoking Status Start Date Stop Date Source Former smoker 2018-07-15 00:00:00 2018-07-15 00:00:00 [facility] Medications Ordered Medication Name Filled Medication Name Start Date Stop Da te Current Medication? Ordering Clinician Indication Dosage Frequency Signature (SIG) Comments Components Source Albuterol Sulfate (Proair Hfa Inhaler*) 8.5 Gm Inh Alb uterol Sulfate (Proair Hfa Inhaler*) 8.5 Gm Inh 2019-02-25 00:00:00 Yes Cole Oakley Md 2 Every 4 Hours as needed for Shortness Of Breath [facility] Prednisone 20 Mg Tab Prednisone 20 Mg Tab 2019-02-25 00:00:00 Yes Cole Oakley Md 20 Daily [facility] acetaminophen (TYLENOL) 325 MG tablet 2018-07-13 00:00 :00 2019-07-08 23:59:00 No 650mg Take 2 tablets (650 mg total) by mouth every 4 (four) hours as needed for up to 360 days. [facility] brimonidine-timolol (COMBIGAN) 0.2-0.5 % ophthalmic solution 2018-07-11 04:15:39 Yes 1[drp] Q.5D 1 drop 2 (two) times daily. [facility] gabapentin (NEURONTIN) 300 MG capsule 2018-07-11 01:09:46 Yes Hyperlipidemia Q.5D Take by mouth 2 (two) times daily . [facility] clopidogrel (PLAVIX) 75 mg tablet 2018-07-11 01:09:46 Yes 75mg QD Take 75 mg by mouth daily. [facility] glimepiride (AMARYL) 4 MG tablet 2018-07-11 01:07:42 Yes Hyperlipidemia 2mg Take 2 mg by mouth every morning before breakfast . [facility] bumetanide (BUMEX) 0.5 MG tablet 2018-07-11 01:07:42 Yes .5mg Q.5D Take 0.5 mg by mouth 2 (two) times daily . [facility] colchicine (COLCRYS) 0.6 mg tablet 2018-07-11 01:07:42 Yes .6mg Take 0.6 mg by mouth Only takes MWF. [facility] aspirin 325 MG tablet 2018-07-11 01:07:42 Yes 325mg QD Take 325 mg by mouth daily. [facility] amLODIPine (NORVASC) 10 MG tablet 2017-11-19 00:00:00 Yes 10mg Take 10 mg by mouth. [facility] predniSONE (DELTASONE) 5 MG tablet 2015-12-28 18:50:22 Yes 5mg QD Take 5 mg by mouth daily. [facility] traMADol (ULTRAM) 50 mg tablet 2015-12-28 18:50:22 Yes 50mg Take 50 mg by mouth every 6 (six) hours as needed for Pain. [facility] febuxostat 40 mg tablet 2015-12-28 04:52:49 Yes 40mg QD Take 40 mg by mouth daily. [facility] hydroxychloroquine (PLAQUENIL) 200 mg tablet 2015-11-24 00:00:00 Yes 200mg Take 200 mg by mouth. [facility] olmesartan (BENICAR) 40 MG tablet 2015-10-01 00:00:00 Yes 40mg QD Take 1 tablet (40 mg total) by mouth daily. [facility] carvedilol (COREG) 25 MG tablet 2015-06-16 00:00:00 Yes Hyperlipidemia 25mg Take 1 tablet (25 mg total) by mouth 2 (two) times daily with breakfast and dinner. [facility] linagliptin (TRADJENTA) 5 mg Tab 2015-05-23 10:21:23 Yes Hyperlipidemia 5mg QD Take 5 mg by mouth daily. [facility] atorvastatin (LIPITOR) 80 MG tablet 2015-05-23 00:00:00 Yes Hyperlipidemia 80mg QD Take 1 tablet (80 mg total) by mouth daily. [facility] cholecalciferol (VITAMIN D3) 1,000 units tablet 2014-04-21 12:56 :22 Yes 5000U QD Take 5,000 Units by mouth daily. [facility] multivitamin (THERAGRAN) tablet 2014-04-21 12:56:22 Yes 1{tbl} QD Take 1 tablet by mouth daily. [facility] Amlodipine Besylate 10 Mg Tablet Amlodipine Besylate 10 Mg Tablet Yes 10 Daily [facility] Atorvastatin Calcium 20 Mg Tablet Atorvastatin Calcium 20 Mg Tablet Yes 80 Bedtime [facility] Carvedilol 12.5 Mg Tablet Carvedilol 12.5 Mg Tablet Yes 25 Twice A Day [facility] Clopidogrel Bisulfate (Clopidogrel) 75 Mg Tablet Clopi dogrel Bisulfate (Clopidogrel) 75 Mg Tablet Yes 75 Daily [facility] Furosemide 40 Mg Tablet Furosemide 40 Mg Tablet Yes 40 Daily [facility] Glimepiride 4 Mg Tablet Glimepiride 4 Mg Tablet Yes 4 Daily [facility] Hydralazine Hcl 25 Mg Tab Hydralazine Hcl 25 Mg Tab Yes 50 Three Times A Day [facility] Levofloxacin (Levaquin) 500 Mg Tablet Levofloxacin (Levaquin) 500 M g Tablet Yes 500 Daily [facility] Prednisone 5 Mg Tablet Prednisone 5 Mg Tablet Yes 5 Daily [facility] Amlodipine Besylate 10 Mg Tablet, Amlodipine Besylate 10 Mg Tabl et, 2019-02-25 00:00:00 No [facility] Atorvastatin Calcium 80 Mg Tablet, Atorvastatin Calcium 80 Mg Ta blet, 2019-02-25 00:00:00 [facility] Carvedilol 25 Mg Tablet, Carvedilol 25 Mg Tablet, 2019-02-25 00: 00:00 [facility] Clopidogrel Bisulfate (Clopidogrel) 75 Mg Tablet, Clop idogrel Bisulfate (Clopidogrel) 75 Mg Tablet, 2019-02-25 00:00:00 [facility] Furosemide 40 Mg Tablet, Furosemide 40 Mg Tablet, 2019-02-25 00: 00:00 No [facility] Glimepiride 4 Mg Tablet, Glimepiride 4 Mg Tablet, 2019-02-25 00: 00:00 No [facility] Hydralazine Hcl 50 Mg Tablet, Hydralazine Hcl 50 Mg Tablet, 2019-02-25 00:00:00 No [facility] Levofloxacin 500 Mg Tablet, Levofloxacin 500 Mg Tablet, 2019-02-25 00:00:00 [facility] Prednisone 5 Mg Tablet, Prednisone 5 Mg Tablet, 2019-02-25 00:00 :00 [facility] Procedures This patient has no known procedures. Plan of Care Planned Activity Planned Date Details Comments Source Future Scheduled Test 2024-11-08 00:00:00 Screening for jasvir gnant neoplasm of colon (procedure) [code = 636250721] [facility] Future Scheduled Test 2021-07-12 00:00:00 Lipid panel (proce dure) [code = 48468191] [facility] Future Scheduled Test 2020-06-06 00:00:00 INFLUENZA VACCINE (#1) [code = INFLUENZA VACCINE (#1)] [facility] Future Scheduled Test 1966 00:00:00 PNEUMOCOCCAL VACCI NE 2-64 YEARS AT RISK (1 of 3 - PCV13) [code = PNEUMOCOCCAL VACCINE 2-64 YEARS AT RISK (1 of 3 - PCV13)] [facility] Encounters Start Date/Time End Date/Time Encounter Type Admission Type Att[facility] Care Department Encounter ID Source 2019-05-07 08:16:36 2019-05-07 09:51:34 Office Visit Jason Estrada [facility] [id number] 2019-02-24 15:52:00 2019-02-25 12:36:00 Discharged Inpatient (obs) 1 JAVIER HITCHCOCK [facility] [id number] [facility] Results Test Description Test Time Test Comments Results Result Comments Source CXR 2 VIEW - HOPD 2020-05-14 12:09:00 [facility] [address] [place] [address] Patient Name: SUHA MARIE MR #: [id number] : 1960 Age/Sex: 60/M Req #: [id number] [facility] Physician: Ordered by: ROQUE GUSTAFSON MD Report #: [id number] Location: FS Room/Bed: Procedure: [id number] HOPD/CXR 2 VIEW - HOPD Exam Date: 05/14/20 Exam Time: 1158 REPORT STATUS: Signed EXAMINATION: CXR 2 VIEW - HOPD INDICATION: chest pain [id number] COMPARISON: Chest x-ray 02/25/2019 FINDINGS: PA and lateral views TUBES and LINES: None. LUNGS: Lung volumes are diminished but clear. There is no evidence of pneumonia or pulmonary edema. PLEURA: Mild eventration of the left diaphragm. No pleural effusion or pneumothorax. HEART AND MEDIASTINUM: The cardiomediastinal silhouette is unremarkable. BONES AND SOFT TISSUES: No focal osseous lesions. Soft tissues are unremarkable. UPPER ABDOMEN: Unremarkable. IMPRESSION: No acute thoracic abnormality. Signed by: Dr. Sylvester Raza MD on 05/14/2020 12:10 PM Dictated By: SYLVESTER RAZA MD 1210 Transcribed By: HOLGER on 05/14/20 1210 COPY TO: ROQUE GUSTAFSON MD Sodium Level 2019-02-25 07:00:00 Test Item Sodium Level (test code = 2951-2) 138 136-145 [facility]Potassium [id number] 07:00:00* Test Item Value Reference Range Interpretation Comments Potassium Level (test code = 2823-3) 4.2 3.5-5.1 [facility] ChildrenChloride [id number] 07:00:00* Test Item Value Reference Range Interpretation Comments Chloride Level (test code = 2075-0) 103 98-107 [facility] ChildrenCarbon Dioxide [id number] 07:00:00* Test Item Value Reference Range Interpretation Comments Carbon Dioxide Level (test code = 2028-9) 20 22-29 L [facility] ChildrenAnion Sgo2851-64-15 07:00:00* Test Item Value Reference Range Interpretation Comments Anion Gap (test code = 68953-7) 19.2 8-16 H [facility] ChildrenBlood Urea [id number] 07:00:00* Test Item Value Reference Range Interpretation Comments Blood Urea Nitrogen (test code = 3094-0) 35 7-26 H [facility] ChildrenCreatinine2019-05-23 07:00:00* Test Item Value Reference Range Interpretation Comments Creatinine (test code = 2160-0) 2.07 0.72-1.25 H [facility] ChildrenBUN/Creatinine [id number] 07:00:00* Test Item Value Reference Range Interpretation Comments BUN/Creatinine Ratio (test code = 3097-3) 17 6-25 [facility] ChildrenEstimat Glomerular Filtration Rate 2019-02-25 07:00:00* Test Item Value Reference Range Interpretation Comments Estimat Glomerular Filtration Rate (test code = 358671695) 33 >60 L Ranges were taken from the National Kidney Disease Education Program and the [facility] Foundation literature.Reference ranges:60 or greater: Lcsejb71-52 ( for 3 consecutive months): Chronic kidney disease 15 or less: Kidney failureTexas [facility] Rite Hospital for ChildrenGlucose Engyr1108-47-31 07:00:00* Test Item Value Reference Range Interpretation Comments Glucose Level (test code = GMR1602) 155 74-118 H [facility] ChildrenCalcium Vwwed3028-35-42 07:00:00* Test Item Value Reference Range Interpretation Comments Calcium Level (test code = 38323-4) 9.2 8.4-10.2 [facility] ChildrenTotal Dpifytgar6459-28-37 07:00:00* Test Item Value Reference Range Interpretation Comments Total Bilirubin (test code = 1975-2) 0.6 0.2-1.2 [facility] ChildrenAspartate Amino Transf (AST/SGOT) 2019-02-25 07:00:00* Test Item Value Reference Range Interpretation Comments Aspartate Amino Transf (AST/SGOT) (test code = Aspartate Amino Transf (AST/SGOT)) 32 5-34 [facility] ChildrenAlanine Aminotransferase (ALT/SGPT) 2019-02-25 07:00:00* Test Item Value Reference Range Interpretation Comments Alanine Aminotransferase (ALT/SGPT) (test code = 1742-6) 43 0-55 [facility] Igrgwrl4015-14-11 07:00:00* Test Item Value Reference Range Interpretation Comments Total Protein (test code = 2885-2) 7.2 6.5-8.1 [facility] ChildrenAlbumin2019-05-23 07:00:00* Test Item Value Reference Range Interpretation Comments Albumin (test code = 1751-7) 3.8 3.5-5.0 [facility] ChildrenGlobulin2019-05-23 07:00:00* Test Item Value Reference Range Interpretation Comments Globulin (test code = 80261-8) 3.4 2.3-3.5 [facility] ChildrenAlbumin/Globulin Unohj5044-93-79 07:00:00 * Test Item Value Reference Range Interpretation Comments Albumin/Globulin Ratio (test code = 1759-0) 1.1 0.8-2.0 [facility] ChildrenAlkaline Pvzfzwiqjlk1521-72-43 07:00:00* Test Item Value Reference Range Interpretation Comments Alkaline Phosphatase (test code = 6768-6) 52 40-150 [facility] ChildrenTriglycerides Rtuss1334-57-50 06:22:00* Test Item Value Reference Range Interpretation Comments Triglycerides Level (test code = 2571-8) 106 0-149 [facility] ChildrenCholesterol Aqirr8172-82-53 06:22:00* Test Item Value Reference Range Interpretation Comments Cholesterol Level (test code = 2093-3) 141 0-199 Less than 200 mg/dL Low Sjsz200 - 239 mg/dL Borderline Lubm127 m g/dl and greater High Risk [facility] for ChildrenLDL Vuddmqmislo2291-74-85 06:22:00* Test Item Value Reference Range Interpretation Comments LDL Cholesterol (test code = 2089-1) 80 60-130 [facility] ChildrenHDL Tliywfiftyf3579-89-74 06:22:00* Test Item Value Reference Range Interpretation Comments HDL Cholesterol (test code = 2085-9) 40 40-60 [facility] ChildrenCholesterol/HDL Aiyco6138-61-94 06:22:00 * Test Item Value Reference Range Interpretation Comments Cholesterol/HDL Ratio (test code = 9830-1) 3.5 3.9-4.7 L [facility] ChildrenMagnesium Niuex2437-81-85 06:07:00* Test Item Value Reference Range Interpretation Comments Magnesium Level (test code = 74931-0) 2.1 1.3-2.1 [facility] ChildrenCreatine Zskcac7435-21-48 05:59:00* Test Item Value Reference Range Interpretation Comments Creatine Kinase (test code = 2157-6) 219 30-200 H [facility] ChildrenCreatine Kinase EA6247-48-95 05:54:00* Test Item Value Reference Range Interpretation Comments Creatine Kinase MB (test code = 19268-0) 1.60 0-5.0 [facility] ChildrenTroponin H4003-12-42 05:54:00* Test Item Value Reference Range Interpretation Comments Troponin I (test code = HFE7026) 0.009 0-0.300 [facility] ChildrenCHEST SINGLE (PORTABLE)2019-02-25 05:49:00 [place] [address] Patient Name: SUHA MARIE MR #: [id number] : 1960 Age/Sex: 58/M Req #: [id number] Adm Physician: JAVIER HITCHCOCK MD Ordered by: COLE OAKLEY MD Report #: [id number] Location: [facility] Room/Bed: [facility] 1771 Procedure: [id number] DX/ CHEST SINGLE (PORTABLE) Exam Date: 02/25/19 [...] with pulmonary venous congestion Signed by: Dr. Hanh Santana M.D. on 5:51 AM Dictated By: HANH SANTANA MD 0 Transcribed By: HOLGER on 02/25/19 COPY TO: COLE OAKLEY MD, [facility] White Blood Veklq4820-11-30 05:35:00* Test Item Value Reference Range Interpretation Comments White Blood Count (test code = 6690-2) 7.47 4.8-10.8 [facility] ChildrenRed Blood Vlrrf1486-63-74 05:35:00* Test Item Value Reference Range Interpretation Comments Red Blood Count (test code = 789-8) 3.89 4.3-5.7 L [facility] ChildrenHemoglobin2019-05-23 05:35:00* Test Item Value Reference Range Interpretation Comments Hemoglobin (test code = 62258-5) 12.2 14.0-18.0 L [facility] ChildrenHematocrit2019-05-23 05:35:00* Test Item Value Reference Range Interpretation Comments Hematocrit (test code = 4544-3) 36.8 38.2-49.6 L [facility] ChildrenMean Corpuscular Phrjxh4168-01-81 05:35:00* Test Item Value Reference Range Interpretation Comments Mean Corpuscular Volume (test code = 787-2) 94.6 81-99 [facility] ChildrenMean Corpuscular Bjzwanmxow5709-47-17 05:35:00* Test Item Value Reference Range Interpretation Comments Mean Corpuscular Hemoglobin (test code = 785-6) 31.4 28-32 [facility] ChildrenMean Corpuscular Hemoglobin Concent 2019-02-25 05:35:00* Test Item Value Reference Range Interpretation Comments Mean Corpuscular Hemoglobin Concent (test code = 786-4) 33.2 31-35 [facility] ChildrenRed Cell Distribution Galzo8504-94-88 05:35:00* Test Item Value Reference Range Interpretation Comments Red Cell Distribution Width (test code = 24147-6) 12.8 11.7 -14.4 [facility] ChildrenPlatelet Cgnsk9512-91-48 05:35:00* Test Item Value Reference Range Interpretation Comments Platelet Count (test code = 777-3) 162 140-360 [facility] ChildrenNeutrophils (%) (Auto)2019-02-25 05:35:00 * Test Item Value Reference Range Interpretation Comments Neutrophils (%) (Auto) (test code = 58771-1) 85.2 38.7-80.0 H [facility] ChildrenLymphocytes (%) (Auto)2019-02-25 05:35:00 * Test Item Value Reference Range Interpretation Comments Lymphocytes (%) (Auto) (test code = 736-9) 10.4 18.0-39.1 L [facility] ChildrenMonocytes (%) (Auto)2019-02-25 05:35:00* Test Item Value Reference Range Interpretation Comments Monocytes (%) (Auto) (test code = 5905-5) 1.9 4.4-11.3 L [facility] ChildrenEosinophils (%) (Auto)2019-02-25 05:35:00 * Test Item Value Reference Range Interpretation Comments Eosinophils (%) (Auto) (test code = 713-8) 0.4 0.0-6.0 [facility] ChildrenBasophils (%) (Auto)2019-02-25 05:35:00* Test Item Value Reference Range Interpretation Comments Basophils (%) (Auto) (test code = 706-2) 0.4 0.0-1.0 [facility] ChildrenIM GRANULOCYTES %2019-02-25 05:35:00* Test Item Value Reference Range Interpretation Comments IM GRANULOCYTES % (test code = IM GRANULOCYTES %) 1.7 0.0- 1.0 H [facility] ChildrenNeutrophils # (Auto)2019-02-25 05:35:00* Test Item Value Reference Range Interpretation Comments Neutrophils # (Auto) (test code = 751-8) 6.4 2.1-6.9 [facility] ChildrenLymphocytes # (Auto)2019-02-25 05:35:00* Test Item Value Reference Range Interpretation Comments Lymphocytes # (Auto) (test code = 02869-8) 0.8 1.0-3.2 L [facility] ChildrenMonocytes # (Auto)2019-02-25 05:35:00* Test Item Value Reference Range Interpretation Comments Monocytes # (Auto) (test code = 742-7) 0.1 0.2-0.8 L [facility] ChildrenEosinophils # (Auto)2019-02-25 05:35:00* Test Item Value Reference Range Interpretation Comments Eosinophils # (Auto) (test code = 711-2) 0.0 0.0-0.4 [facility] ChildrenBasophils # (Auto)2019-02-25 05:35:00* Test Item Value Reference Range Interpretation Comments Basophils # (Auto) (test code = 704-7) 0.0 0.0-0.1 [facility] ChildrenAbsolute Immature Granulocyte (auto 2019-02-25 05:35:00* Test Item Value Reference Range Interpretation Comments Absolute Immature Granulocyte (auto (brittany t code = Absolute Immature Granulocyte (auto) 0.13 0-0.1 H [facility] VENT HLXWKTUNO0600-70-30 20:33:00 [facility] [address] [place] [address] Patient Name: SUHA MARIE MR #: [id number] : 1960 Age/Sex: 58/M Req #: [id number] Adm Physician: JAVIER HITCHCOCK MD Ordered by: DELROY KUHN MD Report #: [id number] Location: [facility] Room/Bed: [place] [address] Procedure: [id number] N M/VQ LUNG SCAN VENT PERFUSION Exam Date: Exam Ti me: REPORT STATUS: Signed Perfu angela/Aerosol Lung Study Clinical Information: Shortness of breath Comp arison: Chest radiograph 02/24/2019 Discussion: Ventilation images of [facility] were obtained in multiple projections following administration [...] DELROY KUHN MD CXR 1 VEW - [id number] 14:26:00 [place] [address] Patient Name: SUHA MARIE MR #: [id number] : 1960 Age/Sex: 58/M Req #: [id number] Adm Physician: Ordered by: DELROY KUHN MD Report #: [id number] Location: [facility] Room/Bed: Procedure: [id number] PD/CXR 1 VEW - HOPD Exam Date: 02/24/19 Exam Time: 1 424 REPORT STATUS: Signed Examin ation: Single AP [...] 2:28 PM Dictated By: SEN NDIAYE MD [facility] Signed By: SEN NDIAYE MD on 02/24/191427 [...] = 413) 0 /100 WBC 0 -0 [id number] 18:50:00* Test Item Value Reference Range Interpretation Comments ACTIVATED CLOTTING TIME (BEAKER) (test code = 441) 268 sec TESTED AT [facility] [address] [facility] [address] [id number] 18:50:00* Test Item Value Reference Range Interpretation Comments ACTIVATED CLOTTING TIME (BEAKER) (test code = 441) 252 sec TESTED AT [place] [id number] [facility] [address] [id number] 18:50:00* Test Item Value Reference Range Interpretation Comments ACTIVATED CLOTTING TIME (BEAKER) (test code = 441) 241 sec TESTED AT [address] [address] [id number] 05:27:00* Test Item Value Reference Range Interpretation Comments PHOSPHORUS (BEAKER) (test code = 604) 3.6 mg/dL 2.3-4.7 [id number] 05:27:00* Test Item Value Reference Range Interpretation Comments MAGNESIUM (BEAKER) (test code = 627) 2.0 mg/dL 1.6-2.6 BASIC METABOLIC [id number] 05:27:00* Test Item Value Reference Range Interpretation [...] PET, CARDIAC PERFUSION MULTIPLE STUDIES, REST AND [id number] 15:25:00 Reason for exam:->Chest pain, recent PCIFINAL REPORT PROCEDURE: Rest/Stress MYOCARDIAL PERFUSION PET with regadenoson\XA9\ CPT CODE: 62643 INDICATION: Chest pain HISTORY: Cardiac risk factors: The diabetes, hypertension, hyperlipidemia, CKD. Other cardiovascular history: CAD, OH, PCI, CHF. Recent cardiac symptoms: Chest pain. [...] tracer distribution is normal. 6. No previous [facility] study for comparison. Signed: Yuri Chan MDRort Verified Date/Time: 07/13/2018 15:25:45 Reading Location: [address] Reading Room [id number] 05:20:00* Test Item Value Reference Range Interpretation Comments PHOSPHORUS (BEAKER) (test code = 604) 3.8 mg/dL 2.3-4.7 [id number] 05:20:00* Test Item Value Reference Range Interpretation Comments MAGNESIUM (BEAKER) (test code = 627) 1.7 mg/dL 1.6-2.6 BASIC METABOLIC [id number] 05:20:00* Test Item Value Reference Range Interpretation [...] 0 /100 WBC 0 -0 BASIC METABOLIC [id number] 22:55:00* Test Item Value Reference Range Interpretation [...] GFR IS NOT APPLICABLE FOR DIALYSIS PATIENTS. [id number] 06:04:00* Test Item Value Reference Range Interpretation Comments PHOSPHORUS (BEAKER) (test code = 604) 3.9 mg/dL 2.3-4.7 [id number] 06:04:00* Test Item Value Reference Range Interpretation Comments MAGNESIUM (BEAKER) (test code = 627) 2.0 mg/dL 1.6-2.6 LIPID [id number] 06:04:00* Test Item Value Reference Range Interpretation [...] 130-159 High 160-189 Very High >=190 TROPONIN [id number] 14:44:00* Test Item Value Reference Range Interpretation Comments TROPONIN I (BEAKER) (test code = 397) 0.07 ng/mL 0.00-0.03 [...] acute neurological disease, and per sistent tachyarrhythmia.TROPONIN [id number] 06:25:00* Test Item Value Reference Range Interpretation Comments TROPONIN I (BEAKER) (test code = 397) 0.07 ng/mL 0.00-0.03 [...] per sistent tachyarrhythmia.RAD, CHEST, 1 VIEW, NON [id number] 01:02:00Reason for exam:->CHEST PAINFINAL REPORT Chest, 1 view. History: Chest pain Comparison: Chest, 02/17/2018.. Findings: The cardiomediastinal silhouette and pulmonary vasculature are within normal limits for a portable exam. The lungs are clear without evidence of consolidation or effusion. The soft tissues and osseous structures are intact. IMPRESSION: No acute cardiopulmonary abnormality. Signed: Cally Moon Verified Date/Time: 07/11/2018 01:02:58 Reading Location: [address] Transitional Reading Room ONIN [id number] 00:32:00* Test Item Value Reference Range Interpretation Comments TROPONIN I (JESSICA) (test code = 397) 0.08 ng/mL 0.00-0.03 [...] (test code = 700) 92 pg/mL 0-100 [id number] 00:22:00* Test Item Value Reference Range Interpretation Comments MAGNESIUM (BEAKER) (test code = 627) 1.7 mg/dL 1.6-2.6 BASIC METABOLIC [id number] 00:22:00* Test Item Value Reference Range Interpretation [...] GFR IS NOT APPLICABLE FOR DIALYSIS PATIENTS. [id number] 00:19:00* Test Item Value Reference Range Interpretation [...] mechanical heart valves.CBC W/PLT COUNT & AUTO [id number] 00:14:00* Test Item Value Reference Range Interpretation [...] = 700) 122 pg/mL 0-100 H TROPONIN [id number] 03:34:00* Test Item Value Reference Range Interpretation [...] neurological disease, and per sistent tachyarrhythmia.COMPREHENSIVE METABOLIC [id number] 03:31:00* Test Item Value Reference Range Interpretation [...] APPLICABLE FOR DIALYSIS PATIENTS. RAD, CHEST, 2 [id number] 03:18:00Reason for exam:->DIZZINESSFINAL REPORT Examination: Two view Chest X-ray. CLINICAL HISTORY: Dizziness COMPARISON: 09/30/2015 The cardiomediastinal and hilar contours are unremarkable. There is no focal consolidation, pleural effusion, pneumothorax or evidence of overt pulmonary edema. There is no acute bony abnormality. IMPRESSION: No acute abnormality. Signed: Tarik Beth Verified Date /Time: 02/17/2018 03:18:42 Reading Location: [address] Reading [facility] W/PLT COUNT & AUTO [id number] 03:14:00* Test Item Value Reference Range Interpretation [...] K/ L 0. 00-0.20 CT, BRAIN, WITHOUT [id number] 03:13:00Reason for exam:->DIZZINESSWhat is the patient's sedation [...] MDReport Verified Date/Time: 02/17/2018 03:13:59 Reading Location: [facility] C013Y CT Body Reading Room [facility] signed by: RUFINA GOLDSTEIN on 02/17/2018 03:13 AM URINALYSIS W/ [id number] 03:06:00* Test Item Value Reference Range Interpretation [...] code = 1663) None Seen /H PF SOURCE(BEAKER) (test code = 3825)
[2020-05-14] MEDS ORDERED: INSULIN REGULAR, HUMAN 100 UNIT/1 ML 3ML VIAL SQ SCH (16:30)
[2020-05-14] MEDS ORDERED: SIMVASTATIN 40 MG TAB PO SCH (21:00)
[2020-05-15] MEDS ORDERED: ASPIRIN 325 MG TAB EC PO SCH (09:00)
[2020-05-15] MEDS ORDERED: CLOPIDOGREL BISULFATE 75 MG TAB PO SCH (09:00)
== END 2020-05-14 13:25 | disposition left against medical advice (07) ==
LOC: FSED 11:17 → ERHOLD 11:59 → UNDOADMOB 11:59 → FSED 13:25
DX: I20.0 Unstable angina (principal); R94.31 Abnormal electrocardiogram [ECG] [EKG]; E11.9 Type 2 diabetes mellitus without complications; I10 Essential (primary) hypertension; N18.9 Chronic kidney disease, unspecified; M1A.9XX1 Chronic gout, unspecified, with tophus (tophi); I25.2 Old myocardial infarction; Z95.5 Presence of coronary angioplasty implant and graft
CPT/HCPCS: 71046; 80053; 84484; 85025; 85610; 93005; 96374; 99284; J2405; J1650

== ENCOUNTER 2020-09-04 06:33 | Emergency (ER) | payer OTHER ==
[~2020-09-04] VITALS: Ht 177.8 cm; Wt 121.6 kg
[~2020-09-04 06:33] MED LIST changes: +BENICAR40 MG
[2020-09-04] MEDS ORDERED: ASPIRIN 81 MG CHEW TAB PO ONE (08:15)
[2020-09-04] MEDS ORDERED: ASPIRIN 81 MG CHEW TAB ONE (08:28)
[2020-09-04 14:27] VITALS: BP 123/64
== END 2020-09-04 14:26 | disposition home or self-care (01) ==
LOC: FSED 07:10 → ERHOLD 08:06 → UNDOADMOB 08:06 → FSED 14:26
DX: R06.00 Dyspnea, unspecified (principal); I25.10 Atherosclerotic heart disease of native coronary artery without angina pectoris; R94.31 Abnormal electrocardiogram [ECG] [EKG]; I10 Essential (primary) hypertension; D64.9 Anemia, unspecified; I25.2 Old myocardial infarction; N18.30 Chronic kidney disease, stage 3 unspecified; M1A.9XX1 Chronic gout, unspecified, with tophus (tophi); Z20.828 Contact with and (suspected) exposure to other viral communicable diseases
CPT/HCPCS: 71045; 78582; 80053; 82553; 83880; 84484; 85025; 85379; 93005; 99284; A9540; U0002